=== PATIENT | female | born 1975 | race African-American/Black ===

== ENCOUNTER 2021-09-15 22:48 | Emergency (ER) | payer BC ==
[~2021-09-15] VITALS: Ht 167.6 cm; Wt 61.2 kg
--- NOTE | 2021-09-15 22:56 | NUR ---
[id number] FROM [facility] C/O SOB +ACCESSORY MUSCLE USE SINCE 10PM. PT A/OX1. O2 T-PIECE @ 4LPM SATTING AT 96%. CONNECTED PT TO POX AND MONITOR. SAFETY MEASURES IN PLACE
[2021-09-15] MEDS ORDERED: ACETAMINOPHEN 650 MG/SUPP.RECT RC ONE ×2 (23:00→23:15)
--- NOTE | 2021-09-15 23:05 | NUR ---
COVID ANTIGEN AND MRSA SWAB COLLECTED AND SENT TO LAB
--- NOTE | 2021-09-15 23:05 | NUR ---
LAC #20G S/L ; PATENT AND INTACT
--- NOTE | 2021-09-15 23:07 | NUR ---
METAL WINDOW SCREEN ASSEMBLER AT PT'S BEDSIDE
[2021-09-15] MEDS ORDERED: IPRA4AER IH ×2 (23:08)
[2021-09-15] MEDS ORDERED: LEVE100S GT (23:08)
[2021-09-15] MEDS ORDERED: METO-295 GT (23:08)
[2021-09-15] MEDS ORDERED: NUTR1PAC14 GT (23:08)
[2021-09-15] MEDS ORDERED: METO25TA6 GT (23:08)
[2021-09-15] MEDS ORDERED: FERR220E2 GT (23:08)
[2021-09-15] MEDS ORDERED: AMLO-212 PO (23:08)
[2021-09-15] MEDS ORDERED: CHOL100062 GT (23:08)
[2021-09-15] MEDS ORDERED: CHLO473M3 PO (23:08)
[2021-09-15] MEDS ORDERED: CLON0.1T GT (23:08)
--- NOTE | 2021-09-15 23:25 | NUR ---
F/C 16FR INSERTED. URINE COLLECTED AND SENT TO LAB
[2021-09-15 23:26] LABS: BASOPHILS # (AUTO) 0.3 K/uL (0.0-0.2); BASOPHILS % (AUTO) 1.2 % (0.0-2.0); EOSINOPHILS % (AUTO) 3.1 % (0.0-6.0); HEMATOCRIT 31 % (33-45); HEMOGLOBIN 9.7 g/dL (11.5-14.8); LYMPHOCYTES % (AUTO) 12.4 % (20.0-44.0); MEAN CORPUSCULAR HGB CONC 32 g/dl (31.0-36.0); MEAN CORPUSCULAR VOLUME 85 fL (82-100); MONOCYTES # (AUTO) 1.1 K/uL (0.1-1.30); MONOCYTES % (AUTO) 4.6 % (2.0-12.0); NEUTROPHILS # (AUTO) 19.1 K/uL (1.8-8.9); NEUTROPHILS % (AUTO) 78.7 % (43.0-81.0); PLATELET COUNT (AUTO) 402 K/uL (150-450); WHITE BLOOD COUNT (AUTO) 24.3 K/uL (4.3-11.0)
[2021-09-15 23:50] LABS: CALCIUM, SERUM 9.4 mg/dL (8.5-10.1); CARBON DIOXIDE 29 mmol/L (21-32); CHLORIDE 102 mmol/L (98-107); CREATININE 0.6 mg/dL (0.6-1.3); GLUCOSE 169 mg/dL (74-106); POTASSIUM 4.3 mmol/L (3.5-5.1); SODIUM SERUM 138 mmol/L (136-145); UREA NITROGEN, BLOOD 22 mg/dL (7-18)
[2021-09-15 23:58] LABS: BILIRUBIN,URINE NEGATIVE (NEGATIVE); COLOR,URINE YELLOW (YELLOW); LEUKOCYTE ESTERASE ,URINE SMALL (NEGATIVE); NITRITE, URINE NEGATIVE (NEGATIVE); PROTEIN,URINE 30 mg/dl (NEGATIVE); UGLUCOSE NEGATIVE (NEGATIVE); UROBILINOGEN,URINE 0.2 EU/dL (0.2)
[2021-09-15 23:58] LABS: ALANINE AMINOTRANSFERASE 43 U/L (12-78); ALBUMIN 2.8 g/dL (3.4-5.0); ALKALINE PHOSPHATASE 250 U/L (46-116); ASPARTATE AMINOTRANSFERASE 21 U/L (15-37); BILIRUBIN,DIRECT 0.1 mg/dL (0.0-0.2); BILIRUBIN,TOTAL 0.2 mg/dL (0.2-1.0); TOTAL PROTEIN, SERUM 7.5 g/dL (6.4-8.2)
[2021-09-16] MEDS ORDERED: CEFTRIAXONE 1GM BAG (ER ONLY) 50 ML IV ONE (00:19)
[2021-09-16] MEDS ORDERED: IOHEXOL-350 100 ML VIAL IV ONE (00:28)
[2021-09-16] MEDS ORDERED: IV NS 0.9% 250 ML IV ONE (00:28)
[2021-09-16] MEDS ORDERED: CEFTRIAXONE 1GM BAG (ER ONLY) 1 GM/50 ML PIGGYBACK IV ONE (00:30)
--- NOTE | 2021-09-16 01:12 | NUR ---
Sky noble in [facility] - 09/16/21 at 0114 by REAGAN COUNTER TOP MAKER AT PT'S BEDSIDE
--- NOTE | 2021-09-16 01:30 | NUR ---
CLINICAL INFO REPORT GIVEN TO DAFNE FROM [facility] FAXED COVID RESULT TO [phone]
[2021-09-16] MEDS ORDERED: AZITHROMYCIN 500 MG VIAL ONE (02:24)
--- NOTE | 2021-09-16 02:28 | NUR ---
PER [facility], PT ACCEPTED TO [facility] ACCEPTED UNDER DR. RAY, ROOM 542 CALL FOR REPORT [phone]
[2021-09-16] MEDS ORDERED: AZITHROMYCIN 500 MG in IV D5W 250 ML IV ONE (02:30)
--- NOTE | 2021-09-16 02:33 | NUR ---
CALLED [facility] FOR REPORT. NURSE GETTING REPORT WILL BE LISA. TOLD TO CALL BACK IN 10 MINUTES TO GIVE REPORT.
--- NOTE | 2021-09-16 04:13 | NUR ---
PER JAIDA NO ACLS IN ALL OF [place].
--- NOTE | 2021-09-16 05:25 | NUR ---
AM MITALI, PER JAIDA EARLIEST ETA 1300 HRS FOR ACLS.
--- NOTE | 2021-09-16 05:28 | NUR ---
CALLED [facility] FOR REPORT. TOLD TO GIVEN REPORT AFTER CHANGE OF SHIFT.
[2021-09-16 06:30] LABS: WBC,URINE 0-2 /HPF (0-3)
[2021-09-16 06:33] LABS: BACTERIA,URINE Few /HPF (None Seen); URIC ACID CRYSTALS,URINE Few /HPF (None Seen)
--- NOTE | 2021-09-16 06:54 | NUR ---
[facility] CALLED FOR AN UPDATE FOR EXHIBIT CARPENTER. PT WILL BE EXHIBIT CARPENTER AT 0482
--- NOTE | 2021-09-16 07:12 | NUR ---
REPORT GIVEN TO NATALIIA MURPHY FROM [facility] FOR MARVA.
[2021-09-16 11:10] VITALS: BP 120/66
== END 2021-09-16 11:43 | disposition short-term general hospital (02) ==
LOC: ER 22:54
DX: N39.0 Urinary tract infection, site not specified (principal); J18.9 Pneumonia, unspecified organism; R09.02 Hypoxemia; Z20.822 Contact with and (suspected) exposure to COVID-19; R94.31 Abnormal electrocardiogram [ECG] [EKG]; Z93.0 Tracheostomy status; R00.0 Tachycardia, unspecified; J96.90 Respiratory failure, unspecified, unspecified whether with hypoxia or hypercapnia; I10 Essential (primary) hypertension; Z87.820 Personal history of traumatic brain injury
CPT/HCPCS: 31720 ×2; 36415; 71045; 71275; 80048; 80076; 81001; 83605; 83880; 84484; 85025; 85730; 87040 ×2; 87086; 87081; 87426; 93005; 94799; 96365; 96367; 99285; C9803; J0456; J0696; J7050; Q9967

== ENCOUNTER 2022-02-11 09:44 | Inpatient (IN) | payer BC, OTHER ==
[~2022-02-11] VITALS: Ht 172.7 cm; Wt 69.4 kg
[2022-02-11] VITALS (32 sets, daily range): BP systolic 83–128; BP diastolic 25–60
[~2022-02-11 09:44] MED LIST: AMLO-212 GT; CHLO473M3 MM; CHOL100062 GT; CLON0.1T GT; FERR220E2 GT; IPRA4AER IH; LEVE100S GT; METO-295 GT; METO25TA6 GT; NUTR1PAC14 GT
--- NOTE | 2022-02-11 09:50 | NUR ---
RECIVED PT 46 YRS FEMALE TRANSFER from snf for low temp and low HR and LOW BP 86/55MMHG HR 54B/MIN SKIN PALE AND COLD TO TOUCH
--- NOTE | 2022-02-11 09:55 | NUR ---
SEEN BY DR. TOURE sept work up started
[2022-02-11] MEDS ORDERED: IV LR 1000 ML 1,000 ML IV ONE (10:00)
--- NOTE | 2022-02-11 10:10 | NUR ---
ELIDA [facility] PT CLOSED and keep warm and dry temp 88.4f RECTEL TEMP 4 WORM BLANCKET ELIDA AND BERHGER WARMER
--- NOTE | 2022-02-11 10:15 | NUR ---
I7o cathter done ua send to lab
--- NOTE | 2022-02-11 10:25 | NUR ---
QUANG TREVIZO SENT TO LAB
--- NOTE | 2022-02-11 10:30 | NUR ---
INSERTED ANGO CATHETER g [address] ac blood drow and sent to lab blood cultuer x 1 sent
[2022-02-11 10:33] LABS: BASOPHILS % (AUTO) 0.8 % (0.0-2.0); EOSINOPHILS % (AUTO) 2.7 % (0.0-6.0); LYMPHOCYTES # (AUTO) 0.8 K/uL (0.8-4.8); LYMPHOCYTES % (AUTO) 14.4 % (20.0-44.0); MEAN CORPUSCULAR HGB CONC 32 g/dl (31.0-36.0); MEAN CORPUSCULAR VOLUME 90 fL (82-100); MONOCYTES # (AUTO) 0.2 K/uL (0.1-1.30); MONOCYTES % (AUTO) 4.1 % (2.0-12.0); NEUTROPHILS # (AUTO) 4.2 K/uL (1.8-8.9); PLATELET COUNT (AUTO) 57 K/uL (150-450); RED BLOOD CELL COUNT(AUTO) 2.26 MIL/uL (4.0-5.2); WHITE BLOOD COUNT (AUTO) 5.4 K/uL (4.3-11.0)
[2022-02-11 10:36] LABS: HEMOGLOBIN 6.4 g/dL (11.5-14.8)
[2022-02-11 10:37] LABS: HEMATOCRIT 20 % (33-45)
[2022-02-11 10:46] LABS: CARBON DIOXIDE 32 mmol/L (21-32); CHLORIDE 104 mmol/L (98-107); CREATININE 0.4 mg/dL (0.6-1.3); GLUCOSE 93 mg/dL (74-106); POTASSIUM 5.4 mmol/L (3.5-5.1); SODIUM SERUM 139 mmol/L (136-145); UREA NITROGEN, BLOOD 16 mg/dL (7-18)
[2022-02-11 10:51] LABS: ALANINE AMINOTRANSFERASE 234 U/L (12-78); ALKALINE PHOSPHATASE 202 U/L (46-116); ASPARTATE AMINOTRANSFERASE 66 U/L (15-37); BILIRUBIN,TOTAL 0.2 mg/dL (0.2-1.0); TOTAL PROTEIN, SERUM 6.3 g/dL (6.4-8.2)
[2022-02-11] MEDS ORDERED: ACET325T53 GT (10:56)
[2022-02-11] MEDS ORDERED: CHOL200013 GT (10:56)
[2022-02-11] MEDS ORDERED: LACT-209 GT (10:56)
[2022-02-11] MEDS ORDERED: DOCU-141 GT (10:56)
[2022-02-11] MEDS ORDERED: BISA10SU11 RC (10:56)
[2022-02-11] MEDS ORDERED: MULT-439 GT (10:56)
[2022-02-11] MEDS ORDERED: ENOX40DI SQ (10:56)
[2022-02-11] MEDS ORDERED: NA P133E RC (10:56)
[2022-02-11] MEDS ORDERED: PIPERACILLIN /TAZOBACTAM 3.375 G in IV D5W 50 ML IV ONE (11:00)
[2022-02-11] MEDS ORDERED: AZITHROMYCIN 500 MG in IV D5W 250 ML IV ONE (11:00)
[2022-02-11 11:01] LABS: BILIRUBIN,URINE NEGATIVE (NEGATIVE); COLOR,URINE YELLOW (YELLOW); LEUKOCYTE ESTERASE ,URINE NEGATIVE (NEGATIVE); NITRITE, URINE NEGATIVE (NEGATIVE); PH,URINE 6.5 (5.0-8.0); PROTEIN,URINE NEGATIVE (NEGATIVE); UGLUCOSE NEGATIVE (NEGATIVE); UROBILINOGEN,URINE 0.2 EU/dL (0.2)
--- NOTE | 2022-02-11 11:12 | NUR ---
MANDA [phone]
[2022-02-11] MEDS ORDERED: PIPERACILLIN /TAZOBACTAM 3.375 G VIAL IV ONE (11:13)
[2022-02-11] MEDS ORDERED: AZITHROMYCIN 500 MG VIAL ONE (11:14)
--- NOTE | 2022-02-11 11:24 | NUR ---
[facility] CALLED SEED CLEANER OPERATOR PAGED.
[2022-02-11] MEDS: IV LR 1000 ML 1,000 ML IV ONE ×2 (12:26→12:29)
--- NOTE | 2022-02-11 12:35 | NUR ---
CALLED FOR MED LINE
--- NOTE | 2022-02-11 12:40 | NUR ---
DR. BURNS FROM [facility] AGREES WITH DR. TOURE THAT THE PT IS UNSTABLE TO TRANSFER AND WILL STAY HERE. [facility]HDI SERRATO FROM [facility] [phone]
[2022-02-11 12:45] LABS: LYMPHOCYTES % (MANUAL) 13 % (16-48); NEUTROPHILS % (MANUAL) 80 (42-76)
[2022-02-11 12:46] LABS: EOSINOPHILS % (MANUAL) 2 % (0-4); MONOCYTES % (MANUAL) 5 % (0-11.0)
--- NOTE | 2022-02-11 12:48 | NUR ---
WATING FOR ICU BED
--- NOTE | 2022-02-11 13:30 | NUR ---
Closly moniter pt temp contenue ALEKS LESLIE vs criticale stable contenue SUCTION DONE BY RT
--- NOTE | 2022-02-11 14:00 | NUR ---
WATING FOR ICU BED
--- NOTE | 2022-02-11 14:22 | NUR ---
BED 257
--- NOTE | 2022-02-11 14:27 | NUR ---
CALLED FOR REPORT, PER CAPRICE MURPHY, CALL BACK IN 20MIN, NURSE NOT AVAILABLE.
--- NOTE | 2022-02-11 14:46 | NUR ---
REPORT GIVEN TO JUANA MURPHY OF ICU
--- NOTE | 2022-02-11 15:00 | NUR ---
TO ROOM ICU BED 257 VIA MAYTE
--- NOTE | 2022-02-11 15:17 | NUR ---
Sky noble in [facility] - 02/11/22 at 1518 by [email or web address] WATING FOR ICU BED
--- NOTE | 2022-02-11 15:20 | NUR ---
ICU/RN PT ADMITED FROM ER .CHRONIC TRACH ON THE VENT .AC MODE.FIO2-40%,SAT O2-100%. T-94.5 RECTAL .HEATING BLANKET PLACED.G-TUBE CLAMPED.PT IS NPO. F/C DRAINING WITH CLOUDY YELLOW URINE.SKIN INTACT.PT IS OPEN EYES ,VEGETATIVE STATE,,WITH TRAUMATIC BRAIN INJURY.
[2022-02-11] MEDS ORDERED: Z GUARD REMEDY 4 OZ OINT TP PRN (16:30)
[2022-02-11] MEDS ORDERED: IV NS 0.9% 1,000 ML IV ONE (16:30)
[2022-02-11] MEDS ORDERED: ACETAMINOPHEN 650 MG/SUPP.RECT RC PRN (16:30)
[2022-02-11] MEDS: PANTOPRAZOLE 40 MG VIAL IV SCH (16:47)
[2022-02-11] MEDS ORDERED: VANCOMYCIN 1.25 GM in IV D5W 250 ML IV ONE (17:00)
--- NOTE | 2022-02-11 17:00 | NUR ---
ICU/RN MID LINE INSERTED.BLOOD TRANSFUSION STARTED ORDERED. 1 L BOLUS IV GIVEN ORDERED.
[2022-02-11] MEDS: IV NS 0.9% 250 ML IV PRN (17:22)
[2022-02-11] MEDS: NOREPINEPHRINE 8 MG in IV NS 0.9% 242 ML IV PRN (17:32)
--- NOTE | 2022-02-11 17:49 | NUR ---
Received pt in ER on Portex 7 cuffed trach with vent settings provided by transport RT. Pt tolerating settings well. No new orders Ambu bag + back up trach at bedside. Will continue to monitor
--- NOTE | 2022-02-11 18:56 | NUR ---
ICU/RN 1 UNIT PRBC GIVEN ORDERED.NO S/S OF TRANSFUSION REACTION NOTED.PT IS ON LEVOPHED DRIP. SUCTION PROVIDED.REPOSITION FOR COMFORT.
[2022-02-11 19:00] LABS: CALCIUM, SERUM 9.5 mg/dL (8.5-10.1); CREATININE 0.3 mg/dL (0.6-1.3); POTASSIUM 5.7 mmol/L (3.5-5.1)
--- NOTE | 2022-02-11 20:00 | NUR ---
Received patient obtunded vent trach dependent to mechanical vent.Settings well tolerated. Dx: Sepsis secondary to PNA.Hypotension.Ethel Hugger in place latest temp 97.2.Levophed gtt infusing for BP support and will titrate accordingly. GT clamped.FC to gravity.No acute distress noted.Turned and repositioned.Continue monitoring.
[2022-02-11] MEDS: HYDROCORTISONE SOD SUCCINATE 100 MG/2 ML VIAL IV SCH (20:26)
[2022-02-11] MEDS: MEROPENEM 1 G in IV NS 0.9% 100 ML IV SCH (20:26)
[2022-02-12] VITALS (84 sets, daily range): BP systolic 88–119; BP diastolic 45–72
[2022-02-12] MEDS: VANCOMYCIN 1 GM in IV D5W 250 ML IV SCH ×3 (00:45→16:38)
[2022-02-12] MEDS: HYDROCORTISONE SOD SUCCINATE 100 MG/2 ML VIAL IV SCH ×3 (05:01→21:16)
[2022-02-12] MEDS: MEROPENEM 1 G in IV NS 0.9% 100 ML IV SCH ×3 (05:01→21:16)
[2022-02-12 05:04] LABS: BASOPHILS # (AUTO) 0.1 K/uL (0.0-0.2); BASOPHILS % (AUTO) 0.7 % (0.0-2.0); EOSINOPHILS % (AUTO) 1.6 % (0.0-6.0); HEMATOCRIT 23 % (33-45); HEMOGLOBIN 7.7 g/dL (11.5-14.8); LYMPHOCYTES # (AUTO) 1.1 K/uL (0.8-4.8); LYMPHOCYTES % (AUTO) 11.5 % (20.0-44.0); MEAN CORPUSCULAR HGB CONC 33 g/dl (31.0-36.0); MEAN CORPUSCULAR VOLUME 88 fL (82-100); MONOCYTES # (AUTO) 0.4 K/uL (0.1-1.30); MONOCYTES % (AUTO) 4.1 % (2.0-12.0); NEUTROPHILS # (AUTO) 7.7 K/uL (1.8-8.9); NEUTROPHILS % (AUTO) 82.1 % (43.0-81.0); PLATELET COUNT (AUTO) 72 K/uL (150-450); RED BLOOD CELL COUNT(AUTO) 2.66 MIL/uL (4.0-5.2); WHITE BLOOD COUNT (AUTO) 9.4 K/uL (4.3-11.0)
[2022-02-12 05:20] LABS: ABG BASE EXCESS 4.1 mmol/L; ABG OXYGEN SATURATION 98.2 % (92.0-98.5); ABG PCO2 37.8 mmHg (35.0-45.0); ABG PH 7.484 (7.350-7.450); ABG PO2 118.7 mmHg (75.0-100.0); COHb 0.4 % (0.5-1.5); MetHb 0.2 % (0.0-1.5); O2Hb 97.6 % (94.0-97.0); PEEP,BG 0 cm H2O; SITE, ABG Left Radial; VENT MODE, BG AC 18 500 40%
[2022-02-12 05:38] LABS: ALBUMIN 1.8 g/dL (3.4-5.0); BILIRUBIN,TOTAL 0.3 mg/dL (0.2-1.0); CALCIUM, SERUM 9.3 mg/dL (8.5-10.1); CREATININE 0.4 mg/dL (0.6-1.3); MAGNESIUM 1.6 mg/dL (1.8-2.4); PHOSPHORUS 3.4 mg/dL (2.5-4.9); POTASSIUM 4.8 mmol/L (3.5-5.1); TOTAL PROTEIN, SERUM 5.9 g/dL (6.4-8.2)
--- NOTE | 2022-02-12 06:38 | NUR ---
Patient resting in no acute distress.VSS.SR with Levophed infusing at low dose. Hypothermic off and on.Mintain on Ethel hugger.AM care done.Oral hygiene done. Turned and repositioned.FIO2 titrated down to 30% by RT.Vent settings well tolerated.
[2022-02-12] MEDS: PANTOPRAZOLE 40 MG VIAL IV SCH (08:24)
[2022-02-12] MEDS: FLUDROCORTISONE 0.1 MG TABLET GT SCH (08:24)
[2022-02-12 08:31] LABS: EOSINOPHILS % (MANUAL) 2 % (0-4); LYMPHOCYTES % (MANUAL) 13 % (16-48); MONOCYTES % (MANUAL) 4 % (0-11.0); NEUTROPHILS % (MANUAL) 81 (42-76)
[2022-02-12] MEDS: Magnesium 1GM/D5W 100ML PREMIX 100 ML IV SCH ×2 (10:40→10:44)
--- NOTE | 2022-02-12 11:35 | NUR ---
Family Updated on Pt progress and plan of care. Sunshine (daughter) [phone]
[2022-02-12] MEDS: NOREPINEPHRINE 8 MG in IV NS 0.9% 242 ML IV PRN (11:43)
--- NOTE | 2022-02-12 16:40 | NUR ---
Pharmacy Instructed to hold Vanco IVPB dose @ 1700 and @ 02/13/22 @0100 due to elevated Vanco Trough Level. Random Vanco Level ordered for 02/13/22 in am
--- NOTE | 2022-02-12 21:30 | NUR ---
ICU/CHARGE ACCOUNTS AUDIT CLERK PT HAS LOTS OF THICK SECRETIONS WHICH REQUIRE FREQUENT ORAL CARE AND SUCTIONING. OFTEN THAT THE SATURATION GOES DOWN
[2022-02-13] VITALS (31 sets, daily range): BP systolic 92–114; BP diastolic 49–71
[2022-02-13] MEDS: VANCOMYCIN 1 GM in IV D5W 250 ML IV SCH (01:00)
--- NOTE | 2022-02-13 01:09 | NUR ---
ICU/DIRECTOR INFORMATION VANCO TROUGH YESTERDAY, 02/12/22 WAS ELEVATED AT 46. PHARMACY ADVISED DAY RN RAY TO HOLD NEXT 2 DOSES AND IN AM THERE WILL BE A RANDOM LEVEL DOWN. 0100-VANCO IVPB WAS HELD FOR THIS REASON, CHARGE NURSE MADE AWARE
[2022-02-13] MEDS: MEROPENEM 1 G in IV NS 0.9% 100 ML IV SCH ×3 (04:18→20:34)
[2022-02-13] MEDS: HYDROCORTISONE SOD SUCCINATE 100 MG/2 ML VIAL IV SCH ×3 (04:18→20:34)
[2022-02-13 04:40] LABS: BASOPHILS # (AUTO) 0.1 K/uL (0.0-0.2); BASOPHILS % (AUTO) 1.1 % (0.0-2.0); HEMATOCRIT 22 % (33-45); HEMOGLOBIN 7.4 g/dL (11.5-14.8); LYMPHOCYTES % (AUTO) 11.9 % (20.0-44.0); MEAN CORPUSCULAR HGB CONC 34 g/dl (31.0-36.0); MEAN CORPUSCULAR VOLUME 88 fL (82-100); MONOCYTES # (AUTO) 0.3 K/uL (0.1-1.30); MONOCYTES % (AUTO) 3.6 % (2.0-12.0); NEUTROPHILS # (AUTO) 6.8 K/uL (1.8-8.9); NEUTROPHILS % (AUTO) 83.4 % (43.0-81.0); PLATELET COUNT (AUTO) 63 K/uL (150-450); RED BLOOD CELL COUNT(AUTO) 2.48 MIL/uL (4.0-5.2); WHITE BLOOD COUNT (AUTO) 8.2 K/uL (4.3-11.0)
[2022-02-13 05:04] LABS: CALCIUM, SERUM 9.5 mg/dL (8.5-10.1); CREATININE 0.4 mg/dL (0.6-1.3); MAGNESIUM 1.9 mg/dL (1.8-2.4); PHOSPHORUS 4.3 mg/dL (2.5-4.9); POTASSIUM 3.9 mmol/L (3.5-5.1)
--- NOTE | 2022-02-13 06:43 | NUR ---
ICU/TRIAL MANAGEMENT ASSOCIATE PT IS OBTUNDED, AND DOESN'T MOVE AT ALL. HOWEVER PT APPEARS TO HAVE WOUNDS TO HER HANDS ALONG WITH SCARS, FINGERS WERE DIRTY. SOCIAL SERVICE CONSULT FOR POSSIBLE NEGLECT, PLACED IN COMPUTER.
--- NOTE | 2022-02-13 07:15 | NUR ---
NIGHT CLEANER Bedside report taken from [facility] nurse Pimentel. pt obtunded does not open eyes, does not follow commands or move bue or ble 0/5 movement. Pt has trach to vent fio2 30%, tolerating well. spo2 99 %. sole lung sounds clear but diminished at bases. pt has peg, npo at this time awaiting dietary orders. feeding pump requested from central supply. pt has salazar , intact and draining yellow urine. pt has wounds noted , see flowsheet. all lines traced. all drips verified. safey measures in place. will continue to monitor.
[2022-02-13] MEDS: PANTOPRAZOLE 40 MG VIAL IV SCH (08:20)
[2022-02-13] MEDS: FLUDROCORTISONE 0.1 MG TABLET GT SCH (08:20)
--- NOTE | 2022-02-13 15:00 | NUR ---
SAND CARRIER Pt bathed and cleaned. linen change done. skin check done, no new wounds noted. pt tolerated well. will continue to monitor.
[2022-02-13] MEDS: VANCOMYCIN HCL 0.75 GM in IV D5W 250 ML IV SCH (18:33)
--- NOTE | 2022-02-13 19:20 | NUR ---
SKATE BOARDER Bedside report given to [facility] nurse Angela MURPHY. pt obtunded and unarousable. pt ac vent settings, tolerating well. all lines traced. all drips verified. pt clean and dry. safety measures in place. no signs of acute distress at this time.
--- NOTE | 2022-02-13 19:40 | NUR ---
COMPTOMETRIST OPENING NOTES: RECEIVED PT IN BED OBTUNDED. ON TRACH TO [facility] VENT SETTINGS: S:8, AC-18, TV-500, FIO2- 30%, PEEP-0. IV ACCESS ON MAULIK MIDLINE INTACT AND PATENT. NO ACTIVE BLEEDING NOTED. NO FACIAL GRIMACING NOTED. NO ACUTE DISTRESS. GTUBE FEEDING WELL TOLERATED. ON JEVITY1.2 AT 65CC/HR. NO RESIDUAL NOTED. HIRSCH CATHETER IN PLACE. DRAINING BY GRAVITY. ALL SAFETY MEASURES IN PLACE. SIDE RAILS UP X3, BED IN LOWEST POSITION AND LOCKED. PLACE CALL LIGHT WITH IN REACH. WILL CONTINUE TO MONITOR.
[2022-02-14] VITALS (20 sets, daily range): BP systolic 92–123; BP diastolic 49–76
[2022-02-14 04:02] LABS: BASOPHILS # (AUTO) 0.1 K/uL (0.0-0.2); BASOPHILS % (AUTO) 1.9 % (0.0-2.0); EOSINOPHILS % (AUTO) 0.2 % (0.0-6.0); HEMATOCRIT 23 % (33-45); HEMOGLOBIN 7.4 g/dL (11.5-14.8); LYMPHOCYTES # (AUTO) 0.9 K/uL (0.8-4.8); LYMPHOCYTES % (AUTO) 16.5 % (20.0-44.0); MEAN CORPUSCULAR HGB CONC 32 g/dl (31.0-36.0); MEAN CORPUSCULAR VOLUME 90 fL (82-100); MONOCYTES # (AUTO) 0.4 K/uL (0.1-1.30); MONOCYTES % (AUTO) 6.6 % (2.0-12.0); NEUTROPHILS % (AUTO) 74.8 % (43.0-81.0); PLATELET COUNT (AUTO) 79 K/uL (150-450); RED BLOOD CELL COUNT(AUTO) 2.57 MIL/uL (4.0-5.2); WHITE BLOOD COUNT (AUTO) 5.3 K/uL (4.3-11.0)
[2022-02-14] MEDS: MEROPENEM 1 G in IV NS 0.9% 100 ML IV SCH ×3 (04:21→21:07)
[2022-02-14] MEDS: HYDROCORTISONE SOD SUCCINATE 100 MG/2 ML VIAL IV SCH ×3 (04:21→21:07)
[2022-02-14 04:34] LABS: CALCIUM, SERUM 9.3 mg/dL (8.5-10.1); CREATININE 0.5 mg/dL (0.6-1.3); MAGNESIUM 1.9 mg/dL (1.8-2.4); PHOSPHORUS 3.5 mg/dL (2.5-4.9); POTASSIUM 3.5 mmol/L (3.5-5.1)
[2022-02-14] MEDS: VANCOMYCIN HCL 0.75 GM in IV D5W 250 ML IV SCH ×2 (05:35→18:18)
[2022-02-14 06:07] LABS: ABG BASE EXCESS 0.1 mmol/L; ABG PCO2 30.9 mmHg (35.0-45.0); ABG PH 7.492 (7.350-7.450); ABG PO2 78.2 mmHg (75.0-100.0); AaDO2 99.4 mmHg; COHb 0.6 % (0.5-1.5); O2Hb 94.4 % (94.0-97.0); PEEP,BG 0 cm H2O; SITE, ABG Right Brachial; VENT MODE, BG ac 18 500 30% +0; VT, ABG 500 mL
--- NOTE | 2022-02-14 06:44 | NUR ---
POLICY ANALYST CLOSING NOTES: PT IN BED OBTUNDED. ON TRACH TO [facility] VENT SETTINGS: S:8, AC-18, TV-500, FIO2- 30%, PEEP-0. IV ACCESS ON MAULIK MIDLINE INTACT AND PATENT. NO ACTIVE BLEEDING NOTED. NO FACIAL GRIMACING NOTED. NO ACUTE DISTRESS. GTUBE FEEDING WELL TOLERATED. ON JEVITY1.2 AT 65CC/HR. NO RESIDUAL NOTED. HIRSCH CATHETER IN PLACE. DRAINING BY GRAVITY. ALL DUE MEDS GIVEN ORDERED. APPLIED BEAR HUGGER DUE LOW TEMP. INCREASED TO 97.8 F. ALL SAFETY MEASURES IN PLACE. SIDE RAILS UP X3, BED IN LOWEST POSITION AND LOCKED. PLACE CALL LIGHT WITH IN REACH. WILL ENDORSE TO MORNING SHIFT NURSE.
--- NOTE | 2022-02-14 07:30 | NUR ---
RN NOTES PT FOUND SEMI FOWLERS DISPLAYING NO S/S OF DISTRESS, FLACC = 0 AND BILATERAL RISE AND FALL OF THE CHEST OBSERVED. TRACH DRESSING IS CLEAN AND DRY. PEG DRESSING IS CLEAN AND DRY. R UA ML IS PATIENT AND INTACT. HIRSCH CATH RESERVOIR BELOW PATIENT DRAINING BY GRAVITY. RN WILL CONTINUE CARE PLAN AND ANTICIPATE NEEDS. SAFETY MEASURES IN PLACE, BED LOCKED AND IN LOWEST POSITION, SIDE RAILS UPX2, CALL LIGHT WITHIN REACH, BED ALARM ARMED.
[2022-02-14] MEDS ORDERED: PANTOPRAZOLE 40 MG/PACK PACK NG SCH (09:00)
[2022-02-14] MEDS: IV NS 0.9% 250 ML IV PRN (10:12)
[2022-02-14] MEDS ORDERED: NA PHOS,M-B/NA PHOS,DI-BA 1 EA ENEMA RC PRN (10:30)
[2022-02-14] MEDS ORDERED: ACETAMINOPHEN 325 MG TABLET MC PRN (10:30)
[2022-02-14] MEDS ORDERED: JEVITY 1.2 CAL 1,000 ML BOTTLE GT SCH (10:30)
[2022-02-14] MEDS ORDERED: BISACODYL SUPP (10 MG) 10 MG/SUPP.RECT SUPP.RECT RC PRN (10:30)
[2022-02-14] MEDS ORDERED: ALBUTEROL FS 2.5 MG/0.5 ML VIAL.NEB NEB PRN (10:30)
[2022-02-14] MEDS ORDERED: IPRATROPIUM NEB FS 0.5 MG/2.5 ML AMPUL.NEB NEB PRN (10:30)
[2022-02-14] MEDS: JEVITY 1.2 CAL 1,000 ML BOTTLE GT SCH (12:54)
[2022-02-14] MEDS: IPRATROPIUM NEB FS 0.5 MG/2.5 ML AMPUL.NEB NEB SCH ×2 (13:30→19:30)
[2022-02-14] MEDS: ALBUTEROL FS 2.5 MG/0.5 ML VIAL.NEB IH SCH ×2 (13:30→19:30)
[2022-02-14] MEDS: ONDANSETRON HCL/PF 4 MG/2 ML VIAL IVP PRN (15:21)
[2022-02-14] MEDS: CHLORHEXIDINE GLUCONATE 15 ML UDC MM SCH (17:01)
--- NOTE | 2022-02-14 17:30 | NUR ---
RN NOTES PT DOWNGRADED TO SHANT/TELE UNIT. PT TRANSPORTED VIA HOSPITAL BED ACCOMPANIED BY PRIMARY RN, RT AND UNIT MT. PT TRANSPORTED WITH PORTABLE BEDSIDE MONITOR. NO COMPLICATIONS DURING TRANSIT. BEDSIDE REPORT GIVEN TO JEFFREY ARREOLA. ALL QUESTIONS ANSWERED. PT PLACED ON TELE BOX. SBAR AND CHART GIVEN. RX BROUGHT. PT ENDORSED IN STABLE CONDITION FOR MARVA.
--- NOTE | 2022-02-14 17:35 | NUR ---
RN NOTES RECEIVED PT FROM ICU IN ROOM 115-1 , PT IS OBTUNDED, VENT/TRACH DEPENDENT, TOLERAING VENT SETTING WELL, ON TELE SR, HR IN 60'S , TF AT 65CC/HR RUNNING VIA PEG TUBE, RIGHT UPPER ARM IV SITE CDI , HIRSCH DRAINING TO GRAVITY, SR UP X3, CALL LIGHT WITHIN EASY REACH, CONTINUE TO MONITOR .
--- NOTE | 2022-02-14 18:30 | NUR ---
RN NOTES PT STABLE , WILL ENDORSE TO ACQUISITION MARKETING COORDINATOR NURSE FOR CONTINUITY OF CARE.
--- NOTE | 2022-02-14 19:30 | NUR ---
RN NOTES RECEIVED PT IN BED, PT IS OBTUNDED, ON MECH VENT, TOLERATING VENT SETTING WELL, NO S/S OF ACUTE DISTRESS, TELE MONITOR READING SR, IV ACCESS MAULIK MIDLINE TKO. G TUBE RUNNING JEVITY @65ML/HR, NO RESIDUAL NOTED. HIRSCH CATHETER DRAINING CLEAR YELLOW URINE. ALL SAFETY MEASURE BED LOWEST LOCKED POSITION, BED LIGHT WITHIN REACH, WILL CONTINUE TO MONITOR THROUGH OUT SHIFT.
--- NOTE | 2022-02-14 19:39 | NUR ---
RT Received pt on ordered vent settings: 18 450 30% 0 PEEP. Pt is asleep and appears comfortable on current settings. No S/S of respiratory distress. SPO2 99% upon initial assessment. Q6 neb tx given and tolerated. No adverse reactions noted. Pt is productive, and suctioned x3 on first round. Trach is patent and secured. Emergency trach and Ambu-bag bedside. Vent is plugged into a red outlet, and alarms are on and audible.
[2022-02-14] MEDS: LEVETIRACETAM SOL (5 ML) 100 MG/ML UDC GT SCH (21:07)
[2022-02-15] VITALS: BP 103/66
[2022-02-15] MEDS: IPRATROPIUM NEB FS 0.5 MG/2.5 ML AMPUL.NEB NEB SCH ×4 (01:42→20:21)
[2022-02-15] MEDS: ALBUTEROL FS 2.5 MG/0.5 ML VIAL.NEB IH SCH ×4 (01:42→20:21)
[2022-02-15 04:00] VITALS: BP 108/69
[2022-02-15] MEDS: MEROPENEM 1 G in IV NS 0.9% 100 ML IV SCH ×3 (05:07→20:42)
[2022-02-15] MEDS: HYDROCORTISONE SOD SUCCINATE 100 MG/2 ML VIAL IV SCH ×2 (05:07→16:09)
[2022-02-15] MEDS: VANCOMYCIN HCL 0.75 GM in IV D5W 250 ML IV SCH ×2 (06:07→17:15)
--- NOTE | 2022-02-15 06:43 | NUR ---
DUO CLOSING RN NOTES PT IN BED, ASLEEP, EASILY AROUSABLE, PT IS OBTUNDED, ON MECH VENT, TOLERATING VENT SETTING WELL, NO S/S OF ACUTE DISTRESS, TELE MONITOR READING SB HR 52, IV ACCESS MAULIK MIDLINE TKO. G TUBE NOT RUNNING, INTACT AND PATENT. HIRSCH CATHETER DRAINING CLEAR YELLOW URINE, OUTPUT 250ML. ALL DUE MEDS GIVEN .ALL SAFETY MEASURE BED LOWEST LOCKED POSITION, BED LIGHT WITHIN REACH, WILL ENDORSE TO MORNING SHIFT FOR CONTINUOUS CARE.
[2022-02-15 07:16] LABS: BASOPHILS # (AUTO) 0.1 K/uL (0.0-0.2); BASOPHILS % (AUTO) 1.5 % (0.0-2.0); HEMATOCRIT 23 % (33-45); HEMOGLOBIN 7.6 g/dL (11.5-14.8); LYMPHOCYTES # (AUTO) 1.4 K/uL (0.8-4.8); LYMPHOCYTES % (AUTO) 26.4 % (20.0-44.0); MEAN CORPUSCULAR HGB CONC 32 g/dl (31.0-36.0); MEAN CORPUSCULAR VOLUME 91 fL (82-100); MONOCYTES # (AUTO) 0.6 K/uL (0.1-1.30); MONOCYTES % (AUTO) 11.2 % (2.0-12.0); NEUTROPHILS # (AUTO) 3.3 K/uL (1.8-8.9); NEUTROPHILS % (AUTO) 59.9 % (43.0-81.0); PLATELET COUNT (AUTO) 122 K/uL (150-450); RED BLOOD CELL COUNT(AUTO) 2.56 MIL/uL (4.0-5.2); WHITE BLOOD COUNT (AUTO) 5.5 K/uL (4.3-11.0)
[2022-02-15 07:17] LABS: CALCIUM, SERUM 9.4 mg/dL (8.5-10.1); CREATININE 0.6 mg/dL (0.6-1.3); PHOSPHORUS 3.5 mg/dL (2.5-4.9); POTASSIUM 3.5 mmol/L (3.5-5.1)
--- NOTE | 2022-02-15 07:28 | NUR ---
TONY CRAIG RN NOTES PT IN BED, ASLEEP, EASILY AROUSAL, PT IS OBTUNDED, ON MECH VENT, TOLERATING VENT SETTING WELL, NO S/S OF ACUTE DISTRESS, TELE MONITOR READING SB HR 52, IV ACCESS MAULIK MIDLINE TKO. G TUBE NOT RUNNING, INTACT AND PATENT. HIRSCH CATHETER DRAINING CLEAR YELLOW URINE, OUTPUT ALL SAFETY MEASURE IN PLACE , BED LOWEST LOCKED POSITION, BED LIGHT WITHIN REACH, WILL CONTINUE TO MONITOR
[2022-02-15 08:00] VITALS: BP 122/68
[2022-02-15] MEDS: CHLORHEXIDINE GLUCONATE 15 ML UDC MM SCH ×2 (08:56→16:08)
[2022-02-15] MEDS: PANTOPRAZOLE 40 MG/PACK PACK GT SCH (08:57)
[2022-02-15] MEDS: DOCUSATE SODIUM LIQ 100 MG/10 ML UDC GT SCH (08:57)
[2022-02-15] MEDS: MULTIVIT W/MINERALS 1 TAB TABLET GT SCH (08:57)
[2022-02-15] MEDS: FERROUS SULFATE UDC 300 MG/5 ML UDC GT SCH (08:57)
[2022-02-15] MEDS: LEVETIRACETAM SOL (5 ML) 100 MG/ML UDC GT SCH ×2 (08:57→20:42)
[2022-02-15] MEDS: CHOLECALCIFEROL 1,000 UNIT TABLET (VIT D3) GT SCH (08:58)
[2022-02-15 12:00] VITALS: BP 98/55
[2022-02-15] MEDS: JEVITY 1.2 CAL 1,000 ML BOTTLE GT SCH (14:08)
[2022-02-15 17:10] VITALS: BP 105/65
--- NOTE | 2022-02-15 19:02 | NUR ---
DUO CLOSE RN NOTES PT IN BED, ASLEEP, EASILY AROUSAL, PT IS OBTUNDED, ON MECH VENT, TOLERATING VENT SETTING WELL, NO S/S OF ACUTE DISTRESS, TELE MONITOR READING SB HR 40, IV ACCESS MAULIK MIDLINE TKO. G TUBE RUNNING,55 ML/HR JEVITY, INTACT AND PATENT. HIRSCH CATHETER DRAINING CLEAR YELLOW URINE, ALL SAFETY MEASURE IN PLACE , BED LOWEST LOCKED POSITION, BED LIGHT WITHIN REACH,
--- NOTE | 2022-02-15 19:30 | NUR ---
SHANT RN OPENING NOTES RECEIVED PT IN BED, PT IS OBTUNDED, ON MECH VENT, TOLERATING VENT SETTING WELL, NO S/S OF ACUTE RESP DISTRESS, TELE MONITOR READING SB 38, NURSE AND MORNING CHARGE NURSE ADVISED DR. NOTIFIED EARLIER AND NO NEW ORDERS LONG BP IS NORMAL. IN THE DR NOTE UNDER EXAM IT ONLY MENTIONS HR DROPPING DOWN IN THE LOW 50'S NOT HIGH 30'S. WILL CONTINUE TO MONITOR AND DISCUSS PLAN WITH NIGHT CHARGE FOR FURTHER CARE. IV ACCESS MAULIK MIDLINE TKO. G TUBE RUNNING JEVITY @65ML/HR, NO RESIDUAL NOTED. HIRSCH CATHETER DRAINING CLEAR YELLOW URINE. PT ON DROPLET PRECAUTIONS. ALL SAFETY MEASURE BED LOWEST LOCKED POSITION, BED LIGHT WITHIN REACH, WILL CONTINUE TO MONITOR THROUGH OUT SHIFT.
[2022-02-15 20:00] VITALS: BP 96/67
[2022-02-16] VITALS: BP 99/51
--- NOTE | 2022-02-16 00:15 | NUR ---
SHANT RN NOTE PATIENT TEMP WAS LOW AT 95.9, 2 WARMING BLANKETS PLACED.
--- NOTE | 2022-02-16 00:50 | NUR ---
SHANT RN NOTE PATIENTS HR HAS DROPPED DOWN TO 38 A FEW TIMES AND GOES BACK TO HIGH 40'S - LOW 50'S. DR DUDLEY SAID IF IT HAPPENED AGAIN GET A STAT EKG AND TEXT THE RESULTS
[2022-02-16] MEDS: ALBUTEROL FS 2.5 MG/0.5 ML VIAL.NEB IH SCH ×4 (01:45→20:24)
[2022-02-16] MEDS: IPRATROPIUM NEB FS 0.5 MG/2.5 ML AMPUL.NEB NEB SCH ×4 (01:45→20:24)
[2022-02-16 04:00] VITALS: BP 93/57
--- NOTE | 2022-02-16 04:20 | NUR ---
SHANT RN NOTE PATIENT TEMP STILL LOW GAVE WARM BATH AND MORE BLANKETS
[2022-02-16] MEDS: MEROPENEM 1 G in IV NS 0.9% 100 ML IV SCH ×3 (05:21→20:20)
--- NOTE | 2022-02-16 06:36 | NUR ---
SHANT RN NOTE ALEKS CHOW REQUESTED FROM NURSING OFFICE FOR TEMP STILL LOW
[2022-02-16] MEDS: VANCOMYCIN HCL 0.75 GM in IV D5W 250 ML IV SCH ×2 (06:38→16:55)
[2022-02-16 06:51] LABS: BASOPHILS % (AUTO) 0.5 % (0.0-2.0); EOSINOPHILS % (AUTO) 2.4 % (0.0-6.0); HEMATOCRIT 24 % (33-45); HEMOGLOBIN 7.6 g/dL (11.5-14.8); LYMPHOCYTES # (AUTO) 1.6 K/uL (0.8-4.8); LYMPHOCYTES % (AUTO) 22.3 % (20.0-44.0); MEAN CORPUSCULAR HGB CONC 32 g/dl (31.0-36.0); MEAN CORPUSCULAR VOLUME 92 fL (82-100); MONOCYTES # (AUTO) 0.6 K/uL (0.1-1.30); MONOCYTES % (AUTO) 8.9 % (2.0-12.0); NEUTROPHILS # (AUTO) 4.6 K/uL (1.8-8.9); NEUTROPHILS % (AUTO) 65.9 % (43.0-81.0); PLATELET COUNT (AUTO) 131 K/uL (150-450); RED BLOOD CELL COUNT(AUTO) 2.63 MIL/uL (4.0-5.2)
--- NOTE | 2022-02-16 06:59 | NUR ---
DUO CLOSING RN NOTES PT IN BED, ASLEEP, EASILY AROUSABLE, PT IS OBTUNDED, ON MECH VENT, TOLERATING VENT SETTING WELL, NO S/S OF ACUTE DISTRESS, TELE MONITOR READING SB HR 47-53, IV ACCESS MAULIK MIDLINE TKO. G TUBE CURRENTLY RUNNING VANCO @250ML/HR INTACT AND PATENT. HIRSCH CATHETER DRAINING CLEAR YELLOW URINE, OUTPUT 250ML. ALL DUE MEDS GIVEN .ALL SAFETY MEASURE BED LOWEST LOCKED POSITION, BED LIGHT WITHIN REACH, WILL ENDORSE TO MORNING SHIFT FOR CONTINUOUS CARE.
[2022-02-16 07:33] LABS: CALCIUM, SERUM 9.1 mg/dL (8.5-10.1); CREATININE 0.5 mg/dL (0.6-1.3); POTASSIUM 3.6 mmol/L (3.5-5.1)
[2022-02-16 08:00] VITALS: BP 96/51
--- NOTE | 2022-02-16 08:00 | NUR ---
CATALOG SPECIALIST NOTE PATIENT REMAINS IN BED, . A/OX1. NON VERBAL, ON MECHANICAL VENT AND TOLERATING CURRENT SETTINGS WELL. NO SOB NOTED. NO S/SX OF RESPIRATORY DISTRESS NOTED. ON TELE MONITORING CURRENTLY READING SR 45-52. IV ACCESS IN MAULIK MID LINE INTACT, PATENT, AND FLUSHING WELL. WITH G-TUBE FEEDING IN PLACE ,JEVITY @ 55 ML/HR STARTED ORDERED KEEP HOB ELEVATED AT ALL TIME HIRSCH CATHETER IN PLACE. SAFETY PRECAUTIONS IN PLACE: BED IN LOWEST, LOCKED POSITION, SIDERAILS UP X3. KEPT DRY AND CLEAN, CALL LIGHT WITHIN REACH. ALL NEEDS MET ATTENDED. WILL CONT TO MONITOR FREQUENT S TRACH AND ORAL SUCTION DONE MOTH CARE DONE RT AT BEDSIDE.
[2022-02-16] MEDS: JEVITY 1.2 CAL 1,000 ML BOTTLE GT SCH (08:04)
[2022-02-16] MEDS: CHLORHEXIDINE GLUCONATE 15 ML UDC MM SCH ×2 (09:21→16:30)
[2022-02-16] MEDS: DOCUSATE SODIUM LIQ 100 MG/10 ML UDC GT SCH (09:21)
[2022-02-16] MEDS: HYDROCORTISONE SOD SUCCINATE 100 MG/2 ML VIAL IV SCH ×2 (09:21→16:31)
[2022-02-16] MEDS: FERROUS SULFATE UDC 300 MG/5 ML UDC GT SCH (09:21)
[2022-02-16] MEDS: LEVETIRACETAM SOL (5 ML) 100 MG/ML UDC GT SCH (09:21)
[2022-02-16] MEDS: MULTIVIT W/MINERALS 1 TAB TABLET GT SCH (09:21)
[2022-02-16] MEDS: CHOLECALCIFEROL 1,000 UNIT TABLET (VIT D3) GT SCH (09:21)
[2022-02-16] MEDS: PANTOPRAZOLE 40 MG/PACK PACK GT SCH (09:21)
--- NOTE | 2022-02-16 10:31 | NUR ---
manager telemarketing note per dietary Jevity at 55 ml mper hour for 20 hour keep hobelelvated , unable to check t ,placed warm blanket will f\u
--- NOTE | 2022-02-16 11:00 | NUR ---
lucina rn note reported to Carlota muller acute care clinical nurse specialist that hr ranges sb 42-55 but bp 95/46 ordered bolus 500 ml of ns will f\u
[2022-02-16 12:00] VITALS: BP 95/46
[2022-02-16] MEDS ORDERED: IV NS 0.9% 500 ML BAG IV ONE (12:00)
--- NOTE | 2022-02-16 12:00 | NUR ---
lucina rn note bolus 500 ns ns given as ordered
[2022-02-16 13:29] LABS: BAND % (MANUAL) 1 % (0.0-5.0); EOSINOPHILS % (MANUAL) 4 % (0-4); LYMPHOCYTES % (MANUAL) 27 % (16-48); MONOCYTES % (MANUAL) 4 % (0-11.0); NEUTROPHILS % (MANUAL) 64 (42-76)
[2022-02-16] MEDS: ONDANSETRON HCL/PF 4 MG/2 ML VIAL IVP PRN (13:54)
--- NOTE | 2022-02-16 13:54 | NUR ---
lucina rn note c\o vomiting Zofran ivp given as ordered
--- NOTE | 2022-02-16 15:41 | NUR ---
telephone claims representative note bp 89/45 will monitor
[2022-02-16 16:00] VITALS: BP 90/47
[2022-02-16] MEDS: ACETAMINOPHEN 650 MG/20.3 ML UDC GT PRN ×2 (16:55→23:01)
--- NOTE | 2022-02-16 17:07 | NUR ---
telemetry monitor note resting comfortably t 101.1 Tylenol nol via g tube given, cooling measure provided
--- NOTE | 2022-02-16 18:33 | NUR ---
SEWING MACHINE ATTACHMENT TESTER NOTE , RESTING COMFORTABLY ,KEEP HOB ELEVATED WITH TRACH TO VENT SETTING, NOT IN DISTRESS
[2022-02-16] MEDS ORDERED: LORAZEPAM INJ 2 MG/ML VIAL IV ONE (18:45)
--- NOTE | 2022-02-16 18:49 | NUR ---
CSW NOTE ROUNDS MADE NOTED PATINT HAS SEIZURE ,NOTED TWITCHING HANDS AND FACE, CALLED TO BRE MURPHY OB TECH WITH ORDER ATIVAN 2 MG IV TIME ONE NOW AND PRN AND START KEPPRA 1000 MG IV BID ,ORDER CARRIED OUT
--- NOTE | 2022-02-16 19:15 | NUR ---
RN OPENING NOTES RECEIVED PATIENT ON BED, OBTUNDED. PT. ON TRACH- S#8 , WITH VENT SETTING AC-18, TIDAL VOLUME- 500, FIO2- 100%. SATING AT 100%. WITH MAULIK MID LINE, PATENT, INTACT, FLUSHED WITH NS. NO S/S OF INFILTRATION NOTED. GTUBE PATENT AND INTACT, VERIFIED PLACEMENT BY AUSCULTATION, NO RESIDUAL NOTED UPON ASPIRATION, FLUSHED WITH WATER, RUNNING WITH JEVITY 1.2 @ 55 ML/HR X 20 HRS. HIRSCH CATHETER PATENT INTACT DRAINING CLEAR YELLOW URINE VIA GRAVITY. REPOSITION EVERY 2 HRS. ALL SAFETY PRECAUTION PROVIDED, BED IN LOWEST POSITION, LOCKED. BED ALARM ARMED. CALL LIGHT WITH IN REACH. CONTINUE TO MONITOR.
[2022-02-16 20:00] VITALS: BP 89/40
--- NOTE | 2022-02-16 20:30 | NUR ---
RN NOTES PATIENT NOTED WITH LOW BP-89/40, DR. DUDLEY NOTIFIED WITH NEW ORDER BOLUS NS 1LITER, NOTED AND CARRIED OUT. AND ALSO NOTED WITH TEMP-100.1, COOLING MEASURE PROVIDED, ACETAMINOPHEN NOT DUE YET. CONTINUE TO MONITOR.
[2022-02-16] MEDS ORDERED: LEVETIRACETAM (500MG) 1,000 MG in IV NS 0.9% 100 ML IV SCH (21:00)
[2022-02-16] MEDS ORDERED: IV NS 0.9% 1,000 ML IV ONE (21:30)
[2022-02-16] MEDS: DOXYCYCLINE HYCLATE (100 MG) 100 MG TABLET PO SCH (21:51)
[2022-02-16] MEDS ORDERED: LORAZEPAM INJ 2 MG/ML VIAL IV PRN (22:00)
[2022-02-16] MEDS: COLISTIMETHATE SODIUM 75 MG in IV NS 0.9% 50 ML IV SCH (22:08)
--- NOTE | 2022-02-16 22:30 | NUR ---
RN NOTES IV BOLUS DONE, BP RECHECKED AND OBTAINED 90/46, PULSE 52. CONTINUE TO MONITOR.
--- NOTE | 2022-02-16 23:00 | NUR ---
RN NOTES PATIENT NOTED WITH TEMP- 99.9 DEGREE FAHRENHEIT, COOLING MEASURE PROVIDED, ACETAMINOPHEN 650MG GIVEN VIA GT. CONTINUE TO MONITOR.
[2022-02-17] VITALS: BP 85/46
--- NOTE | 2022-02-17 | NUR ---
RN NOTES TEMPERATURE RECHECKED AND OBTAINED 97.3 DEGREE FAHRENHEIT. CONTINUE TO MONITOR.
--- NOTE | 2022-02-17 00:30 | NUR ---
RN NOTES PATIENT NOTED WITH LOW BP- 82/52, DR. DUDLEY NOTIFIED WITH NEW ORDER MIDODRINE 10MG ONCE VIA GT NOTED AND CARRIED OUT. CONTINUE TO MONITOR
[2022-02-17] MEDS ORDERED: MIDODRINE HCL (5MG) 5 MG TABLET GT ONE (00:45)
--- NOTE | 2022-02-17 01:30 | NUR ---
RN NOTES BP RECHECKED AND OBTAINED 92/60.
[2022-02-17] MEDS: ALBUTEROL FS 2.5 MG/0.5 ML VIAL.NEB IH SCH ×4 (01:56→20:15)
[2022-02-17] MEDS: IPRATROPIUM NEB FS 0.5 MG/2.5 ML AMPUL.NEB NEB SCH ×4 (01:56→20:14)
--- NOTE | 2022-02-17 02:30 | NUR ---
RN NOTES BP RECHECKED AND OBTAINED 100/63.
[2022-02-17] MEDS: IV NS 0.9% 250 ML IV PRN (03:06)
[2022-02-17 04:00] VITALS: BP 82/52
--- NOTE | 2022-02-17 04:00 | NUR ---
RN NOTES PATIENT NOTED WITH TEMPERATURE 94.1 DEGREE FAHRENHEIT, ALEKS HUGGER APPLIED. CONTINUE TO MONITOR.
[2022-02-17 06:44] LABS: BASOPHILS # (AUTO) 0.1 K/uL (0.0-0.2); BASOPHILS % (AUTO) 0.9 % (0.0-2.0); EOSINOPHILS % (AUTO) 1.5 % (0.0-6.0); HEMATOCRIT 22 % (33-45); LYMPHOCYTES # (AUTO) 1.5 K/uL (0.8-4.8); LYMPHOCYTES % (AUTO) 19.9 % (20.0-44.0); MEAN CORPUSCULAR HGB CONC 32 g/dl (31.0-36.0); MEAN CORPUSCULAR VOLUME 93 fL (82-100); MONOCYTES # (AUTO) 0.6 K/uL (0.1-1.30); NEUTROPHILS # (AUTO) 5.1 K/uL (1.8-8.9); NEUTROPHILS % (AUTO) 69.7 % (43.0-81.0); PLATELET COUNT (AUTO) 162 K/uL (150-450); RED BLOOD CELL COUNT(AUTO) 2.32 MIL/uL (4.0-5.2); WHITE BLOOD COUNT (AUTO) 7.3 K/uL (4.3-11.0)
[2022-02-17 07:07] LABS: CALCIUM, SERUM 8.6 mg/dL (8.5-10.1); CREATININE 0.4 mg/dL (0.6-1.3); POTASSIUM 3.4 mmol/L (3.5-5.1)
--- NOTE | 2022-02-17 07:57 | NUR ---
RN OPENING NOTES RECEIVED PATIENT ON BED, OBTUNDED. TRACH IN PLACE S#8 , WITH VENT SETTING TOLERATED WELL. AC-18, TIDAL VOLUME- 500, FIO2- 100%. SATING AT 100%. MAULIK MID LINE IN PLACE, PATENT, INTACT. GTUBE IN PLACE WITH FEEDING JEVITY 1.2 @ 55 ML/HR X [address] DRAINING WELL. ALL SAFETY PRECAUTION FOLLOWED.
[2022-02-17 08:00] VITALS: BP 106/64
[2022-02-17] MEDS: PANTOPRAZOLE 40 MG/PACK PACK GT SCH (08:41)
[2022-02-17] MEDS: CHOLECALCIFEROL 1,000 UNIT TABLET (VIT D3) GT SCH (08:42)
[2022-02-17] MEDS: FLUDROCORTISONE 0.1 MG TABLET GT SCH (08:42)
[2022-02-17] MEDS: FERROUS SULFATE UDC 300 MG/5 ML UDC GT SCH (08:42)
[2022-02-17] MEDS: DOCUSATE SODIUM LIQ 100 MG/10 ML UDC GT SCH (08:42)
[2022-02-17] MEDS: MULTIVIT W/MINERALS 1 TAB TABLET GT SCH (08:42)
[2022-02-17] MEDS: DOXYCYCLINE HYCLATE (100 MG) 100 MG TABLET PO SCH ×2 (08:42→20:46)
[2022-02-17] MEDS: LEVETIRACETAM SOL (5 ML) 100 MG/ML UDC GT SCH ×2 (08:42→20:46)
[2022-02-17] MEDS: CHLORHEXIDINE GLUCONATE 15 ML UDC MM SCH ×2 (08:42→17:53)
[2022-02-17] MEDS: HYDROCORTISONE SOD SUCCINATE 100 MG/2 ML VIAL IV SCH ×2 (08:48→17:54)
[2022-02-17] MEDS ORDERED: POTASSIUM CHLORIDE 20 MEQ POWDER PACKET GT SCH (10:00)
[2022-02-17] MEDS: COLISTIMETHATE SODIUM 75 MG in IV NS 0.9% 50 ML IV SCH ×2 (10:04→20:47)
[2022-02-17 12:00] VITALS: BP 93/54
[2022-02-17 14:11] LABS: BAND % (MANUAL) 1 % (0.0-5.0); EOSINOPHILS % (MANUAL) 1 % (0-4); LYMPHOCYTES % (MANUAL) 22 % (16-48); MONOCYTES % (MANUAL) 4 % (0-11.0); NEUTROPHILS % (MANUAL) 72 (42-76)
[2022-02-17 16:00] VITALS: BP 101/57
--- NOTE | 2022-02-17 19:24 | NUR ---
RN OPENING NOTES PATIENT RESTING ON BED, OBTUNDED. TRACH IN PLACE S#8 , WITH VENT SETTING TOLERATED WELL. AC-18, TIDAL VOLUME- 500, FIO2- 100%. SATING AT 100%. MAULIK MID LINE IN PLACE, PATENT, INTACT. GTUBE IN PLACE WITH FEEDING JEVITY 1.2 @ 55 ML/HR X [address] DRAINING WELL. DUE MEDS GIVEN. AM/PM CARE DONE. ALL SAFETY PRECAUTION FOLLOWED.
[2022-02-17 20:00] VITALS: BP 93/46
[2022-02-17] MEDS: JEVITY 1.2 CAL 1,000 ML BOTTLE GT SCH (20:49)
[2022-02-18] VITALS (10 sets, daily range): BP systolic 102–127; BP diastolic 57–73
[2022-02-18] MEDS: IPRATROPIUM NEB FS 0.5 MG/2.5 ML AMPUL.NEB NEB SCH ×4 (00:54→20:03)
[2022-02-18] MEDS: ALBUTEROL FS 2.5 MG/0.5 ML VIAL.NEB IH SCH ×4 (00:54→20:03)
--- NOTE | 2022-02-18 06:20 | NUR ---
RN NOTES ABG RESULT RELAYED TO DR AL WITH NO NEW ORDER
[2022-02-18 07:16] LABS: BASOPHILS # (AUTO) 0.1 K/uL (0.0-0.2); BASOPHILS % (AUTO) 0.8 % (0.0-2.0); EOSINOPHILS % (AUTO) 1.7 % (0.0-6.0); HEMATOCRIT 21 % (33-45); LYMPHOCYTES # (AUTO) 1.9 K/uL (0.8-4.8); MEAN CORPUSCULAR HGB CONC 32 g/dl (31.0-36.0); MEAN CORPUSCULAR VOLUME 93 fL (82-100); MONOCYTES # (AUTO) 0.6 K/uL (0.1-1.30); MONOCYTES % (AUTO) 5.6 % (2.0-12.0); NEUTROPHILS # (AUTO) 7.9 K/uL (1.8-8.9); NEUTROPHILS % (AUTO) 73.9 % (43.0-81.0); PLATELET COUNT (AUTO) 233 K/uL (150-450); RED BLOOD CELL COUNT(AUTO) 2.29 MIL/uL (4.0-5.2); WHITE BLOOD COUNT (AUTO) 10.7 K/uL (4.3-11.0)
--- NOTE | 2022-02-18 07:17 | NUR ---
RN NOTES PATIENT STILL ON VENT WITH PRESCRIBED SETTING NO SOB NO DISTRESS AT THIS TIME. STILL WITH GT PATENT CONNECTED TO TF TOLERATED WELL NO GASTRIC RESIDUAL NOTED. WITH IV ACCESS MAULIK MIDLINE PATENT FLUSHES WELL. HIRSCH PATENT CONNECTED TO URINE BAG DRAINING YELLOWISH URINE. ALL SAFETY MEASURES IN PLACE. HOB ELEVATED. CALL LIGHT WITHIN REACH. WILL ENDORSED TO MORNING SHIFT FOR MARVA
[2022-02-18 07:26] LABS: HEMOGLOBIN 6.8 g/dL (11.5-14.8)
[2022-02-18 07:36] LABS: CALCIUM, SERUM 8.9 mg/dL (8.5-10.1); CREATININE 0.4 mg/dL (0.6-1.3); POTASSIUM 4.2 mmol/L (3.5-5.1)
[2022-02-18] MEDS ORDERED: LORATADINE 10 MG TABLET PO ONE (08:00)
[2022-02-18] MEDS ORDERED: ACETAMINOPHEN 325 MG TABLET PO ONE (08:00)
[2022-02-18] MEDS ORDERED: diphenhydrAMINE HCL 50 MG/ML VIAL IV ONE ×2 (08:00)
--- NOTE | 2022-02-18 08:00 | NUR ---
RT NOTE: PT RECEIVED STABLE UNABLE TO FOLLOW COMMANDS. PT VENT IS PLUGGED INTO RED OUTLET. BAG AND MASK AT BEDSIDE AND SPARE TRACH. BILAT BREATH SOUNDS AND CHEST RISE OBSERVED. PT SHOWS NO SIGNS OF DISTRESS. VENT ALARMS ARE ON AND AUDIBLE. PT TRACH IS PATENT AND SECURE WILL CONTINUE CURRENT THERAPY.
[2022-02-18] MEDS: PANTOPRAZOLE 40 MG/PACK PACK GT SCH (08:45)
[2022-02-18] MEDS: FERROUS SULFATE UDC 300 MG/5 ML UDC GT SCH (08:45)
[2022-02-18] MEDS: DOXYCYCLINE HYCLATE (100 MG) 100 MG TABLET PO SCH ×2 (08:45→21:20)
[2022-02-18] MEDS: LEVETIRACETAM SOL (5 ML) 100 MG/ML UDC GT SCH ×2 (08:45→21:20)
[2022-02-18] MEDS: FLUDROCORTISONE 0.1 MG TABLET GT SCH (08:45)
[2022-02-18] MEDS: DOCUSATE SODIUM LIQ 100 MG/10 ML UDC GT SCH (08:45)
[2022-02-18] MEDS: CHLORHEXIDINE GLUCONATE 15 ML UDC MM SCH ×2 (08:45→16:06)
[2022-02-18] MEDS: MULTIVIT W/MINERALS 1 TAB TABLET GT SCH (08:45)
[2022-02-18] MEDS: CHOLECALCIFEROL 1,000 UNIT TABLET (VIT D3) GT SCH (08:45)
[2022-02-18] MEDS: HYDROCORTISONE SOD SUCCINATE 100 MG/2 ML VIAL IV SCH ×2 (08:46→16:06)
[2022-02-18 09:54] LABS: EOSINOPHILS % (MANUAL) 3 % (0-4); LYMPHOCYTES % (MANUAL) 13 % (16-48); MONOCYTES % (MANUAL) 12 % (0-11.0); NEUTROPHILS % (MANUAL) 72 (42-76)
[2022-02-18] MEDS: ACETAMINOPHEN 650 MG/20.3 ML UDC GT PRN (09:55)
[2022-02-18] MEDS: COLISTIMETHATE SODIUM 75 MG in IV NS 0.9% 50 ML IV SCH ×2 (14:37→21:20)
[2022-02-19] VITALS (7 sets, daily range): BP systolic 89–125; BP diastolic 55–68
[2022-02-19] MEDS: ALBUTEROL FS 2.5 MG/0.5 ML VIAL.NEB IH SCH ×4 (01:46→20:00)
[2022-02-19] MEDS: IPRATROPIUM NEB FS 0.5 MG/2.5 ML AMPUL.NEB NEB SCH ×4 (01:46→20:00)
[2022-02-19 06:55] LABS: BASOPHILS # (AUTO) 0.1 K/uL (0.0-0.2); BASOPHILS % (AUTO) 0.9 % (0.0-2.0); EOSINOPHILS % (AUTO) 1.8 % (0.0-6.0); HEMATOCRIT 27 % (33-45); LYMPHOCYTES # (AUTO) 1.4 K/uL (0.8-4.8); LYMPHOCYTES % (AUTO) 17.1 % (20.0-44.0); MEAN CORPUSCULAR HGB CONC 32 g/dl (31.0-36.0); MEAN CORPUSCULAR VOLUME 93 fL (82-100); MONOCYTES # (AUTO) 0.6 K/uL (0.1-1.30); MONOCYTES % (AUTO) 7.4 % (2.0-12.0); NEUTROPHILS # (AUTO) 6.1 K/uL (1.8-8.9); NEUTROPHILS % (AUTO) 72.8 % (43.0-81.0); PLATELET COUNT (AUTO) 275 K/uL (150-450); WHITE BLOOD COUNT (AUTO) 8.4 K/uL (4.3-11.0)
[2022-02-19 07:01] LABS: CREATININE 0.5 mg/dL (0.6-1.3); POTASSIUM 3.6 mmol/L (3.5-5.1)
[2022-02-19 07:04] LABS: HEMOGLOBIN 8.6 g/dL (11.5-14.8)
--- NOTE | 2022-02-19 08:00 | NUR ---
METAL MOULDER'S ASSISTANT NOTES PATIENT IN BED AWAKE BOTH EYES OPEN AT THIS TIME, WIT TRACH TO ON VENT SETTING WITH PRESCRIBED ,NO SOB AT THIS TIME.L WITH GT PATENT CONNECTED TO TF TOLERATED WELL NO GASTRIC RESIDUAL NOTED. WITH IV ACCESS MAULIK MIDLINE PATENT FLUSHES WELL. HIRSCH TO GRAVITY WITH YELLOWISH CLOUDY URINE NOTED ALL SAFETY MEASURES IN PLACE. HOB ELEVATED. CALL LIGHT WITHIN REACH. ON TELE MONITOR SB HR 42-45 BP 89/60 WILL MONITOR CLOSELY
--- NOTE | 2022-02-19 08:30 | NUR ---
CONSTRUCTION ADMINISTRATIVE ASSISTANT NOTE RECEIVED CALLED FROM RADIOLOGY FOR CT HEAD , PATIENT NOT STABLE TO TO TRANSFER TO RADIOLOGY AT THIS TIME ,VERY FRAGILE AND NOT STABLE LOW BP AND HR 45 BP 89/60 WILL MONITOR
[2022-02-19] MEDS: FERROUS SULFATE UDC 300 MG/5 ML UDC GT SCH (08:58)
[2022-02-19] MEDS: DOCUSATE SODIUM LIQ 100 MG/10 ML UDC GT SCH (08:58)
[2022-02-19] MEDS: FLUDROCORTISONE 0.1 MG TABLET GT SCH (08:58)
[2022-02-19] MEDS: PANTOPRAZOLE 40 MG/PACK PACK GT SCH (08:58)
[2022-02-19] MEDS: CHLORHEXIDINE GLUCONATE 15 ML UDC MM SCH ×2 (08:58→16:47)
[2022-02-19] MEDS: CHOLECALCIFEROL 1,000 UNIT TABLET (VIT D3) GT SCH (08:58)
[2022-02-19] MEDS: HYDROCORTISONE SOD SUCCINATE 100 MG/2 ML VIAL IV SCH ×2 (08:58→16:47)
[2022-02-19] MEDS: LEVETIRACETAM SOL (5 ML) 100 MG/ML UDC GT SCH ×2 (08:58→21:04)
[2022-02-19] MEDS: MULTIVIT W/MINERALS 1 TAB TABLET GT SCH (08:58)
[2022-02-19] MEDS: DOXYCYCLINE HYCLATE (100 MG) 100 MG TABLET PO SCH ×2 (08:58→21:04)
[2022-02-19] MEDS: COLISTIMETHATE SODIUM 75 MG in IV NS 0.9% 50 ML IV SCH ×2 (08:59→21:04)
--- NOTE | 2022-02-19 09:56 | NUR ---
SPOKE WITH RN. PT TOO UNSTABLE TO COME DOWN FOR CT HEAD.
--- NOTE | 2022-02-19 10:21 | NUR ---
INTERIOR DESIGN COORDINATOR NOTE MOUTH CARE DONE ,RECHECKED CONCHITA 101/51 WILL MONITOR HR STILL 45
--- NOTE | 2022-02-19 10:35 | NUR ---
SOLUTIONS ENGINEER NOTE CALLED TO BRE RN GUEST RELATIONS COORDINATOR GUEST RELATIONS COORDINATOR NOTIFIED KELLY BP EARLIER BP 89/60 AND HR NOW 42 ORDERED BOLUS 500 ML NS IV , NOT STABLE TO TRANSFER FOR CT HEAD
[2022-02-19] MEDS ORDERED: IV NS 0.9% 500 ML IV ONE (10:40)
--- NOTE | 2022-02-19 10:56 | NUR ---
BLOW MOLDING MACHINE OPERATOR NOTE EEN BY DR FLORIAN HEEL BUILDER NOTIFIED THAT HR 42-45 WILL BOLUS INFUSION, STATED ITS OK CONT TO INFUSE, WILL MONITOR
[2022-02-19] MEDS: MIDODRINE HCL (5MG) 5 MG TABLET PO SCH ×2 (12:26→16:49)
--- NOTE | 2022-02-19 12:47 | NUR ---
DIAMOND SETTER NOTE SEEN BY BRE MURPHY GUITAR MAKER HAND NOTIFIED THAT HR 45-41 , BOLUS GIVEN AFTER BOLUS, BP 104/66 ALSO NOTIFIED THAT SINCE MORNING URINE OUT PUT 50 ML , NO BLADER DISTENSION NOTED, STATED TO MONITOR AND MIDODRINE VIA G TUBE ORDERED ,WILL MONITOR
--- NOTE | 2022-02-19 15:30 | NUR ---
GLASS OR MIRROR INSPECTOR NOTE HR STILL 42-45 SB ON TELE MONITOR, BRE MURPHY BELLPERSON NOTIFIED NO NEW ORDER GIVEN AT THIS TIME, AWARE ALSO THAT UNABLE TO TAKE TO CT HEAD DUE TO HR 42 AND TENDENCY LOW BP STATED THAT ITS OK FOR NOW , ALL NEEDS ATTENDED TUNE REPOSITION Q 2 HOUR , CONT ON G TUBE FEEDING NO RESIDUAL NOTED , ELEVATE BOTH UPPER AND LOWER EXTREMITIES ON PILLOW TOLERATED DUE TO EDEMA , FREQUENT TRACH AND ORAL SUCTION DONE
--- NOTE | 2022-02-19 15:53 | NUR ---
WAREHOUSE PICKER NOTE RT AT BEDSIDE , TRACH CARE DONE ,SUCTION DONE ,KEEP HOB ELEVATED, CONT ON G TUBE FEEDING ORDERED , WILL MONITOR
--- NOTE | 2022-02-19 18:07 | NUR ---
manager telemarketing note noted urine output throughout morning shift 12 hours 250ml yellow sue color , check Van cath, no leaking , checked with bladder scanner for urine retention noted 93 m only ,l abdomen soft nondistended, will monitor closely
--- NOTE | 2022-02-19 18:22 | NUR ---
STEWARD/STEWARDESS THIRD NOTE PATIENT IN BED ,OBTUNDED ,WITH TRACH TO VENT SETTING ORDERED NOT FOLLOW ANY COMMAND, TRACH AND ORAL SUCTION DONE WITH MOD AMT WHITE CLEAR SECRETION NOTED , KEEP HOB ELEVATED AT ALL TIME, WITH G TUBE FEEDING ORDERED TOLERATED WELL ON TELE MONITOR STILL SB HR 43-45 JONY MURPHY TICKET PULLER NOTIFIED ABOUT THIS , WITH HIRSCH CATH TO GRAVITY WITH YELLOW HAL COLOR , KEEP BOTH UPPER AND LOWER EXTREMITIES ON PILLOW TOLERATED , URINE OUTPUT 250 ML ,ABDOMEN NOT DISTENDED AND SOFT TO TOUCH CALLED TO BRE MURPHY TICKET PULLER , GAVE ORDER TO START NS 100 ML PER HOUR 1 BAG , ORDER CARRIED OUT
[2022-02-19] MEDS ORDERED: IV NS 0.9% 1,000 ML IV ONE (18:30)
--- NOTE | 2022-02-19 21:56 | NUR ---
CAKE MAKER OPENING NOTE PT RECEIVED IN BED, OBTUNDED, NON-VERBAL, OPENS EYES. PT NOTED TO HAVE SHILEY #6, AC 18, TV 450, FIO2 30%, PEEP 5 WITH CURRENT O2SAT OF 100%; NO S/S OF RESP DISTRESS, NO SOB OR COUGH, NON-LABORED AND EQUAL BREATHING; APPEARS COMFORTABLE OVERALL AND IN NO APPARENT DISTRESS. PT ATTACHED TO EXTERNAL MONITOR, SB WITH HR OF 51. PT NOTED TO HAVE HIRSCH THAT IS DRAINING URINE THAT IS REDDISH-ORANGE IN COLOR. GTD C/D/I WITH JEVITY RUNNING AT 55 ML/HR; NO RESIDUAL NOTED; WILL TURN OFF FEEDING ON 02/20 AT 0500. MAULIK MIDLINE INTACT AND PATENT, FLUSHES EASILY WITH NO RESISTANCE; NS INFUSING AT 100 ML/HR. BED IN LOWEST POSITION, CALL LIGHT WITHIN REACH, SIDE RAILS UP X3. WILL CONTINUE TO MONITOR THROUGHOUT THE NIGHT.
--- NOTE | 2022-02-19 22:00 | NUR ---
RN NOTE PT NOTED TO HAVE RECTAL TEMPERATURE OF 94.5F. ALEKS CHOW APPLIED. WILL MONITOR FOR EFFECTIVENESS.
[2022-02-20] VITALS: BP 98/64
[2022-02-20] MEDS: ALBUTEROL FS 2.5 MG/0.5 ML VIAL.NEB IH SCH ×4 (01:28→20:13)
[2022-02-20] MEDS: IPRATROPIUM NEB FS 0.5 MG/2.5 ML AMPUL.NEB NEB SCH ×4 (01:28→20:13)
[2022-02-20 04:00] VITALS: BP 104/75
[2022-02-20 06:13] LABS: BASOPHILS # (AUTO) 0.1 K/uL (0.0-0.2); BASOPHILS % (AUTO) 1.4 % (0.0-2.0); EOSINOPHILS % (AUTO) 1.3 % (0.0-6.0); HEMATOCRIT 24 % (33-45); HEMOGLOBIN 7.9 g/dL (11.5-14.8); LYMPHOCYTES # (AUTO) 1.3 K/uL (0.8-4.8); LYMPHOCYTES % (AUTO) 14.7 % (20.0-44.0); MEAN CORPUSCULAR HGB CONC 32 g/dl (31.0-36.0); MEAN CORPUSCULAR VOLUME 93 fL (82-100); MONOCYTES # (AUTO) 0.6 K/uL (0.1-1.30); MONOCYTES % (AUTO) 6.8 % (2.0-12.0); NEUTROPHILS # (AUTO) 6.5 K/uL (1.8-8.9); NEUTROPHILS % (AUTO) 75.8 % (43.0-81.0); PLATELET COUNT (AUTO) 342 K/uL (150-450); RED BLOOD CELL COUNT(AUTO) 2.64 MIL/uL (4.0-5.2); WHITE BLOOD COUNT (AUTO) 8.6 K/uL (4.3-11.0)
[2022-02-20 06:30] LABS: CALCIUM, SERUM 8.8 mg/dL (8.5-10.1); CREATININE 0.4 mg/dL (0.6-1.3); POTASSIUM 3.9 mmol/L (3.5-5.1)
--- NOTE | 2022-02-20 06:56 | NUR ---
YARDAGE CONTROL OPERATOR FORMING CLOSING NOTE PT REMAINS IN BED, OBTUNDED, NON-VERBAL, OPENS EYES. PT NOTED TO HAVE SHILEY #6, AC 18, TV 450, FIO2 30%, PEEP 5; TOLERATED VENT SETTINGS WELL; O2SAT RANGING FRMO 98%- 100%; NO S/S OF RESP DISTRESS, NO SOB OR COUGH, NON-LABORED AND EQUAL BREATHING; APPEARS COMFORTABLE OVERALL AND IN NO APPARENT DISTRESS. PT ATTACHED TO EXTERNAL MONITOR, SR WITH CURRENT HR OF 92. HIRSCH INTACT AND PATENT, NO SIGNS OF LEAKING, DRAINING URINE THAT IS REDDISH-ORANGE IN COLOR. GTD C/D/I; GTF TURNED OFF AT 0500. MAULIK MIDLINE INTACT AND PATENT, FLUSHES EASILY WITH NO RESISTANCE. ALL DUE MEDS ADMINISTERED DURING THE NIGHT. BED IN LOWEST POSITION, CALL LIGHT WITHIN REACH, SIDE RAILS UP X3. WILL ENDORSE TO DAYSHIFT NURSE TO CONTINUE CARE.
--- NOTE | 2022-02-20 07:35 | NUR ---
SUPERVISOR PACKING OPENING NOTES: RECEIVED PATIENT IN BED, OBTUNDED, BUT OPENS HER EYES WHEN CALLED HER NAME AND RESPONDS TO TACTILE STIMULI. PATIENT IS ON MECHANICAL VENT WITH SHILEY # 8, WITH VENT SETTINGS FOLLOWS: AC 18, TV 450, FI02 40% PEEP OF 5 WITH OXYGEN SATURATION OF 98%. PATIENT IN NO RESPIRATORY DISTRESS NOTED AT THIS TIME. ON SR ON TELE MONITOR WITH HR OF 82. PATIENT HAS IV ACCESS ON RIGHT UPPER ARM MIDLINE, SALINE LOCK, PATENT AND FLUSHES WELL. HIRSCH CATHETER INTACT, DRAINING WITH DARK YELLOW COLORED URINE, NO HEMATURIA AND NO SEDIMENTATION NOTED. G-TUBE INTACT, NO RESIDUAL NOTED, G-TUBE IN PLACE AND FEEDING IS PUT ON HOLD PER MD'S ORDER, WILL RESUME FEEDING AT 0900 TODAY. BED LOCKED AND IN LOWEST POSITION, CALL LIGHT WITHIN REACH, SIDE RAILS UP X3. WILL CONTINUE TO MONITOR THROUGHOUT THE SHIFT..
[2022-02-20 08:00] VITALS: BP 135/75
[2022-02-20] MEDS: MIDODRINE HCL (5MG) 5 MG TABLET PO SCH ×4 (09:00→16:53)
[2022-02-20] MEDS: CHLORHEXIDINE GLUCONATE 15 ML UDC MM SCH ×2 (09:39→16:53)
[2022-02-20] MEDS: FERROUS SULFATE UDC 300 MG/5 ML UDC GT SCH (09:39)
[2022-02-20] MEDS: DOCUSATE SODIUM LIQ 100 MG/10 ML UDC GT SCH (09:39)
[2022-02-20] MEDS: DOXYCYCLINE HYCLATE (100 MG) 100 MG TABLET PO SCH ×2 (09:40→20:38)
[2022-02-20] MEDS: LEVETIRACETAM SOL (5 ML) 100 MG/ML UDC GT SCH ×2 (09:40→20:37)
[2022-02-20] MEDS: MULTIVIT W/MINERALS 1 TAB TABLET GT SCH (09:40)
[2022-02-20] MEDS: PANTOPRAZOLE 40 MG/PACK PACK GT SCH (09:40)
[2022-02-20] MEDS: CHOLECALCIFEROL 1,000 UNIT TABLET (VIT D3) GT SCH (09:41)
[2022-02-20] MEDS: HYDROCORTISONE SOD SUCCINATE 100 MG/2 ML VIAL IV SCH ×2 (09:41→16:53)
[2022-02-20] MEDS: FLUDROCORTISONE 0.1 MG TABLET GT SCH (09:41)
[2022-02-20] MEDS: COLISTIMETHATE SODIUM 75 MG in IV NS 0.9% 50 ML IV SCH ×3 (09:43→20:38)
[2022-02-20] MEDS: ACETAMINOPHEN 650 MG/20.3 ML UDC GT PRN (09:57)
[2022-02-20] MEDS ORDERED: EPOETIN ALFA (4000 UNIT) 4,000 UNIT/ML VIAL SQ ONE (10:00)
[2022-02-20] MEDS ORDERED: PANT40SU2 GT (11:35)
[2022-02-20] MEDS ORDERED: LEVE100S GT (11:35)
[2022-02-20] MEDS ORDERED: IPRA0.2S9 NEB ×2 (11:35)
[2022-02-20] MEDS ORDERED: LACT-209 GT (11:35)
[2022-02-20] MEDS ORDERED: FLUD0.1T3 GT (11:35)
[2022-02-20] MEDS ORDERED: MIDO5TAB4 PO (11:35)
[2022-02-20] MEDS ORDERED: AMOX-430 PO (11:59)
[2022-02-20 12:00] VITALS: BP 97/66
[2022-02-20] MEDS: JEVITY 1.2 CAL 1,000 ML BOTTLE GT SCH (13:13)
[2022-02-20 16:00] VITALS: BP 94/58
--- NOTE | 2022-02-20 18:36 | NUR ---
NOTIFIED DR. SANTIZO THAT PATIENT'S HR HAS BEEN IN THE HIGH 40'S AND IT WAS 47 AT THIS TIME. MD ORDERED TO HOLD DISCHARGE. PATIENT IN NO ACUTE DISTRESS.
--- NOTE | 2022-02-20 18:52 | NUR ---
TRUCK MECHANIC APPRENTICE CLOSING NOTES: PATIENT IN BED, OBTUNDED, BUT RESPONDS TO SOUND AND TACTILE STIMULI. PATIENT IS ON MECHANICAL VENT WITH SHILEY # 8, WITH VENT SETTINGS FOLLOWS: AC 18, TV 450, FI02 40% PEEP OF 5 WITH OXYGEN SATURATION OF 98%. NO SOB NOTED AT THIS TIME, BREATHING EVEN AND UNLABORED. ON SB WITH HR OF 45 ON TELE MONITOR. PATIENT HAS SALINE LOCK ON RIGHT UPPER ARM MIDLINE, PATENT AND FLUSHES WELL, NO S/S INFILTRATION NOTED. HIRSCH CATHETER INTACT, EMPTIED 575 OF YELLOW COLORED URINE, NO HEMATURIA AND NO SEDIMENTATION NOTED. G-TUBE INTACT, IN PLACE AND NO RESIDUAL NOTED, WITH JEVITY RUNNING @ 55 ML/HR. BED LOCKED AND IN LOWEST POSITION. HOB KEPT ELEVATED. ALL SAFETY MEASURES IMPLEMENTED. WILL ENDORSE TO NEXT SHIFT NURSE FOR CONTINUITY OF CARE
--- NOTE | 2022-02-20 19:30 | NUR ---
FATS AND OILS LOADER OPENING NOTE RECEIVED REPORT FROM JEFFREY MEDEIROS FOR MARVA. PT IN BED SLEEPING, OBTUNDED. ON [facility] VENT SHILEY #8 WITH VENT SETTINGS TOLERATING WELL: AC 18, TV 450, FIO2 40%, PEEP 5. CURRENT O2 SAT AT 100%; NO S/SX OF RESPI DISTRESS NOTED AT THIS TIME, NO SOB OR COUGH, NON-LABORED AND EQUAL BREATHING. TELE MONITOR READS SB WITH HR >45 BPM. MD MADE AWARE PER JEFFREY MEDEIROS. D/C ON HOLD FOR NOW. MAULIK MIDLINE INTACT AND PATENT, FLUSHES EASILY WITH NO RESISTANCE, INFUSING NS TKO. GTF IN PLACE RUNNING JEVITY AT 55 ML/HR X 20 HRS; <10 ML RESIDUAL NOTED. HIRSCH CATHETER IN PLACE, DRAINING DARK YELLOW-COLORED URINE. ALL SAFETY MEASURES IN PLACE: BED IN LOWEST POSITION, CALL LIGHT WITHIN REACH, SIDE RAILS UP X3. WILL CONTINUE TO MONITOR THROUGHOUT THE NIGHT.
[2022-02-20] MEDS: IV NS 0.9% 250 ML IV PRN (19:52)
[2022-02-20 20:00] VITALS: BP 121/71
[2022-02-21] VITALS: BP 119/69
[2022-02-21] MEDS: IPRATROPIUM NEB FS 0.5 MG/2.5 ML AMPUL.NEB NEB SCH ×4 (02:41→20:14)
[2022-02-21] MEDS: ALBUTEROL FS 2.5 MG/0.5 ML VIAL.NEB IH SCH ×4 (02:41→20:13)
[2022-02-21 04:00] VITALS: BP 110/87
--- NOTE | 2022-02-21 06:32 | NUR ---
RN CLOSING NOTE NO SIGNIFICANT CHANGE T/O THE NIGHT. PT'S HR HAS STABILIZED AND IS NOW >50 BPM. ALL OTHER VS STABLE. TELE MONITOR READS SB. O2 SAT 100%. ALL DUE MEDS GIVEN. NEEDS ATTENDED TO. GTF ON HOLD FROM 0500 TO 0900. WILL ENDORSE TO AM SHIFT NURSE FOR MARVA.
[2022-02-21 06:52] LABS: BASOPHILS % (AUTO) 0.3 % (0.0-2.0); EOSINOPHILS % (AUTO) 1.6 % (0.0-6.0); HEMATOCRIT 26 % (33-45); HEMOGLOBIN 8.2 g/dL (11.5-14.8); LYMPHOCYTES # (AUTO) 1.5 K/uL (0.8-4.8); LYMPHOCYTES % (AUTO) 15.8 % (20.0-44.0); MEAN CORPUSCULAR HGB CONC 32 g/dl (31.0-36.0); MEAN CORPUSCULAR VOLUME 94 fL (82-100); MONOCYTES # (AUTO) 0.8 K/uL (0.1-1.30); MONOCYTES % (AUTO) 8.1 % (2.0-12.0); NEUTROPHILS # (AUTO) 6.9 K/uL (1.8-8.9); NEUTROPHILS % (AUTO) 74.2 % (43.0-81.0); PLATELET COUNT (AUTO) 346 K/uL (150-450); RED BLOOD CELL COUNT(AUTO) 2.73 MIL/uL (4.0-5.2); WHITE BLOOD COUNT (AUTO) 9.3 K/uL (4.3-11.0)
[2022-02-21 07:01] LABS: CALCIUM, SERUM 8.9 mg/dL (8.5-10.1); CREATININE 0.4 mg/dL (0.6-1.3); POTASSIUM 3.4 mmol/L (3.5-5.1)
--- NOTE | 2022-02-21 07:30 | NUR ---
INSPECTOR BALANCE TRUING AM NOTE PT IN BED, OBTUNDED, WITH SH 8 TRACH TO MECHANICAL VENT, SETTING ORDERED, AC 18 TV 450 FIO2 450 PEEP 5, RESPIRATION EVEN AND UNLABORED, CURRENT O2 SAT AT 100%; NO S/SX OF RESPI DISTRESS NOTED AT THIS TIME, NO SOB OR COUGH, SB HR 48 ON MONITOR, MD AWARE, MAULIK MIDLINE INTACT AND PATENT, FLUSHES EASILY WITH NO RESISTANCE, INFUSING NS TKO. GTF IN PLACE, CHECKED FOR PLACEMENT. RUNNING JEVITY AT 55 ML/HR X 20 HRS; OFF 0500 ON 0900. O RESIDUAL. HIRSCH CATHETER IN PLACE, DRAINING DARK YELLOW-COLORED URINE. ALL SAFETY MEASURES IN PLACE: BED IN LOWEST POSITION, CALL LIGHT WITHIN REACH, SIDE RAILS UP X3. HOB UP.WILL CONTINUE TO MONITOR FOR POSSIBLE DC TODAY.
[2022-02-21 08:00] VITALS: BP 124/78
[2022-02-21] MEDS: HYDROCORTISONE SOD SUCCINATE 100 MG/2 ML VIAL IV SCH ×2 (09:13→17:59)
[2022-02-21] MEDS: DOCUSATE SODIUM LIQ 100 MG/10 ML UDC GT SCH (09:14)
[2022-02-21] MEDS: FERROUS SULFATE UDC 300 MG/5 ML UDC GT SCH (09:14)
[2022-02-21] MEDS: MULTIVIT W/MINERALS 1 TAB TABLET GT SCH (09:14)
[2022-02-21] MEDS: LEVETIRACETAM SOL (5 ML) 100 MG/ML UDC GT SCH ×2 (09:14→21:20)
[2022-02-21] MEDS: CHLORHEXIDINE GLUCONATE 15 ML UDC MM SCH ×2 (09:14→17:59)
[2022-02-21] MEDS: PANTOPRAZOLE 40 MG/PACK PACK GT SCH (09:14)
[2022-02-21] MEDS: CHOLECALCIFEROL 1,000 UNIT TABLET (VIT D3) GT SCH (09:15)
[2022-02-21] MEDS: DOXYCYCLINE HYCLATE (100 MG) 100 MG TABLET PO SCH ×2 (09:15→21:20)
[2022-02-21] MEDS: MIDODRINE HCL (5MG) 5 MG TABLET PO SCH ×3 (09:15→17:59)
[2022-02-21] MEDS: FLUDROCORTISONE 0.1 MG TABLET GT SCH (09:15)
[2022-02-21] MEDS: COLISTIMETHATE SODIUM 75 MG in IV NS 0.9% 50 ML IV SCH ×2 (09:18→21:21)
--- NOTE | 2022-02-21 09:30 | NUR ---
RN NOTES DUE MEDS GIVEN
[2022-02-21] MEDS ORDERED: POTASSIUM CHLORIDE 20 MEQ POWDER PACKET GT SCH (10:00)
[2022-02-21 12:00] VITALS: BP 120/72
[2022-02-21 16:00] VITALS: BP 115/77
--- NOTE | 2022-02-21 16:50 | NUR ---
follow up ambulance spoke with leland byrne from insurance will call floor regarding elin forman aware. Addendum: 02/21/22 at 1840 by ESPINOZA ROSALES RN ADDENDUM: PETER CAMACHO
--- NOTE | 2022-02-21 18:56 | NUR ---
RN NOTES ALL NEEDS MET AT HIS TIME. PATIENT RESTING COMFORTABLY. NOT IN ANY DISTRESS. STABLE. WILL ENDORSE TO NEXT SHIFT FOR MARVA.
--- NOTE | 2022-02-21 19:40 | NUR ---
PORCELAIN ENAMELING SUPERVISOR NOTE, PT IN BED, OBTUNDED, ON MECHANICAL VENTILATOR TOLERATED SETTINGS WELL, NO SOB/ACUTE DISTRESS NOTED, O2 SAT AT 100%; NO S/SX OF RESPI DISTRESS NOTED AT THIS TIME, MAULIK MIDLINE INTACT AND PATENT, GTF IN PLACE, NO RESIDUAL NOTED, RUNNING JEVITY AT [address], DRAINING DARK YELLOW-COLORED URINE BY GRAVITY, ALL SAFETY MEASURES MAINTAINED, BED LOCKED AND IN LOWEST POSITION, CALL LIGHT WITHIN REACH, SIDE RAILS UP X3, WILL CONTINUE TO MONITOR CLOSELY.
[2022-02-21 20:00] VITALS: BP 123/80
--- NOTE | 2022-02-21 21:57 | NUR ---
PATIENT CONTINUE SITTING ON EDGE OF THE BED, EDUCATION PROVIDED, AND REMAINED HER THE IMPORTANCE TO LIE DOWN ON THE BED, AND PREVENT FALL AND INJURIES, NOTED PATIENT FALLING ASLEEP, STILL REFUSED, WILL CONTINUE TO MONITOR CLOSELY. Addendum: 02/22/22 at 0619 by VITALY ARNOLD RN WRONG PATIENT
[2022-02-22] VITALS: BP 128/77
[2022-02-22] MEDS: IPRATROPIUM NEB FS 0.5 MG/2.5 ML AMPUL.NEB NEB SCH ×2 (00:47→08:17)
[2022-02-22] MEDS: ALBUTEROL FS 2.5 MG/0.5 ML VIAL.NEB IH SCH ×2 (00:47→08:17)
[2022-02-22] MEDS: JEVITY 1.2 CAL 1,000 ML BOTTLE GT SCH (01:31)
[2022-02-22 04:00] VITALS: BP 112/82
[2022-02-22 07:00] LABS: CALCIUM, SERUM 8.9 mg/dL (8.5-10.1); CREATININE 0.3 mg/dL (0.6-1.3); POTASSIUM 3.8 mmol/L (3.5-5.1)
--- NOTE | 2022-02-22 07:20 | NUR ---
COMMISSARY PRODUCTION SUPERVISOR OPENING NOTE RECEIVED . PT IN BED SLEEPING, OBTUNDED. ON [facility] VENT SHILEY #8 WITH VENT SETTINGS TOLERATING WELL: AC 18, TV 450, FIO2 40%, PEEP 5. CURRENT O2 SAT AT 100%; NO S/SX OF RESPI DISTRESS NOTED AT THIS TIME, NO SOB OR COUGH, NON-LABORED AND EQUAL BREATHING. TELE MONITOR READS SB WITH HR >44 BPM. D/C ON HOLD FOR NOW. MAULIK MIDLINE INTACT AND PATENT, FLUSHES EASILY WITH NO RESISTANCE, INFUSING NS TKO. GTF IN PLACE RUNNING JEVITY AT 55 ML/HR X 20 HRS; <10 ML RESIDUAL NOTED. HIRSCH CATHETER IN PLACE, DRAINING DARK YELLOW-COLORED URINE. ALL SAFETY MEASURES IN PLACE: BED IN LOWEST POSITION, CALL LIGHT WITHIN REACH, SIDE RAILS UP X3. WILL CONTINUE TO MONITOR THROUGHOUT THE SHIFT .
[2022-02-22 08:04] LABS: BASOPHILS # (AUTO) 0.2 K/uL (0.0-0.2); BASOPHILS % (AUTO) 2.3 % (0.0-2.0); EOSINOPHILS % (AUTO) 3.1 % (0.0-6.0); HEMATOCRIT 28 % (33-45); HEMOGLOBIN 8.7 g/dL (11.5-14.8); LYMPHOCYTES # (AUTO) 1.7 K/uL (0.8-4.8); LYMPHOCYTES % (AUTO) 21.9 % (20.0-44.0); MEAN CORPUSCULAR HGB CONC 31 g/dl (31.0-36.0); MEAN CORPUSCULAR VOLUME 95 fL (82-100); MONOCYTES # (AUTO) 0.6 K/uL (0.1-1.30); MONOCYTES % (AUTO) 8.3 % (2.0-12.0); NEUTROPHILS # (AUTO) 4.9 K/uL (1.8-8.9); NEUTROPHILS % (AUTO) 64.4 % (43.0-81.0); PLATELET COUNT (AUTO) 358 K/uL (150-450); RED BLOOD CELL COUNT(AUTO) 2.92 MIL/uL (4.0-5.2); WHITE BLOOD COUNT (AUTO) 7.6 K/uL (4.3-11.0)
[2022-02-22] MEDS: PANTOPRAZOLE 40 MG/PACK PACK GT SCH (08:52)
[2022-02-22] MEDS: FERROUS SULFATE UDC 300 MG/5 ML UDC GT SCH (08:53)
[2022-02-22] MEDS: CHLORHEXIDINE GLUCONATE 15 ML UDC MM SCH (08:53)
[2022-02-22] MEDS: LEVETIRACETAM SOL (5 ML) 100 MG/ML UDC GT SCH (08:53)
[2022-02-22] MEDS: DOCUSATE SODIUM LIQ 100 MG/10 ML UDC GT SCH (08:53)
[2022-02-22] MEDS: CHOLECALCIFEROL 1,000 UNIT TABLET (VIT D3) GT SCH (08:54)
[2022-02-22] MEDS: FLUDROCORTISONE 0.1 MG TABLET GT SCH (08:54)
[2022-02-22] MEDS: DOXYCYCLINE HYCLATE (100 MG) 100 MG TABLET PO SCH (08:54)
[2022-02-22] MEDS: MULTIVIT W/MINERALS 1 TAB TABLET GT SCH (08:54)
[2022-02-22] MEDS: MIDODRINE HCL (5MG) 5 MG TABLET PO SCH (08:55)
[2022-02-22] MEDS: HYDROCORTISONE SOD SUCCINATE 100 MG/2 ML VIAL IV SCH (08:56)
[2022-02-22] MEDS: COLISTIMETHATE SODIUM 75 MG in IV NS 0.9% 50 ML IV SCH (10:08)
[2022-02-22 10:58] VITALS: BP 120/73
--- NOTE | 2022-02-22 10:59 | NUR ---
PATIENT DISCHARGE ,REPORT GIVEN TO CUATE MURPHY.
--- NOTE | 2022-02-22 11:45 | NUR ---
TOOL INSPECTORDELPHI PROGRAMMER NOTES PATIENT IS WITH ORDER FOR DISCHARGE TO [facility] TODAY , ALL DUE MEDS WAS GIVEN ,[facility] AMBULANCE WITH RT TO RN CLINICAL RESEARCH THE PATIENT AND CAME IN LIKE AROUND 1115 , REPORT GIVEN TO THEM AND MYKE MCINTYRE AWARE FOR THE COMING TRANSFER OF THE RESIDENT , PATIENT LEFT WITH HR OF 46 IN A STABLE CONDITION , CLEARED BY BARGEMAN TO DISCHARGE TO [facility] AND V/S WITHIN NORMAL LIMITS AND PATIENT LEFT I A STABEL CONDITION
== END 2022-02-22 11:03 | DRG 815 ==
LOC: ER 09:46 → ICU 14:37 → TELE1 02-14 17:46 → TELE-TD 02-14 18:16 → TELE1 02-18 09:10
PROVIDERS: ADMIT Nurse Practitioner Acute Care; ATTEND Nurse Practitioner Acute Care
PROC: 5A1955Z Respiratory Ventilation, Greater than 96 Consecutive Hours (ICD-10-PCS; principal; 2022-02-11)
PROC: 30233N1 Transfusion of Nonautologous Red Blood Cells into Peripheral Vein, Percutaneous Approach (ICD-10-PCS; 2022-02-11)
PROC: 05HD33Z Insertion of Infusion Device into Right Cephalic Vein, Percutaneous Approach (ICD-10-PCS; 2022-02-11)
DX: T68.XXXA Hypothermia, initial encounter (principal); J96.21 Acute and chronic respiratory failure with hypoxia; A41.9 Sepsis, unspecified organism; G93.40 Encephalopathy, unspecified; J15.9 Unspecified bacterial pneumonia; R57.1 Hypovolemic shock; R65.21 Severe sepsis with septic shock; D68.59 Other primary thrombophilia; D69.6 Thrombocytopenia, unspecified; Z93.0 Tracheostomy status; Z20.822 Contact with and (suspected) exposure to COVID-19; G40.909 Epilepsy, unspecified, not intractable, without status epilepticus; Z93.1 Gastrostomy status; Z87.820 Personal history of traumatic brain injury; R13.10 Dysphagia, unspecified; I10 Essential (primary) hypertension; Z79.01 Long term (current) use of anticoagulants; Z79.51 Long term (current) use of inhaled steroids; Z79.899 Other long term (current) drug therapy; D64.9 Anemia, unspecified; E87.5 Hyperkalemia; E03.9 Hypothyroidism, unspecified; R74.01 Elevation of levels of liver transaminase levels; Z74.01 Bed confinement status; Y95 Nosocomial condition
CPT/HCPCS: 31720; 36410; 36415; 36600; 71045-TC; 80048-TC; 80053-TC; 80061-TC; 80076-TC; 80202-TC; 82803-TC; 82962-TC; 83540-TC; 83605-TC; 83735-TC; 84100-TC; 84439-TC; 84443-TC; 84484-TC; 84703-TC; 85025-TC; 85730-TC; 86850-TC; 87040-TC; 87070-TC; 87081-TC; 87086-TC; 87186-TC; 93307-TC; 94002-TC; 94003-TC; 94640-TC; 94760-TC; 94762-TC; 94799-TC; A4217; C9113; C9803; G0378; J0456; J0770; J0885; J1200; J1720; J1953; J2060; J2185; J2405; J2543; J3370; J3475; J7030; J7040; J7050; J7060; J7120; P9016

== ENCOUNTER 2022-03-01 20:07 | Inpatient (IN) | payer BC ==
[~2022-03-01] VITALS: Ht 172.7 cm; Wt 73.0 kg
[~2022-03-01 20:07] MED LIST changes: +ACET325T53 GT; +AMOX-430 PO; +BISA10SU11 RC; -CHOL100062 GT; +CHOL200013 GT; +DOCU-141 GT; +ENOX40DI SQ; +FLUD0.1T3 GT; +IPRA0.2S9 NEB; +LACT-209 GT; -METO25TA6 GT; +MIDO5TAB4 PO; +MULT-439 GT; +NA P133E RC; -NUTR1PAC14 GT; +PANT40SU2 GT
--- NOTE | 2022-03-01 22:25 | NUR ---
RN NOTES ADMITTED 46 Y/O FEMALE PATIENT DIRECT ADMIT FROM [facility] VIA [facility] WITH 2 EMT AND RT. SAFELY TRANSFER PATIENT TO BED. RT AT BEDSIDE WITH TRACH INTACT CONNECTED TO MV AC 14, TV 450 FIO2 40% PEEP 5 TOLERATING WELL NO SOB NOTED AT THIS TIME. BODY ASSESSMENT AND PICTURE TAKEN. VITAL SIGN TAKEN AND RECORDED. WITH IV ACCESS AT R UA PICC LINE 3 LUMENS PATENT FLUSHES WELL. WITH HIRSCH PATENT CONNECTED TO URINE BAG DRAINING YELLOWISH URINE. VITAL SIGNS TAKEN AND RECORDED. BP IS 82/45. TEMP 95.1 RECTALLY. WILL CONTINUE TO CLOSELY MONITOR THE PATIENT
--- NOTE | 2022-03-01 22:34 | NUR ---
RT NOTE Pt rec'd trached via [place] sz 8 dct on mech vent via ambulance. pt placed on mech vent on noted settings as charted. Pt shows no signs of resp distress or SOB. Trach is patent and secured. Pt sx'd for thick mod amt of pale yellow secretions. Alarms are set and audible. Ambu bag at bedside and emergency spare trach at bedside. Addendum: 03/01/22 at 2237 by MARLENE TORIBIO RT Amended: Links added.
--- NOTE | 2022-03-01 23:05 | NUR ---
RN NOTES BP CHECK MANUALLY 85/45. BRE MCHUGH MADE AWARE
--- NOTE | 2022-03-01 23:20 | NUR ---
0826 LOLITA Van made aware of patient's persistent blood pressure in the 80s taken with machine and manually with order to give NS 500ml bolus once now. Order noted.
[2022-03-01] MEDS ORDERED: IV NS 0.9% 500 ML BAG IV ONE (23:30)
[2022-03-02] VITALS: BP 90/65
[2022-03-02] MEDS ORDERED: ONDANSETRON HCL/PF 4 MG/2 ML VIAL IVP PRN
[2022-03-02] MEDS ORDERED: BISACODYL SUPP (10 MG) 10 MG/SUPP.RECT SUPP.RECT RC PRN
[2022-03-02] MEDS ORDERED: Z GUARD REMEDY 4 OZ OINT TP PRN
[2022-03-02] MEDS ORDERED: IPRATROPIUM NEB FS 0.5 MG/2.5 ML AMPUL.NEB NEB PRN
[2022-03-02] MEDS ORDERED: MAG HYDROX/AL HYDROX/SIMETH 30 ML UDC PO PRN
[2022-03-02] MEDS ORDERED: ACETAMINOPHEN 325 MG TABLET PO PRN ×2
[2022-03-02] MEDS ORDERED: JEVITY 1.2 CAL 1,000 ML BOTTLE GT SCH ×2
[2022-03-02] MEDS ORDERED: NA PHOS,M-B/NA PHOS,DI-BA 1 EA ENEMA RC PRN
[2022-03-02] MEDS ORDERED: MAGNESIUM HYDROXIDE 30 ML UDC PO PRN
--- NOTE | 2022-03-02 | NUR ---
RN NOTES BP CHECKED MANUALLY 90/60 MMHG. ON ALEKS HUGGER FOR TEM 95.1
[2022-03-02] MEDS: IV NS 0.9% 1,000 ML IV PRN ×2 (00:30→16:00)
[2022-03-02 04:00] VITALS: BP 100/65
--- NOTE | 2022-03-02 04:00 | NUR ---
RN NOTES PATIENT BP 89/52 MMHG. MANUAL BP DONE BP 100/65. CN IS AWARE TEMP 97.5 STILL ON ALEKS HUGGER. WILL CONTINUE TO MONITOR
[2022-03-02] MEDS: METOCLOPRAMIDE HCL 10 MG TABLET GT SCH ×3 (05:21→21:10)
[2022-03-02] MEDS: ACYCLOVIR IV 500 MG in IV D5W 100 ML IV SCH ×3 (05:22→21:10)
--- NOTE | 2022-03-02 06:47 | NUR ---
RN NOTES PATIENT REMAINS IN VENT TOLERATING WELL ON PRESCRIBE SETTINGS NO SOB NO DISTRESS NOTED. IV ACCESS R FA PICC LINE PATENT RUNNING NS@75 CC/HR. HIRSCH CATHETER CONNECTED TO URINE DRAINING YELLOWISH URINE OUTPUT. ALEKS HUGGER IN PLACE TEMP 97.5. MANUAL BLOOD PRESSURE USE TO TAKE BP.LATEST BP 100/65. NO EPISODE OF SEIZURE NOTED AT THIS TIME.ALL SAFETY MEASURES IN PLACE. HOB ELEVATED. CALL LIGHT WITHIN REACH. SEIZURE PRECAUTION IN PLACE AT ALL TIMES.WILL ENDORSE TO MORNING SHIFT FOR MARVA
[2022-03-02] MEDS ORDERED: ALBUTEROL FS 2.5 MG/0.5 ML VIAL.NEB NEB PRN (07:00)
[2022-03-02 07:13] LABS: BASOPHILS % (AUTO) 0.7 % (0.0-2.0); EOSINOPHILS % (AUTO) 6.9 % (0.0-6.0); HEMATOCRIT 30 % (33-45); HEMOGLOBIN 9.6 g/dL (11.5-14.8); LYMPHOCYTES # (AUTO) 0.8 K/uL (0.8-4.8); LYMPHOCYTES % (AUTO) 15.2 % (20.0-44.0); MEAN CORPUSCULAR HGB CONC 32 g/dl (31.0-36.0); MEAN CORPUSCULAR VOLUME 95 fL (82-100); MONOCYTES # (AUTO) 0.4 K/uL (0.1-1.30); MONOCYTES % (AUTO) 8.3 % (2.0-12.0); NEUTROPHILS # (AUTO) 3.7 K/uL (1.8-8.9); NEUTROPHILS % (AUTO) 68.9 % (43.0-81.0); PLATELET COUNT (AUTO) 263 K/uL (150-450); RED BLOOD CELL COUNT(AUTO) 3.15 MIL/uL (4.0-5.2); WHITE BLOOD COUNT (AUTO) 5.4 K/uL (4.3-11.0)
[2022-03-02] MEDS ORDERED: JEVITY 1.2 CAL 1,000 ML BOTTLE GT PRN (07:30)
--- NOTE | 2022-03-02 07:30 | NUR ---
RN OPENING NOTES PATIENT IN BED RESPONSIVE, REMAINS IN VENT TOLERATING WELL ON PRESCRIBE SETTINGS NO SOB NO DISTRESS NOTED. NO FACIAL GRIMACING NOTED. AIRBORNE AND CONTACT PRECAUTION CONTINUED. IV ACCESS R FA PICC LINE PATENT RUNNING NS@75 CC/HR. HIRSCH CATHETER CONNECTED TO URINE DRAINING YELLOWISH URINE OUTPUT. NO EPISODE OF SEIZURE NOTED AT THIS TIME. GT PATENT AND INTACT ON JEVITY 55ML/HR, TOLERATING WELL. ON TELE MONITORING WITH SR READING HR= 94. ALL SAFETY MEASURES IN PLACE. HOB ELEVATED. CALL LIGHT WITHIN REACH. SEIZURE PRECAUTION IN PLACE AT ALL TIMES. WILL CONTINUE TO MONITOR PATIENT.
[2022-03-02 07:51] LABS: CALCIUM, SERUM 8.3 mg/dL (8.5-10.1); CREATININE 0.4 mg/dL (0.6-1.3); MAGNESIUM 2.2 mg/dL (1.8-2.4); PHOSPHORUS 3.6 mg/dL (2.5-4.9); POTASSIUM 3.8 mmol/L (3.5-5.1)
[2022-03-02 08:00] VITALS: BP 89/49
[2022-03-02] MEDS: PANTOPRAZOLE 40 MG/PACK PACK GT SCH (08:08)
[2022-03-02] MEDS: CHLORHEXIDINE GLUCONATE 15 ML UDC MM SCH ×2 (08:08→16:25)
[2022-03-02] MEDS: CHOLECALCIFEROL 1,000 UNIT TABLET (VIT D3) GT SCH (08:09)
[2022-03-02] MEDS: MULTIVIT W/MINERALS 1 TAB TABLET GT SCH (08:09)
[2022-03-02] MEDS: FERROUS SULFATE UDC 300 MG/5 ML UDC GT SCH (08:10)
[2022-03-02] MEDS: LEVETIRACETAM SOL (5 ML) 100 MG/ML UDC GT SCH ×2 (08:10→21:10)
[2022-03-02] MEDS: ENOXAPARIN SODIUM 40 MG/0.4 ML DISP.SYRIN SQ SCH (08:12)
[2022-03-02] MEDS: ALBUTEROL FS 2.5 MG/0.5 ML VIAL.NEB IH SCH ×3 (08:14→19:51)
[2022-03-02] MEDS: IPRATROPIUM NEB FS 0.5 MG/2.5 ML AMPUL.NEB NEB SCH ×3 (08:15→19:51)
[2022-03-02] MEDS: FLUDROCORTISONE 0.1 MG TABLET GT SCH (08:30)
--- NOTE | 2022-03-02 08:30 | NUR ---
SHANT RN NOTE PER DIETARY CHANGED G TUBE FEEDING AT 75 ML PER HOUR X 20 HOURS
[2022-03-02] MEDS ORDERED: LEVETIRACETAM SOL (5 ML) 100 MG/ML UDC GT SCH (09:00)
[2022-03-02] MEDS ORDERED: MIDODRINE HCL (5MG) 5 MG TABLET PO SCH (09:00)
[2022-03-02] MEDS ORDERED: DOCUSATE SODIUM 100 MG CAPSULE PO SCH (09:00)
[2022-03-02] MEDS: DOCUSATE SODIUM LIQ 100 MG/10 ML UDC GT SCH (09:00)
--- NOTE | 2022-03-02 09:33 | NUR ---
SHANT RN NOTE DR ALONSO AT BEDSIDE AWARE OF RASHES AND T 99.8 WILL CONT TO MONITOR
--- NOTE | 2022-03-02 09:42 | NUR ---
RN NOTES DSS 100 LIQUID NOT GIVEN DUE TO DSS CAPSULE WAS ALREADY GIVEN.
--- NOTE | 2022-03-02 10:26 | NUR ---
SHANT RN NOTE DR LAURA RUST NOTIFIED KELLY BP EARLIER CHANGED MIDODRINE 10 MG TID , WILL F\U
--- NOTE | 2022-03-02 11:24 | NUR ---
RN NOTES MANUAL BP CHECK 92/59 HR=77, DR. RUST INFORMED. WILL CONTINUE TO MONITOR PATIENT.
--- NOTE | 2022-03-02 11:59 | NUR ---
SHANT RN NOTE PER DR LAURA RUST ORDER WILL GIVE BOLUS 250 ML NS WILL F\U BP 92/59
[2022-03-02 12:00] VITALS: BP 92/59
[2022-03-02] MEDS ORDERED: IV NS 0.9% 250 ML IV ONE (12:00)
[2022-03-02] MEDS: MIDODRINE HCL (5MG) 5 MG TABLET PO SCH ×2 (12:20→16:26)
--- NOTE | 2022-03-02 14:43 | NUR ---
RN NOTES @1440H RECHECK AT=283/57, WILL CONTINUE TO MONITOR.
--- NOTE | 2022-03-02 15:32 | NUR ---
RN NOTES SKIN BIOPSY OF THE LESION/RASHES DONE BY SEBASTIAN SANCHEZ DNP, WITH ORDER TO SEND THE SPECIMEN, CALLED THE LABORATORY PER, LABORATORY PERSONNEL DOESN'T NEED ORDER, JUST BRING THE SPECIMEN AND BRING A REQUISITION. WILL BRING THE SPECIMEN TO THE LABORATORY. Addendum: 03/02/22 at 1543 by JIM DUMONT RN HANDED SPECIMEN TO [facility] OF LABORATORY.
[2022-03-02 16:00] VITALS: BP 98/58
--- NOTE | 2022-03-02 16:09 | NUR ---
RN NOTES BLE AND BUE EDEMA NOTED, DR. LAURA CORTES INFORMED, NO NEW ORDER AT THIS TIME.
--- NOTE | 2022-03-02 17:22 | NUR ---
RN NOTES DUE MIDODRINE GIVEN, TOLERATED WELL. RECHECK BP AFTER 1 HR, BP=92/55. BLE ELEVATED, NOT IN DISTRESS. NO FACIAL GRIMACING NOTED. WILL CONTINUE TO MONITOR PATIENT.
--- NOTE | 2022-03-02 18:17 | NUR ---
RN CLOSING NOTES PATIENT IN BED, ALERT AND RESPONSIVE AND TACTILE STIMULI. PATIENT REMAINS IN VENT TOLERATING WELL ON PRESCRIBE SETTINGS NO SOB NO DISTRESS NOTED. IV ACCESS R FA PICC LINE PATENT AND INTACT, RUNNING NS@75 CC/HR. HIRSCH CATHETER CONNECTED TO URINE DRAINING 600CC YELLOWISH URINE OUTPUT. NO EPISODE OF SEIZURE NOTED AT THIS TIME. GT PATENT AND INTACT, ON JEVITY @75ML/HR, TOLERATING WELL, NO N/V/D NOTED. ON TELE MONITORING WITH SR READING HR= 69. ALL SAFETY MEASURES IN PLACE. HOB ELEVATED. BLE ELEVATED. CALL LIGHT WITHIN REACH. SEIZURE PRECAUTION IN PLACE AT ALL TIMES.WILL ENDORSE TO DIE CUTTER OPERATOR NURSE FOR MARVA
--- NOTE | 2022-03-02 19:20 | NUR ---
RN NOTES RECEIVED REPORT FROM MORNING RN. PATIENT IN BED OBTUNDED NO S/SX OF SOB, DISTRESS NOTED AT THIS TIME. WITH TRACHEOSTOMY PORTEX #8 INTACT CONNECTED TO MV WITH PRESCRIBED SETTING AC 14, TV 450, FIO2 40% PEEP5 TOLERATING WELL SATING 99%. WITH IV ACCESS AT R PICC LINE ON CONTINUOS FLUIDS OF NS@ 75CC/HR. WITH GT CONNECTED TO TF @ 75CC/HR TOLERATING WELL NO GASTRIC RESIDUAL NOTED AT THIS TIME. HIRSCH CATHETER CONNECTED TO URINE BAG DRAINING YELLOWISH URINE OUTPUT. ON AIRBORNE AND CONTACT ISOLATION MAINTAINED FOR POSSIBLE ZOSTER. ALL SAFETY MEASURES IN PLACE. HOB ELEVATED. CALL LIGHT WITHIN REACH. WILL CLOSELY MONITOR THE PATIENT
[2022-03-02 20:00] VITALS: BP 97/64
--- NOTE | 2022-03-02 20:30 | NUR ---
RN NOTES ALEKS HUGGER APPLIED DUE TO PATIENT TEMPERATURE IS 95. WI8LL CLOSELY MONITOR THE PATIENT
[2022-03-02] MEDS: JEVITY 1.2 CAL 1,000 ML BOTTLE GT PRN (21:20)
[2022-03-03] VITALS: BP 91/66
[2022-03-03] MEDS: ALBUTEROL FS 2.5 MG/0.5 ML VIAL.NEB IH SCH ×4 (01:23→19:59)
[2022-03-03] MEDS: IPRATROPIUM NEB FS 0.5 MG/2.5 ML AMPUL.NEB NEB SCH ×4 (01:23→19:59)
[2022-03-03 04:00] VITALS: BP 96/65
[2022-03-03] MEDS: ACYCLOVIR IV 500 MG in IV D5W 100 ML IV SCH ×3 (04:46→19:58)
[2022-03-03] MEDS: METOCLOPRAMIDE HCL 10 MG TABLET GT SCH ×3 (04:46→20:01)
--- NOTE | 2022-03-03 06:44 | NUR ---
RN NOTES PATIENT REMAINS IN VENT TOLERATING WELL ON PRESCRIBE SETTINGS NO SOB NO DISTRESS NOTED. IV ACCESS R FA PICC LINE PATENT RUNNING NS@75 CC/HR. HIRSCH CATHETER CONNECTED TO URINE DRAINING YELLOWISH URINE OUTPUT. ALEKS HUGGER IN PLACE TEMP 97.5. NO EPISODE OF SEIZURE NOTED AT THIS TIME.ALL SAFETY MEASURES IN PLACE. HOB ELEVATED. CALL LIGHT WITHIN REACH. SEIZURE PRECAUTION IN PLACE AT ALL TIMES.WILL ENDORSE TO MORNING SHIFT FOR MARVA
[2022-03-03 07:03] LABS: BASOPHILS # (AUTO) 0.2 K/uL (0.0-0.2); BASOPHILS % (AUTO) 3.1 % (0.0-2.0); EOSINOPHILS % (AUTO) 4.8 % (0.0-6.0); HEMATOCRIT 30 % (33-45); HEMOGLOBIN 9.4 g/dL (11.5-14.8); LYMPHOCYTES # (AUTO) 0.6 K/uL (0.8-4.8); LYMPHOCYTES % (AUTO) 9.7 % (20.0-44.0); MEAN CORPUSCULAR HGB CONC 32 g/dl (31.0-36.0); MEAN CORPUSCULAR VOLUME 95 fL (82-100); MONOCYTES # (AUTO) 0.8 K/uL (0.1-1.30); MONOCYTES % (AUTO) 12.3 % (2.0-12.0); NEUTROPHILS # (AUTO) 4.4 K/uL (1.8-8.9); NEUTROPHILS % (AUTO) 70.1 % (43.0-81.0); PLATELET COUNT (AUTO) 224 K/uL (150-450); RED BLOOD CELL COUNT(AUTO) 3.11 MIL/uL (4.0-5.2); WHITE BLOOD COUNT (AUTO) 6.3 K/uL (4.3-11.0)
--- NOTE | 2022-03-03 07:09 | NUR ---
RN OPENING NOTES PATIENT IN BED NON RESPONSIVE, OBTUNDED REMAINS IN VENT TOLERATING WELL ON PRESCRIBE SETTINGS NO SOB NO DISTRESS NOTED. NO FACIAL GRIMACING NOTED. AIRBORNE AND CONTACT PRECAUTION CONTINUED. IV ACCESS R FA PICC LINE PATENT RUNNING NS@75 CC/HR. HIRSCH CATHETER CONNECTED TO URINE DRAINING YELLOWISH URINE OUTPUT. GT PATENT AND INTACT ON JEVITY 75ML/HR, TOLERATING WELL. ON TELE MONITORING WITH SR READING HR= 96. ALL SAFETY MEASURES IN PLACE. HOB ELEVATED. CALL LIGHT WITHIN REACH. SEIZURE PRECAUTION IN PLACE AT ALL TIMES. WILL CONTINUE TO MONITOR PATIENT.
[2022-03-03] MEDS: FERROUS SULFATE UDC 300 MG/5 ML UDC GT SCH (08:13)
[2022-03-03] MEDS: CHLORHEXIDINE GLUCONATE 15 ML UDC MM SCH ×2 (08:14→16:10)
[2022-03-03] MEDS: LEVETIRACETAM SOL (5 ML) 100 MG/ML UDC GT SCH ×2 (08:14→20:01)
[2022-03-03] MEDS: MULTIVIT W/MINERALS 1 TAB TABLET GT SCH (08:14)
[2022-03-03] MEDS: CHOLECALCIFEROL 1,000 UNIT TABLET (VIT D3) GT SCH (08:14)
[2022-03-03 08:18] LABS: CREATININE 0.9 mg/dL (0.6-1.3); PHOSPHORUS 3.7 mg/dL (2.5-4.9); POTASSIUM 4.3 mmol/L (3.5-5.1)
[2022-03-03] MEDS: DOCUSATE SODIUM LIQ 100 MG/10 ML UDC GT SCH (08:22)
[2022-03-03] MEDS: MIDODRINE HCL (5MG) 5 MG TABLET PO SCH ×3 (08:22→16:10)
[2022-03-03] MEDS: ENOXAPARIN SODIUM 40 MG/0.4 ML DISP.SYRIN SQ SCH (08:26)
[2022-03-03] MEDS: PANTOPRAZOLE 40 MG/PACK PACK GT SCH (08:28)
[2022-03-03] MEDS: FLUDROCORTISONE 0.1 MG TABLET GT SCH (08:28)
[2022-03-03] MEDS: IV NS 0.9% 1,000 ML IV PRN ×2 (09:22→19:29)
--- NOTE | 2022-03-03 10:35 | NUR ---
RNnote VS:BP 100/75, HR 76 , temp97.8,resp 20
[2022-03-03 11:24] VITALS: BP 95/66
[2022-03-03 12:00] VITALS: BP 96/57
[2022-03-03 17:55] VITALS: BP 94/58
--- NOTE | 2022-03-03 19:30 | NUR ---
SHANT RN OPENING NOTES RECEIVED PATIENT IN BED, OBTUNDED REMAINS IN VENT TOLERATING WELL, NO S/S OF ACUTE DISTRESS. AIRBORNE AND CONTACT PRECAUTION CONTINUED. IV ACCESS MAULIK PICC LINE PATENT RUNNING NS@75 CC/HR. HIRSCH CATHETER CONNECTED TO URINE DRAINING YELLOWISH URINE OUTPUT. GT, PATENT AND INTACT ON JEVITY 75ML/HR, ON TELE MONITORING WITH SR HR 85. PATIENT HAS A BAIRR HUGGER. VSS. ALL SAFETY MEASURES IN PLACE, CALL LIGHT WITHIN REACH AT ALL TIMES. WILL CONTINUE TO MONITOR THROUGHOUT SHIFT.
[2022-03-03 20:00] VITALS: BP 93/54
[2022-03-04] VITALS: BP 143/83
[2022-03-04] MEDS: IPRATROPIUM NEB FS 0.5 MG/2.5 ML AMPUL.NEB NEB SCH ×4 (00:54→19:30)
[2022-03-04] MEDS: ALBUTEROL FS 2.5 MG/0.5 ML VIAL.NEB IH SCH ×4 (00:55→19:30)
[2022-03-04 04:00] VITALS: BP 142/83
[2022-03-04] MEDS: ACYCLOVIR IV 500 MG in IV D5W 100 ML IV SCH ×3 (06:02→21:25)
[2022-03-04] MEDS: METOCLOPRAMIDE HCL 10 MG TABLET GT SCH ×3 (06:03→21:26)
[2022-03-04 06:48] LABS: BASOPHILS # (AUTO) 0.1 K/uL (0.0-0.2); BASOPHILS % (AUTO) 0.9 % (0.0-2.0); EOSINOPHILS % (AUTO) 5.4 % (0.0-6.0); HEMATOCRIT 29 % (33-45); HEMOGLOBIN 9.2 g/dL (11.5-14.8); LYMPHOCYTES # (AUTO) 0.7 K/uL (0.8-4.8); LYMPHOCYTES % (AUTO) 11.5 % (20.0-44.0); MEAN CORPUSCULAR HGB CONC 31 g/dl (31.0-36.0); MEAN CORPUSCULAR VOLUME 94 fL (82-100); MONOCYTES # (AUTO) 0.7 K/uL (0.1-1.30); MONOCYTES % (AUTO) 10.4 % (2.0-12.0); NEUTROPHILS # (AUTO) 4.6 K/uL (1.8-8.9); NEUTROPHILS % (AUTO) 71.8 % (43.0-81.0); PLATELET COUNT (AUTO) 207 K/uL (150-450); RED BLOOD CELL COUNT(AUTO) 3.12 MIL/uL (4.0-5.2); WHITE BLOOD COUNT (AUTO) 6.4 K/uL (4.3-11.0)
[2022-03-04 07:20] LABS: CREATININE 1.3 mg/dL (0.6-1.3); PHOSPHORUS 3.9 mg/dL (2.5-4.9); POTASSIUM 4.8 mmol/L (3.5-5.1)
--- NOTE | 2022-03-04 07:33 | NUR ---
RN OPEN NOTE RECEIVED PATIENT IN BED, NON RESPONSIVE , PATIENT REMAINS IN VENT TOLERATING WELL ON PRESCRIBE SETTINGS NO SOB NO DISTRESS NOTED. IV ACCESS R FA PICC LINE PATENT AND INTACT, RUNNING NS@75 CC/HR. HIRSCH CATHETER CONNECTED TO URINE DRAINING YELLOWISH URINE OUTPUT. GT PATENT AND INTACT, ON JEVITY @75ML/HR, TOLERATING WELL, ON TELE MONITORING WITH SR READING HR= 72. ALL SAFETY MEASURES IN PLACE. HOB ELEVATED. BLE ELEVATED. CALL LIGHT WITHIN REACH. SEIZURE PRECAUTION IN PLACE AT ALL TIMES.WILL CONTINUE TO FALLOW POC
[2022-03-04 08:00] VITALS: BP 98/63
[2022-03-04] MEDS: PANTOPRAZOLE 40 MG/PACK PACK GT SCH (08:44)
[2022-03-04] MEDS: FERROUS SULFATE UDC 300 MG/5 ML UDC GT SCH (08:44)
[2022-03-04] MEDS: CHLORHEXIDINE GLUCONATE 15 ML UDC MM SCH ×2 (08:44→16:04)
[2022-03-04] MEDS: CHOLECALCIFEROL 1,000 UNIT TABLET (VIT D3) GT SCH (08:44)
[2022-03-04] MEDS: DOCUSATE SODIUM LIQ 100 MG/10 ML UDC GT SCH (08:44)
[2022-03-04] MEDS: LEVETIRACETAM SOL (5 ML) 100 MG/ML UDC GT SCH ×2 (08:44→21:24)
[2022-03-04] MEDS: MULTIVIT W/MINERALS 1 TAB TABLET GT SCH (08:45)
[2022-03-04] MEDS: FLUDROCORTISONE 0.1 MG TABLET GT SCH (08:45)
[2022-03-04] MEDS: MIDODRINE HCL (5MG) 5 MG TABLET PO SCH ×3 (08:45→16:05)
[2022-03-04] MEDS: ENOXAPARIN SODIUM 40 MG/0.4 ML DISP.SYRIN SQ SCH (08:46)
--- NOTE | 2022-03-04 10:39 | NUR ---
RN NOTE CHECKED THE VS MANUALLY BP 96/67, RESP 20 , TEMP 98.7, REST 20, TEMP 98.7
[2022-03-04 12:35] VITALS: BP 116/63
[2022-03-04 17:00] VITALS: BP 108/65
--- NOTE | 2022-03-04 18:39 | NUR ---
RN CLOSING NOTE PATIENT IN BED, NON RESPONSIVE , PATIENT REMAINS IN VENT TOLERATING WELL ON PRESCRIBE SETTINGS NO SOB NO DISTRESS NOTED. IV ACCESS R FA PICC LINE PATENT AND INTACT, RUNNING NS@75 CC/HR. HIRSCH CATHETER CONNECTED TO URINE DRAINING YELLOWISH URINE OUTPUT. GT PATENT AND INTACT, ON JEVITY @75ML/HR, TOLERATING WELL, ON TELE MONITORING WITH SR READING HR= 78 ALL SAFETY MEASURES IN PLACE. ALL MEDS WERE ADMINISTERED HOB ELEVATED. BLE ELEVATED. CALL LIGHT WITHIN REACH. SEIZURE PRECAUTION IN PLACE AT ALL TIMES.WILL ENDORSE COTTON ROLL PACKER NURSE TO FALLOW POC
--- NOTE | 2022-03-04 19:15 | NUR ---
RN NOTES RECEIVED PT FOR CONTINUITY OF CARE. PATIENT A/OX0 IN NO S/SX OF ACUTE DISTRESS AT THIS TIME; CURRENTLY ON MECHANICAL VENT; SETTING PRESCRIBED, WITH 02 SAT >95% AT THIS TIME. WITH IV ACCESS ON R UA PICC; PATENT, INTACT AND FLUSHING WELL AND GTUBE FEEDING RUNNING PRESCRIBED. WILL ENSURE SAFETY MEASURES WITHIN THE SHIFT. PATIENT BED ALARM IS ON. HEAD OF BED ELEVATED. BED IS LOCKED, IN LOWEST POSITION AND SIDE RAILS UP. CALL LIGHT WITHIN REACH OF THE PATIENT. APPLICABLE ISOLATION PRECAUTIONS IN PLACE. WILL CONTINUE TO MONITOR AND REASSESS FOR ANY CHANGES AND WILL CARRY OUT ANY ONGOING AND ACTIVE MD ORDER.
[2022-03-04 20:00] VITALS: BP 105/65
[2022-03-05] VITALS: BP 106/61
[2022-03-05] MEDS: ALBUTEROL FS 2.5 MG/0.5 ML VIAL.NEB IH SCH ×4 (02:28→19:30)
[2022-03-05] MEDS: IPRATROPIUM NEB FS 0.5 MG/2.5 ML AMPUL.NEB NEB SCH ×4 (02:28→19:30)
[2022-03-05 04:00] VITALS: BP 106/67
--- NOTE | 2022-03-05 04:00 | NUR ---
RN NOTES PATIENT REMAINED TO BE IN NO SIGNS OF ACUTE RESPIRATORY DISTRESS , VITAL SIGNS STABLE. REGULAR TURNING AND REPOSITIONING DONE Q2H, SUCTIONING DONE, WOUND CARE AND AM PATIENT CARE RENDERED WILL CONTINUE TO MONITOR AND REASSESS FOR ANY CHANGES THROUGHOUT THE SHIFT.
[2022-03-05] MEDS: METOCLOPRAMIDE HCL 10 MG TABLET GT SCH ×3 (04:52→21:01)
[2022-03-05] MEDS: ACYCLOVIR IV 500 MG in IV D5W 100 ML IV SCH ×3 (04:52→21:00)
[2022-03-05] MEDS: IV NS 0.9% 1,000 ML IV PRN (05:44)
[2022-03-05 06:30] LABS: CALCIUM, SERUM 7.9 mg/dL (8.5-10.1); CREATININE 1.3 mg/dL (0.6-1.3); PHOSPHORUS 3.9 mg/dL (2.5-4.9); POTASSIUM 4.2 mmol/L (3.5-5.1)
--- NOTE | 2022-03-05 06:49 | NUR ---
RN CLOSING NOTE: PATIENT REMAINS IN ROOM IN NO SIGNS OF RESPIRATORY DISTRESS, PATIENT STILL ON MECH VENT; SETTINGS PRESCRIBED;TOLERATING WELL SATURATING @ >95% SP02. SAFETY MEASURES IMPLEMENTED, BED IN LOWEST POSITION, LOCKED, SIDE RAILS UP, CALL LIGHT WITHIN REACH. ALL NEEDS AND ORDERS ADDRESSED DURING THE SHIFT. IV ACCESS MAINTAINED INTACT, SECURED AND FLUSHING WELL. ALL DUE MEDS GIVEN ORDERED & SCHEDULED ; PATIENT TOLERATED WELL. PATIENT KEPT CLEAN AND COMFORTABLE WITHIN THE SHIFT. PATIENT ENDORSED TO INCOMING SHIFT RN WITH STABLE VITAL SIGN AND FOR CONTINUITY OF CARE.
[2022-03-05 07:02] LABS: BASOPHILS # (AUTO) 0.1 K/uL (0.0-0.2); BASOPHILS % (AUTO) 1.3 % (0.0-2.0); EOSINOPHILS % (AUTO) 4.9 % (0.0-6.0); HEMATOCRIT 27 % (33-45); HEMOGLOBIN 8.5 g/dL (11.5-14.8); LYMPHOCYTES # (AUTO) 0.9 K/uL (0.8-4.8); MEAN CORPUSCULAR HGB CONC 32 g/dl (31.0-36.0); MEAN CORPUSCULAR VOLUME 95 fL (82-100); MONOCYTES # (AUTO) 0.7 K/uL (0.1-1.30); MONOCYTES % (AUTO) 11.4 % (2.0-12.0); NEUTROPHILS # (AUTO) 3.9 K/uL (1.8-8.9); NEUTROPHILS % (AUTO) 66.4 % (43.0-81.0); PLATELET COUNT (AUTO) 183 K/uL (150-450); RED BLOOD CELL COUNT(AUTO) 2.83 MIL/uL (4.0-5.2); WHITE BLOOD COUNT (AUTO) 5.9 K/uL (4.3-11.0)
--- NOTE | 2022-03-05 07:11 | NUR ---
RN OPENING NOTE PT OBSERVED IN BED WITH HOB >30. PT IS ON MECHANICAL VENT WITH ALL PRESCRIBED SETTINGS TOLERATING WELL O2 SAT98%. PT IS A/OX1 OBTUNDED TELE MONITORED SR AT THIS TIME. FC IS IN PLACE DRAINING URINE TO GRAVITY GT IS IN PLACE WITH POSITIVE PLACEMENT INFUSING WITH JEVITY 1.2 @75ML/HR IV ACCESS R UA PICC INFUSING WITH NS@ 75ML/HR. BED IS LOCKED IN LOWEST POSITION X2 BED RAILS UP AND ALL HOSPITAL SAFETY MEASURES ARE IN PLACE. WILL CONTINUE TO MONITOR THIS SHIFT.
[2022-03-05 08:00] VITALS: BP 108/64
[2022-03-05] MEDS: CHLORHEXIDINE GLUCONATE 15 ML UDC MM SCH ×2 (09:02→16:19)
[2022-03-05] MEDS: LEVETIRACETAM SOL (5 ML) 100 MG/ML UDC GT SCH ×2 (09:02→21:01)
[2022-03-05] MEDS: FLUDROCORTISONE 0.1 MG TABLET GT SCH (09:03)
[2022-03-05] MEDS: MULTIVIT W/MINERALS 1 TAB TABLET GT SCH (09:03)
[2022-03-05] MEDS: PANTOPRAZOLE 40 MG/PACK PACK GT SCH (09:03)
[2022-03-05] MEDS: FERROUS SULFATE UDC 300 MG/5 ML UDC GT SCH (09:04)
[2022-03-05] MEDS: MIDODRINE HCL (5MG) 5 MG TABLET PO SCH ×3 (09:04→16:21)
[2022-03-05] MEDS: CHOLECALCIFEROL 1,000 UNIT TABLET (VIT D3) GT SCH (09:04)
[2022-03-05] MEDS: DOCUSATE SODIUM LIQ 100 MG/10 ML UDC GT SCH (09:04)
[2022-03-05] MEDS: ENOXAPARIN SODIUM 40 MG/0.4 ML DISP.SYRIN SQ SCH (09:06)
[2022-03-05 12:00] VITALS: BP 125/70
[2022-03-05 16:00] VITALS: BP 109/67
--- NOTE | 2022-03-05 18:29 | NUR ---
PATIENT IS NON VERBAL ON THE VENT WITH OXYGEN CONNECTED TO RED POWER SOURCE. PATIENT TRACH IS INTACT NO DISTRESS NOTED. BVM BY THE BEDSIDE. NO DISTRESS NOTED. Addendum: 03/05/22 at 1831 by ROZ MCLEAN RT Amended: Links added.
[2022-03-05] MEDS: JEVITY 1.2 CAL 1,000 ML BOTTLE GT PRN (18:37)
--- NOTE | 2022-03-05 18:59 | NUR ---
RN CLOSING NOTE PT OBSERVED IN BED WITH HOB >30. PT IS ON MECHANICAL VENT WITH ALL PRESCRIBED SETTINGS TOLERATING WELL O2 SAT 99%. PT IS A/OX1 OBTUNDED TELE MONITORED SR AT THIS TIME. FC IS IN PLACE DRAINING URINE -1400ML TO GRAVITY GT IS IN PLACE WITH POSITIVE PLACEMENT INFUSING WITH JEVITY 1.2 @75ML/HR IV ACCESS R UA PICC INFUSING WITH NS@ 75ML/HR. BED IS LOCKED IN LOWEST POSITION X2 BED RAILS UP AND ALL HOSPITAL SAFETY MEASURES ARE IN PLACE. WILL ENDORSE TO SHOW HOST NURSE FOR MARVA.
--- NOTE | 2022-03-05 19:52 | NUR ---
RN OPENING NOTES: RECEIVED PT IN BED OBTUNDED. ON MECHANICAL VENT SETTING AND PT TOLERATED WELL. IV ACCESS MAULIK PICC INFUSING WITH NS@ 75ML/HR. NO FACIAL GRIMACING NOTED. NO ACUTE DISTRESS. HIRSCH CATHETER IN PLACE, DRAINING URINE BY GRAVITY. GTUBE FEEDING WELL TOLERATED. JEVITY 1.2 @75ML/HR. ALL SAFETY MEASURES IN PLACE. BED IS IN LOWEST POSITION AND LOCKED. SIDE RAILS UP X3, PLACE CALL LIGHT WITH IN REACH.WILL CONTINUE TO MONITOR
[2022-03-05 20:00] VITALS: BP 135/77
[2022-03-06] VITALS: BP 113/70
--- NOTE | 2022-03-06 00:15 | NUR ---
RN NOTES: PT'S TEMP 94.2, APPLIED ALEKS CHOW. WILL CONTINUE TO MONITOR
[2022-03-06] MEDS: IPRATROPIUM NEB FS 0.5 MG/2.5 ML AMPUL.NEB NEB SCH ×4 (02:09→21:24)
[2022-03-06] MEDS: ALBUTEROL FS 2.5 MG/0.5 ML VIAL.NEB IH SCH ×4 (02:09→21:24)
[2022-03-06] MEDS: IV NS 0.9% 1,000 ML IV PRN ×2 (03:20→18:52)
[2022-03-06 04:00] VITALS: BP 116/72
[2022-03-06] MEDS: ACYCLOVIR IV 500 MG in IV D5W 100 ML IV SCH ×3 (05:01→21:22)
[2022-03-06] MEDS: METOCLOPRAMIDE HCL 10 MG TABLET GT SCH ×3 (05:01→21:22)
[2022-03-06 05:54] LABS: BASOPHILS # (AUTO) 0.1 K/uL (0.0-0.2); BASOPHILS % (AUTO) 0.8 % (0.0-2.0); EOSINOPHILS % (AUTO) 5.7 % (0.0-6.0); HEMATOCRIT 29 % (33-45); HEMOGLOBIN 9.3 g/dL (11.5-14.8); LYMPHOCYTES # (AUTO) 0.7 K/uL (0.8-4.8); LYMPHOCYTES % (AUTO) 9.2 % (20.0-44.0); MEAN CORPUSCULAR HGB CONC 32 g/dl (31.0-36.0); MEAN CORPUSCULAR VOLUME 94 fL (82-100); MONOCYTES # (AUTO) 0.5 K/uL (0.1-1.30); MONOCYTES % (AUTO) 6.4 % (2.0-12.0); NEUTROPHILS % (AUTO) 77.9 % (43.0-81.0); PLATELET COUNT (AUTO) 214 K/uL (150-450); RED BLOOD CELL COUNT(AUTO) 3.11 MIL/uL (4.0-5.2); WHITE BLOOD COUNT (AUTO) 7.7 K/uL (4.3-11.0)
[2022-03-06 06:48] LABS: CALCIUM, SERUM 8.9 mg/dL (8.5-10.1); CREATININE 1.1 mg/dL (0.6-1.3); MAGNESIUM 1.9 mg/dL (1.8-2.4); PHOSPHORUS 4.9 mg/dL (2.5-4.9); POTASSIUM 4.4 mmol/L (3.5-5.1)
--- NOTE | 2022-03-06 06:49 | NUR ---
RN CLOSING NOTES: PT IN BED OBTUNDED. ON MECHANICAL VENT SETTING AND PT TOLERATED WELL. IV ACCESS MAULIK PICC INFUSING WITH NS@ 75ML/HR. NO FACIAL GRIMACING NOTED. NO ACUTE DISTRESS. HIRSCH CATHETER IN PLACE, DRAINING URINE BY GRAVITY. GTUBE FEEDING WELL TOLERATED. JEVITY 1.2 @75ML/HR X20 HRS. OFF AT 2200 AND ON AT 0200. ALL DUE MEDS GIVEN ORDERED. ALL SAFETY MEASURES IN PLACE. BED IS IN LOWEST POSITION AND LOCKED. SIDE RAILS UP X3, PLACE CALL LIGHT WITH IN REACH.WILL ENDORSE TO MORNING SHIFT NURSE.
--- NOTE | 2022-03-06 07:34 | NUR ---
MANAGER CATEGORY OPENING NOTES RECEIVED PATIENT IN BED OBTUNDED. NO SOB NOTED AT THIS TIME AND IS ON MECHANICAL VENT WITH PORTEX # 8, VENT SETTING FOLLOWS: AC 14, TV 450%, FI02 40% PEEP 5. PATIENT HAS IV ACCESS ON MAULIK PICC INFUSING WITH NS @ 75ML/HR, NO S/S INFILTRATION NOTED. HIRSCH CATHETER INTACT, DRAINING URINE BY GRAVITY WITH YELLOW COLORED URINE, NO HEMATURIA AND NO SEDIMENTATION PRESENT. G-TUBE IN PLACE, INTACT NO RESIDUAL NOTED. G-TUBE FEEDING OF JEVITY @ 1.2 @ 75 ML/HR. FEEDING WELL TOLERATED. HOB KEPT ELEVATED. ALL SAFETY MEASURES IN PLACE. BED LOCKED AND IN LOWEST POSITION. SIDE RAILS UP X3. CALL LIGHT IN PLACE. WILL CONTINUE TO MONITOR PATIENT THROUGHOUT SHIFT.
[2022-03-06 08:00] VITALS: BP 116/68
[2022-03-06] MEDS: ENOXAPARIN SODIUM 40 MG/0.4 ML DISP.SYRIN SQ SCH (09:34)
[2022-03-06] MEDS: CHLORHEXIDINE GLUCONATE 15 ML UDC MM SCH ×2 (09:34→17:34)
[2022-03-06] MEDS: MIDODRINE HCL (5MG) 5 MG TABLET PO SCH ×3 (09:34→17:34)
[2022-03-06] MEDS: FLUDROCORTISONE 0.1 MG TABLET GT SCH (09:34)
[2022-03-06] MEDS: MULTIVIT W/MINERALS 1 TAB TABLET GT SCH (09:35)
[2022-03-06] MEDS: CHOLECALCIFEROL 1,000 UNIT TABLET (VIT D3) GT SCH (09:35)
[2022-03-06] MEDS: DOCUSATE SODIUM LIQ 100 MG/10 ML UDC GT SCH (09:35)
[2022-03-06] MEDS: FERROUS SULFATE UDC 300 MG/5 ML UDC GT SCH (09:35)
[2022-03-06] MEDS: LEVETIRACETAM SOL (5 ML) 100 MG/ML UDC GT SCH ×2 (09:35→21:23)
[2022-03-06] MEDS: PANTOPRAZOLE 40 MG/PACK PACK GT SCH (09:35)
[2022-03-06 12:00] VITALS: BP 112/63
[2022-03-06 16:00] VITALS: BP 108/59
[2022-03-06] MEDS: JEVITY 1.2 CAL 1,000 ML BOTTLE GT PRN (18:52)
--- NOTE | 2022-03-06 19:01 | NUR ---
HISTORY INSTRUCTOR CLOSING NOTES: PATIENT IN BED, OBTUNDED, WITH MECHANICAL VENT WITH SETTING ORDERED. PATIENT IN NO ACUTE DISTRESS NOTED THE ENTIRE SHIFT. ON SR ON TELE MONITOR. NO SEIZURE EPISODE NOTED DURING THE SHIFT. PATIENT KEPT CLEAN AND DRY AND REPOSITIONED PER PROTOCOL. WILL ENDORSE TO NEXT SHIFT NURSE FOR CONTINUITY OF CARE. PATIENT'S PICC LINE INTACT WITH NS @ ORDERED. G-TUBE FEEDING OF JEVITY 1.2 BEING ADMINISTERED. HIRSCH CATHETER IN PLACE. WILL ENDORSE TO NEXT SHIFT NURSE FOR CONTINUITY OF CARE.
--- NOTE | 2022-03-06 19:49 | NUR ---
RN OPENING NOTES: RECEIVED PT IN BED, OBTUNDED. ON MECHANICAL VENT SETTING AND PT TOLERATED WELL. IV ACCESS MAULIK PICC INFUSING WITH NS@ 75ML/HR. NO FACIAL GRIMACING NOTED. NO ACUTE DISTRESS. GTUBE FEEDING WELL TOLERATED. JEVITY 1.2 @75ML/HR. PT TOLERATED WELL. HIRSCH CATHETER IN PLACE, DRAINING URINE BY GRAVITY.ALL SAFETY MEASURES IN PLACE. BED IS IN LOWEST POSITION AND LOCKED. SIDE RAILS UP X3, PLACE CALL LIGHT WITH IN REACH.WILL CONTINUE TO MONITOR
[2022-03-06 20:00] VITALS: BP 132/73
[2022-03-07] VITALS: BP 104/69
[2022-03-07] MEDS: IPRATROPIUM NEB FS 0.5 MG/2.5 ML AMPUL.NEB NEB SCH ×4 (02:25→20:24)
[2022-03-07] MEDS: ALBUTEROL FS 2.5 MG/0.5 ML VIAL.NEB IH SCH ×4 (02:25→20:24)
[2022-03-07 04:00] VITALS: BP 140/71
[2022-03-07] MEDS: METOCLOPRAMIDE HCL 10 MG TABLET GT SCH ×3 (04:37→20:21)
[2022-03-07] MEDS: ACYCLOVIR IV 500 MG in IV D5W 100 ML IV SCH ×3 (04:38→20:20)
[2022-03-07 06:21] LABS: CALCIUM, SERUM 8.6 mg/dL (8.5-10.1); CREATININE 0.8 mg/dL (0.6-1.3); MAGNESIUM 2.3 mg/dL (1.8-2.4); PHOSPHORUS 5.2 mg/dL (2.5-4.9); POTASSIUM 4.5 mmol/L (3.5-5.1)
--- NOTE | 2022-03-07 06:46 | NUR ---
RN CLOSING NOTES: PT IN BED, OBTUNDED. ON MECHANICAL VENT SETTING AND PT TOLERATED WELL. O2 SAT 100%. IV ACCESS MAULIK PICC INFUSING WITH NS@ 75ML/HR. NO FACIAL GRIMACING NOTED. NO ACUTE DISTRESS. GTUBE FEEDING WELL TOLERATED. JEVITY 1.2 @75ML/HR X20 HRS. OFF AT 2200 AND ON AT 0200. HIRSCH CATHETER IN PLACE, DRAINING URINE BY GRAVITY. ALL DUE MEDS GIVEN ORDER. ALL SAFETY MEASURES IN PLACE. BED IS IN LOWEST POSITION AND LOCKED. SIDE RAILS UP X3, PLACE CALL LIGHT WITH IN REACH.WILL ENDORSE TO MORNING SHIFT NURSE.
[2022-03-07 07:38] LABS: BASOPHILS # (AUTO) 0.1 K/uL (0.0-0.2); BASOPHILS % (AUTO) 1.1 % (0.0-2.0); EOSINOPHILS % (AUTO) 6.4 % (0.0-6.0); HEMATOCRIT 28 % (33-45); HEMOGLOBIN 8.9 g/dL (11.5-14.8); LYMPHOCYTES % (AUTO) 13.5 % (20.0-44.0); MEAN CORPUSCULAR HGB CONC 32 g/dl (31.0-36.0); MEAN CORPUSCULAR VOLUME 95 fL (82-100); MONOCYTES # (AUTO) 0.7 K/uL (0.1-1.30); MONOCYTES % (AUTO) 9.7 % (2.0-12.0); NEUTROPHILS # (AUTO) 4.9 K/uL (1.8-8.9); NEUTROPHILS % (AUTO) 69.3 % (43.0-81.0); PLATELET COUNT (AUTO) 196 K/uL (150-450); RED BLOOD CELL COUNT(AUTO) 2.95 MIL/uL (4.0-5.2); WHITE BLOOD COUNT (AUTO) 7.1 K/uL (4.3-11.0)
[2022-03-07 08:00] VITALS: BP 113/69
[2022-03-07] MEDS: LEVETIRACETAM SOL (5 ML) 100 MG/ML UDC GT SCH ×2 (10:31→20:21)
[2022-03-07] MEDS: PANTOPRAZOLE 40 MG/PACK PACK GT SCH (10:31)
[2022-03-07] MEDS: CHOLECALCIFEROL 1,000 UNIT TABLET (VIT D3) GT SCH (10:32)
[2022-03-07] MEDS: FLUDROCORTISONE 0.1 MG TABLET GT SCH (10:32)
[2022-03-07] MEDS: FERROUS SULFATE UDC 300 MG/5 ML UDC GT SCH (10:32)
[2022-03-07] MEDS: MULTIVIT W/MINERALS 1 TAB TABLET GT SCH (10:32)
[2022-03-07] MEDS: CHLORHEXIDINE GLUCONATE 15 ML UDC MM SCH ×2 (10:32→17:03)
[2022-03-07] MEDS: DOCUSATE SODIUM LIQ 100 MG/10 ML UDC GT SCH (10:32)
[2022-03-07] MEDS: MIDODRINE HCL (5MG) 5 MG TABLET PO SCH ×3 (10:33→17:00)
[2022-03-07] MEDS: ENOXAPARIN SODIUM 40 MG/0.4 ML DISP.SYRIN SQ SCH (10:34)
[2022-03-07] MEDS: IV NS 0.9% 1,000 ML IV PRN (11:38)
[2022-03-07 12:00] VITALS: BP 129/71
[2022-03-07 16:00] VITALS: BP 139/80
--- NOTE | 2022-03-07 19:10 | NUR ---
RN CLOSING NOTES: PT IN RESTING BED, OBTUNDED. ON MECHANICAL VENT SETTINGS , PT TOLERATED WELL. O2 SAT 100%. IV ACCESS MAULIK PICC INFUSING WITH NS@ 75ML/HR. NO FACIAL GRIMACING NOTED. NO ACUTE DISTRESS. GTUBE FEEDING WELL TOLERATED. JEVITY 1.2 @75ML/HR X20 HRS. OFF AT 2200 AND ON AT 0200. HIRSCH CATHETER IN PLACE, DRAINING WELL. ALL DUE MEDS GIVEN. SAFETY MEASURES IN PLACE. BED IS IN LOWEST POSITION AND LOCKED. SIDE RAILS UP X3, PLACE.
--- NOTE | 2022-03-07 19:46 | NUR ---
RN OPENING NOTES: RECEIVED PT IN BED, OBTUNDED. ON MECHANICAL VENT SETTING AND PT TOLERATED WELL. P#8, AC-14, TV-450, FIO2-40, PEEP-5. IV ACCESS MAULIK PICC INFUSING WELL WITH NS@ 75ML/HR. NO FACIAL GRIMACING NOTED. NO ACUTE DISTRESS. GTUBE FEEDING WELL TOLERATED. JEVITY 1.2 @75ML/HR. PT TOLERATED WELL. HIRSCH CATHETER IN PLACE, DRAINING URINE BY GRAVITY. NOTED YELLOWISH/CLEAR URINE. ON ISOLATION PRECAUTION. ALL SAFETY MEASURES IN PLACE. BED IS IN LOWEST POSITION AND LOCKED. SIDE RAILS UP X3, PLACE CALL LIGHT WITH IN REACH.WILL CONTINUE TO MONITOR
[2022-03-07 20:00] VITALS: BP 141/88
--- NOTE | 2022-03-07 20:20 | NUR ---
RN NOTES: PT'S TEMP DECREASED TO 93.2 F. APPLIED ALEKS CHOW. WILL CONTINUE TO MONITOR
[2022-03-08] VITALS: BP 115/72
[2022-03-08] MEDS: JEVITY 1.2 CAL 1,000 ML BOTTLE GT PRN (02:01)
[2022-03-08] MEDS: ALBUTEROL FS 2.5 MG/0.5 ML VIAL.NEB IH SCH ×4 (03:02→20:16)
[2022-03-08] MEDS: IPRATROPIUM NEB FS 0.5 MG/2.5 ML AMPUL.NEB NEB SCH ×4 (03:02→20:16)
[2022-03-08 04:00] VITALS: BP 113/65
[2022-03-08] MEDS: METOCLOPRAMIDE HCL 10 MG TABLET GT SCH ×3 (04:57→21:23)
[2022-03-08] MEDS: ACYCLOVIR IV 500 MG in IV D5W 100 ML IV SCH ×3 (04:57→21:23)
--- NOTE | 2022-03-08 06:48 | NUR ---
RN CLOSING NOTES: PT IN BED, OBTUNDED. ON MECHANICAL VENT SETTING AND PT TOLERATED WELL. P#8, AC-14, TV-450, FIO2-40, PEEP-5. O2 SAT 100%. IV ACCESS MAULIK PICC INFUSING WELL WITH NS@ 75ML/HR. NO FACIAL GRIMACING NOTED. NO ACUTE DISTRESS. GTUBE FEEDING WELL TOLERATED. JEVITY 1.2 @75ML/HR. PT TOLERATED WELL. HIRSCH CATHETER IN PLACE, DRAINING URINE BY GRAVITY. NOTED YELLOWISH/CLEAR URINE. ON ISOLATION PRECAUTION. ALL DUE MEDS GIVEN ORDERED. ALL SAFETY MEASURES IN PLACE. BED IS IN LOWEST POSITION AND LOCKED. SIDE RAILS UP X3, PLACE CALL LIGHT WITH IN REACH.POLYORSE TO MORNING SHIFT NURSE.
[2022-03-08 07:36] LABS: BASOPHILS % (AUTO) 0.5 % (0.0-2.0); EOSINOPHILS % (AUTO) 8.5 % (0.0-6.0); HEMATOCRIT 30 % (33-45); HEMOGLOBIN 9.4 g/dL (11.5-14.8); LYMPHOCYTES % (AUTO) 11.3 % (20.0-44.0); MEAN CORPUSCULAR HGB CONC 32 g/dl (31.0-36.0); MEAN CORPUSCULAR VOLUME 96 fL (82-100); MONOCYTES # (AUTO) 0.6 K/uL (0.1-1.30); MONOCYTES % (AUTO) 6.3 % (2.0-12.0); NEUTROPHILS # (AUTO) 6.8 K/uL (1.8-8.9); NEUTROPHILS % (AUTO) 73.4 % (43.0-81.0); PLATELET COUNT (AUTO) 231 K/uL (150-450); WHITE BLOOD COUNT (AUTO) 9.2 K/uL (4.3-11.0)
--- NOTE | 2022-03-08 07:47 | NUR ---
RN OPEN NOTE PT IN BED, OBTUNDED. ON MECHANICAL VENT SETTING AND PT TOLERATED WELL. P#8, AC-14, TV-450, FIO2-40, PEEP-5. O2 SAT 100%. IV ACCESS MAULIK PICC LINE INFUSING WELL WITH NS@ 75ML/HR. NO FACIAL GRIMACING NOTED. NO ACUTE DISTRESS. GTUBE FEEDING WELL TOLERATED. JEVITY 1.2 @75ML/HR. PT TOLERATED WELL. HIRSCH CATHETER IN PLACE, DRAINING URINE BY GRAVITY. NOTED YELLOWISH/CLEAR URINE. ON ISOLATION PRECAUTION. ALL SAFETY MEASURES IN PLACE. BED IS IN LOWEST POSITION AND LOCKED. SIDE RAILS UP X3, PLACE CALL LIGHT WITH IN REACH.WILL CONTINUE TO FALLOW UP WITH POC.
[2022-03-08 08:00] VITALS: BP 106/65
[2022-03-08] MEDS: LEVETIRACETAM SOL (5 ML) 100 MG/ML UDC GT SCH ×2 (08:05→21:23)
[2022-03-08] MEDS: DOCUSATE SODIUM LIQ 100 MG/10 ML UDC GT SCH (08:05)
[2022-03-08] MEDS: FERROUS SULFATE UDC 300 MG/5 ML UDC GT SCH (08:05)
[2022-03-08] MEDS: PANTOPRAZOLE 40 MG/PACK PACK GT SCH (08:05)
[2022-03-08] MEDS: CHLORHEXIDINE GLUCONATE 15 ML UDC MM SCH ×2 (08:05→16:07)
[2022-03-08] MEDS: FLUDROCORTISONE 0.1 MG TABLET GT SCH (08:06)
[2022-03-08 08:08] LABS: CALCIUM, SERUM 8.5 mg/dL (8.5-10.1); CREATININE 0.6 mg/dL (0.6-1.3); MAGNESIUM 2.1 mg/dL (1.8-2.4); PHOSPHORUS 5.2 mg/dL (2.5-4.9); POTASSIUM 4.9 mmol/L (3.5-5.1)
[2022-03-08] MEDS: MULTIVIT W/MINERALS 1 TAB TABLET GT SCH (08:13)
[2022-03-08] MEDS: CHOLECALCIFEROL 1,000 UNIT TABLET (VIT D3) GT SCH (08:13)
[2022-03-08] MEDS: MIDODRINE HCL (5MG) 5 MG TABLET PO SCH ×3 (08:13→16:07)
[2022-03-08] MEDS: ENOXAPARIN SODIUM 40 MG/0.4 ML DISP.SYRIN SQ SCH (08:21)
[2022-03-08 12:00] VITALS: BP 111/67
[2022-03-08] MEDS: IV NS 0.9% 1,000 ML IV PRN (12:59)
[2022-03-08 17:39] VITALS: BP 137/70
--- NOTE | 2022-03-08 18:37 | NUR ---
RN CLOSE NOTE PT IN BED, OBTUNDED. ON MECHANICAL VENT SETTING AND PT TOLERATED WELL. P#8, AC-14, TV-450, FIO2-40, PEEP-5. O2 SAT 100%. IV ACCESS MAULIK PICC LINE INFUSING WELL WITH NS@ 75ML/HR. NO FACIAL GRIMACING NOTED. NO ACUTE DISTRESS. GTUBE FEEDING WELL TOLERATED. JEVITY 1.2 @75ML/HR. PT TOLERATED WELL. HIRSCH CATHETER IN PLACE, DRAINING URINE BY GRAVITY. NOTED YELLOWISH/CLEAR URINE. ON ISOLATION PRECAUTION. ALL SAFETY MEASURES IN PLACE.ALL MEDICATIONS WERE ADMINISTERED , ALL NEEDS WRE MET BED IS IN LOWEST POSITION AND LOCKED. SIDE RAILS UP X3, PLACE CALL LIGHT WITH IN REACH.WILL ENDORSE PERSONNEL OFFICER NURSE TO FALLOW UP WITH POC.
[2022-03-08 19:07] LABS: EOSINOPHILS % (MANUAL) 5 % (0-4); LYMPHOCYTES % (MANUAL) 14 % (16-48); MONOCYTES % (MANUAL) 5 % (0-11.0); NEUTROPHILS % (MANUAL) 76 (42-76)
[2022-03-08 20:00] VITALS: BP 143/80
--- NOTE | 2022-03-08 22:09 | NUR ---
REGISTERED RESPIRATORY THERAPIST OPENING NOTE PT RECEIVED IN BED, OBTUNDED. PT ON PORTEX #8, AC 14, TV 450, FIO2 40%, PEEP 5 WITH CURRENT O2SAT OF 100%; NO S/S OF RESP DISTRESS, NO SOB OR COUGH, NON-LABORED AND EQUAL BREATHING. PT ATTACHED TO EXTERNAL MONITOR, SB WITH HR OF 51. HIRSCH INTACT AND PATENT, DRAINING CLOUDY AND YELLOW URINE. GTD C/D/I WITH JEVITY RUNNING AT 75 ML/HR. MAULIK PICC LINE INTACT AND PATENT, FLUSHES EASILY WITH NO RESISTANCE; NS INFUSING AT 75 ML/HR. BED IN LOWEST POSITION, CALL LIGHT WITHIN REACH, SIDE RAILS UP X3 AND PADDED. WILL CONTINUE TO MONITOR THROUGHOUT THE NIGHT.
[2022-03-09] VITALS: BP 115/72
[2022-03-09] MEDS: IPRATROPIUM NEB FS 0.5 MG/2.5 ML AMPUL.NEB NEB SCH ×4 (02:17→20:55)
[2022-03-09] MEDS: ALBUTEROL FS 2.5 MG/0.5 ML VIAL.NEB IH SCH ×4 (02:17→20:55)
[2022-03-09] MEDS: JEVITY 1.2 CAL 1,000 ML BOTTLE GT PRN (03:58)
[2022-03-09 04:00] VITALS: BP 130/55
[2022-03-09] MEDS: IV NS 0.9% 1,000 ML IV PRN ×2 (04:02→15:17)
[2022-03-09] MEDS: METOCLOPRAMIDE HCL 10 MG TABLET GT SCH ×2 (04:04→13:33)
[2022-03-09] MEDS: ACYCLOVIR IV 500 MG in IV D5W 100 ML IV SCH ×2 (04:04→13:33)
--- NOTE | 2022-03-09 06:59 | NUR ---
RADIOLOGICAL ENGINEER CLOSING NOTE PT REMAINS IN BED, OBTUNDED, NON-VERBAL. PT REMAINS ON SAME VENT SETTINGS; TOLERATED VENT SETTINGS WELL WITH O2SAT STABLE AT 100% THROUGHOUT THE WHOLE NIGHT; NO S/S OF RESP DISTRESS, NO SOB OR COUGH, NON-LABORED AND EQUAL BREATHING. ATTACHED TO EXTERNAL MONITOR SB-SR WITH HR RANGING FROM 51-65. GTD C/D/I; JEVITY RUNNING AT 75 ML/HR. HIRSCH INTACT AND PATENT, DRAINING YELLOW AND CLEAR URINE. MAULIK PICC LINE INFUSING NS AT 75 ML/HR. ALL DUE MEDS ADMINISTERED DURING THE NIGHT. BED IN LOWEST POSITION, CALL LIGHT WITHIN REACH, SIDE RAILS UP X3. [facility]. Addendum: 03/09/22 at 0702 by PRINCESS RAF MURPHY NO SEIZURES NOTED DURING THE NIGHT
[2022-03-09 07:02] LABS: BASOPHILS # (AUTO) 0.1 K/uL (0.0-0.2); EOSINOPHILS % (AUTO) 9.6 % (0.0-6.0); HEMATOCRIT 29 % (33-45); HEMOGLOBIN 9.2 g/dL (11.5-14.8); LYMPHOCYTES # (AUTO) 0.8 K/uL (0.8-4.8); LYMPHOCYTES % (AUTO) 12.7 % (20.0-44.0); MEAN CORPUSCULAR HGB CONC 32 g/dl (31.0-36.0); MEAN CORPUSCULAR VOLUME 94 fL (82-100); MONOCYTES # (AUTO) 0.3 K/uL (0.1-1.30); MONOCYTES % (AUTO) 5.1 % (2.0-12.0); NEUTROPHILS # (AUTO) 4.4 K/uL (1.8-8.9); NEUTROPHILS % (AUTO) 71.6 % (43.0-81.0); PLATELET COUNT (AUTO) 210 K/uL (150-450); WHITE BLOOD COUNT (AUTO) 6.1 K/uL (4.3-11.0)
--- NOTE | 2022-03-09 07:15 | NUR ---
MANDREL CLEANER OPENING NOTE PT RECEIVED IN BED, OBTUNDED. PT ON PORTEX #8, AC 14, TV 450, FIO2 40%, PEEP 5 WITH CURRENT O2SAT OF 100%; NO S/S OF RESP DISTRESS, NO SOB OR COUGH, NON-LABORED BREATHING. PT ATTACHED TO EXTERNAL MONITOR, SB WITH HR OF 51. HIRSCH INTACT AND PATENT, DRAINING CLOUDY AND YELLOW URINE. GTD C/D/I WITH JEVITY RUNNING AT 75 ML/HR. MAULIK PICC LINE INTACT AND PATENT, FLUSHES EASILY WITH NO RESISTANCE; NS INFUSING AT 75 ML/HR. BED IN LOWEST POSITION, CALL LIGHT WITHIN REACH, SIDE RAILS UP X3 AND PADDED. WILL CONTINUE TO MONITOR THROUGHOUT THE NIGHT.
[2022-03-09 07:16] LABS: CALCIUM, SERUM 8.7 mg/dL (8.5-10.1); CREATININE 0.5 mg/dL (0.6-1.3); MAGNESIUM 1.8 mg/dL (1.8-2.4); PHOSPHORUS 5.1 mg/dL (2.5-4.9); POTASSIUM 3.8 mmol/L (3.5-5.1)
[2022-03-09 08:00] VITALS: BP 123/71
[2022-03-09] MEDS: FERROUS SULFATE UDC 300 MG/5 ML UDC GT SCH (09:41)
[2022-03-09] MEDS: CHLORHEXIDINE GLUCONATE 15 ML UDC MM SCH ×2 (09:41→16:31)
[2022-03-09] MEDS: MULTIVIT W/MINERALS 1 TAB TABLET GT SCH (09:41)
[2022-03-09] MEDS: PANTOPRAZOLE 40 MG/PACK PACK GT SCH (09:41)
[2022-03-09] MEDS: CHOLECALCIFEROL 1,000 UNIT TABLET (VIT D3) GT SCH (09:42)
[2022-03-09] MEDS: DOCUSATE SODIUM LIQ 100 MG/10 ML UDC GT SCH (09:42)
[2022-03-09] MEDS: MIDODRINE HCL (5MG) 5 MG TABLET PO SCH ×3 (09:42→16:31)
[2022-03-09] MEDS: FLUDROCORTISONE 0.1 MG TABLET GT SCH (09:42)
[2022-03-09] MEDS: LEVETIRACETAM SOL (5 ML) 100 MG/ML UDC GT SCH (09:42)
[2022-03-09] MEDS: ENOXAPARIN SODIUM 40 MG/0.4 ML DISP.SYRIN SQ SCH (09:44)
[2022-03-09 12:00] VITALS: BP 131/74
[2022-03-09 16:00] VITALS: BP 125/69
[2022-03-09 16:31] VITALS: BP 125/69
--- NOTE | 2022-03-09 18:49 | NUR ---
PUBLISHER ASSISTANT CLOSING NOTE PT REMAINS IN BED, OBTUNDED, NON-VERBAL. PT REMAINS ON SAME VENT SETTINGS; TOLERATED VENT SETTINGS WELL WITH O2SAT STABLE AT 100% THROUGHOUT THE WHOLE NIGHT; NO S/S OF RESP DISTRESS, NO SOB OR COUGH, NON-LABORED AND EQUAL BREATHING. GTD C/D/I; JEVITY RUNNING AT 75 ML/HR. HIRSCH INTACT AND PATENT, DRAINING YELLOW AND CLEAR URINE. MAULIK PICC LINE INFUSING NS AT 75 ML/HR. ALL DUE MEDS ADMINISTERED DURING THE NIGHT. BED IN LOWEST POSITION, CALL LIGHT WITHIN REACH, SIDE RAILS UP X3. WILL DISCHARGE TO [facility] AT 8 OM,
--- NOTE | 2022-03-09 19:51 | NUR ---
RN NOTE REPORT GIVEN TO [facility] NURSE SOLORIO WITH EXPECTED SURGICAL PHYSICIAN ASSISTANT TIME OF 1999. Addendum: 03/09/22 at 1 by PRINCESS CARBONE RN MEHDI SOLORIO, WOULD LIKE TO KEEP HIRSCH AND PICC LINE IN.
--- NOTE | 2022-03-09 21:11 | NUR ---
DC NOTE REPORT GIVEN TO EMT CREW, INCLUDING PT'S VENT SETTINGS. VSS WITH NO SIGNIFICANT FINDINGS. ALL PAPERWORKS SIGNED AND COMPLETED AND PLACED IN DC PACKET. MAULIK PICC LINE AND HIRSCH REMAIN IN PLACE PER REQUEST OF [facility]SM[facility] FROM [facility]. PT LEFT UNIT VIA GURNEY IN STABLE CONDITION.
== END 2022-03-09 23:07 | DRG 385 ==
LOC: TELE1 22:04 → TELE-TD 03-02 00:30 → TELE1 03-04 14:33
PROVIDERS: ADMIT Nurse Practitioner Acute Care; ATTEND Student in an Organized Health Care Education/Training Program
PROC: 5A1955Z Respiratory Ventilation, Greater than 96 Consecutive Hours (ICD-10-PCS; principal; 2022-03-01)
PROC: 0HBEXZX Excision of Left Lower Arm Skin, External Approach, Diagnostic (ICD-10-PCS; 2022-03-02)
DX: L30.9 Dermatitis, unspecified (principal); G93.40 Encephalopathy, unspecified; T68.XXXA Hypothermia, initial encounter; E43 Unspecified severe protein-calorie malnutrition; D68.59 Other primary thrombophilia; D63.8 Anemia in other chronic diseases classified elsewhere; E83.39 Other disorders of phosphorus metabolism; E27.40 Unspecified adrenocortical insufficiency; E87.0 Hyperosmolality and hypernatremia; I27.20 Pulmonary hypertension, unspecified; J96.10 Chronic respiratory failure, unspecified whether with hypoxia or hypercapnia; Z93.0 Tracheostomy status; Z99.11 Dependence on respirator [ventilator] status; R13.10 Dysphagia, unspecified; Z93.1 Gastrostomy status; G40.909 Epilepsy, unspecified, not intractable, without status epilepticus; Z87.820 Personal history of traumatic brain injury; Z98.2 Presence of cerebrospinal fluid drainage device; Z79.51 Long term (current) use of inhaled steroids; Z79.01 Long term (current) use of anticoagulants; Z79.899 Other long term (current) drug therapy; Z74.09 Other reduced mobility; H57.02 Anisocoria; V89.2XXS Person injured in unspecified motor-vehicle accident, traffic, sequela; I10 Essential (primary) hypertension; E86.1 Hypovolemia
CPT/HCPCS: 31720; 36415; 71045-TC; 80048-TC; 83735-TC; 84100-TC; 84703-TC; 85025-TC; 94002-TC; 94003-TC; 94760-TC; 94762-TC; 94799-TC; A4623; G0378; J0133; J1650; J1953; J7030; J7050; J7060; J8597

== ENCOUNTER 2023-03-12 00:22 | Inpatient (IN) | payer BC ==
[~2023-03-12] VITALS: Ht 167.6 cm; Wt 79.4 kg
[2023-03-12] MEDS ORDERED: AZITHROMYCIN 500 MG in IV D5W 250 ML IV ONE (01:00)
[2023-03-12] MEDS ORDERED: CEFTRIAXONE 1GM BAG (ER ONLY) 50 ML IV ONE ×2 (01:00→01:15)
[2023-03-12 01:23] LABS: BASOPHILS # (AUTO) 0.2 K/uL (0.0-0.2); BASOPHILS % (AUTO) 1.9 % (0.0-2.0); EOSINOPHILS # (AUTO) 0.1 K/uL (0.0-0.7); EOSINOPHILS % (AUTO) 0.5 % (0.0-6.0); HEMATOCRIT 33 % (33-45); HEMOGLOBIN 10.4 g/dL (11.5-14.8); LYMPHOCYTES # (AUTO) 0.7 K/uL (0.8-4.8); LYMPHOCYTES % (AUTO) 6.3 % (20.0-44.0); MEAN CORPUSCULAR HEMOGLOBIN 28 PG (26.0-33.0); MEAN CORPUSCULAR HGB CONC 32 g/dl (31.0-36.0); MEAN CORPUSCULAR VOLUME 87 fL (82-100); MONOCYTES # (AUTO) 0.6 K/uL (0.1-1.30); MONOCYTES % (AUTO) 5.5 % (2.0-12.0); NEUTROPHILS # (AUTO) 9.5 K/uL (1.8-8.9); NEUTROPHILS % (AUTO) 85.8 % (43.0-81.0); PLATELET COUNT (AUTO) 259 K/uL (150-450); RED BLOOD CELL COUNT(AUTO) 3.76 MIL/uL (4.0-5.2)
[2023-03-12 01:31] LABS: CALCIUM, SERUM 10.8 mg/dL (8.5-10.1); CARBON DIOXIDE 34 mmol/L (21-32); CHLORIDE 94 mmol/L (98-107); CREATININE 0.5 mg/dL (0.6-1.3); GLUCOSE 197 mg/dL (74-106); POTASSIUM 3.8 mmol/L (3.5-5.1); SODIUM SERUM 133 mmol/L (136-145); UREA NITROGEN, BLOOD 15 mg/dL (7-18)
[2023-03-12 01:36] LABS: INR 1.19 (0.91-1.10); PARTIAL THROMBOPLASTIN TIME 40.1 SEC (24.3-34.3); PROTHROMBIN TIME 12.5 SECS (9.2-11.1)
[2023-03-12 01:37] LABS: ALANINE AMINOTRANSFERASE 226 U/L (12-78); ALBUMIN 2.3 g/dL (3.4-5.0); ALKALINE PHOSPHATASE 401 U/L (46-116); ASPARTATE AMINOTRANSFERASE 145 U/L (15-37); BILIRUBIN,DIRECT 0.2 mg/dL (0.0-0.2); BILIRUBIN,TOTAL 0.6 mg/dL (0.2-1.0); TOTAL PROTEIN, SERUM 8.4 g/dL (6.4-8.2)
[2023-03-12 01:39] LABS: LACTIC ACID 1.9 mmol/L (0.4-2.0)
[2023-03-12] MEDS ORDERED: AZITHROMYCIN 500 MG VIAL ONE (01:45)
[2023-03-12] MEDS ORDERED: ZOLPIDEM TARTRATE 5 MG TABLET PO PRN (03:30)
[2023-03-12] MEDS ORDERED: ONDANSETRON HCL/PF 4 MG/2 ML VIAL IVP PRN (03:30)
[2023-03-12] MEDS ORDERED: CLONIDINE HCL 0.1 MG TABLET GT PRN (03:30)
[2023-03-12] MEDS ORDERED: BISACODYL SUPP (10 MG) 10 MG/SUPP.RECT SUPP.RECT RC PRN (03:30)
[2023-03-12] MEDS ORDERED: ACETAMINOPHEN 325 MG TABLET PO PRN (03:30)
[2023-03-12] MEDS ORDERED: MAGNESIUM HYDROXIDE 30 ML UDC PO PRN (03:30)
[2023-03-12] MEDS ORDERED: MAG HYDROX/AL HYDROX/SIMETH 30 ML UDC PO PRN (03:30)
[2023-03-12] MEDS ORDERED: NA PHOS,M-B/NA PHOS,DI-BA 1 EA ENEMA RC PRN (03:30)
[2023-03-12] MEDS ORDERED: ACETAMINOPHEN 325 MG TABLET MC PRN (03:30)
[2023-03-12] MEDS ORDERED: IPRATROPIUM NEB FS 0.5 MG/2.5 ML AMPUL.NEB NEB PRN ×3 (03:30→08:00)
[2023-03-12] MEDS ORDERED: Z GUARD REMEDY 4 OZ OINT TP PRN (03:30)
[2023-03-12] MEDS ORDERED: JEVITY 1.2 CAL 1,000 ML BOTTLE GT SCH ×2 (03:30→13:00)
[2023-03-12] MEDS ORDERED: IV NS 0.9% 1,000 ML IV PRN (04:00)
[2023-03-12] MEDS ORDERED: PIPERACILLIN /TAZOBACTAM 3.375 G in IV D5W 50 ML IV SCH (06:00)
[2023-03-12] MEDS ORDERED: JEVITY 1.2 CAL 1,000 ML BOTTLE GT PRN ×2 (06:30)
[2023-03-12] MEDS ORDERED: IPRATROPIUM NEB FS 0.5 MG/2.5 ML AMPUL.NEB ONE (07:26)
[2023-03-12] MEDS: IPRATROPIUM NEB FS 0.5 MG/2.5 ML AMPUL.NEB NEB SCH ×5 (07:34→19:48)
[2023-03-12] MEDS ORDERED: ALBUTEROL FS 2.5 MG/0.5 ML VIAL.NEB NEB PRN (08:00)
[2023-03-12] MEDS ORDERED: LEVETIRACETAM SOL (5 ML) 100 MG/ML UDC GT SCH (09:00)
[2023-03-12] MEDS ORDERED: ENOXAPARIN SODIUM 40 MG/0.4 ML DISP.SYRIN SQ SCH (09:00)
[2023-03-12] MEDS: MIDODRINE HCL (5MG) 5 MG TABLET PO SCH ×4 (10:00→16:23)
[2023-03-12 10:15] VITALS: BP 146/79; TEMP 97.7; O2SAT 98
[2023-03-12] MEDS ORDERED: ACET-2605 GT (10:20)
[2023-03-12] MEDS ORDERED: MAGN400O6 GT (10:20)
[2023-03-12] MEDS: VANCOMYCIN 1 GM in IV D5W 250 ML IV SCH ×2 (10:20→15:43)
[2023-03-12] MEDS ORDERED: FURO-145 GT (10:20)
[2023-03-12] MEDS ORDERED: MIDO5TAB4 GT (10:20)
[2023-03-12] MEDS: FERROUS SULFATE UDC 300 MG/5 ML UDC GT SCH (10:20)
[2023-03-12] MEDS: CHOLECALCIFEROL 1,000 UNIT TABLET (VIT D3) GT SCH (10:22)
[2023-03-12] MEDS: PANTOPRAZOLE 40 MG/PACK PACK GT SCH (10:22)
[2023-03-12] MEDS: FLUDROCORTISONE 0.1 MG TABLET GT SCH (10:22)
[2023-03-12] MEDS: ENOXAPARIN SODIUM 40 MG/0.4 ML DISP.SYRIN SQ SCH (10:23)
[2023-03-12] MEDS: MULTIVIT W/MINERALS 1 TAB TABLET GT SCH (10:26)
[2023-03-12] MEDS: AMLODIPINE BESYLATE 5 MG TABLET GT SCH (10:26)
[2023-03-12] MEDS: CHLORHEXIDINE GLUCONATE 15 ML UDC MM SCH ×2 (10:27→16:22)
[2023-03-12] MEDS: IV NS 0.9% 1,000 ML IV PRN (10:37)
[2023-03-12] MEDS: PIPERACILLIN /TAZOBACTAM 3.375 G in IV D5W 100 ML IV SCH ×3 (11:21→22:46)
[2023-03-12 12:00] VITALS: BP 105/68; TEMP 98.4; O2SAT 98
[2023-03-12] MEDS ORDERED: MIDODRINE HCL (5MG) 5 MG TABLET GT PRN (13:00)
[2023-03-12] MEDS: ALBUTEROL FS 2.5 MG/0.5 ML VIAL.NEB NEB SCH ×2 (13:32→19:48)
[2023-03-12] MEDS: GLUCERNA 1.2 1,000 ML BOTTLE NG PRN (14:38)
[2023-03-12 16:00] VITALS: BP 100/60; TEMP 97.7; O2SAT 98
[2023-03-12 17:29] LABS: APPEARANCE,URINE CLEAR (CLEAR); BILIRUBIN,URINE NEGATIVE (NEGATIVE); BLOOD, URINE TRACE-INTA Ery/uL (NEGATIVE); COLOR,URINE YELLOW (YELLOW); KETONES,URINE NEGATIVE (NEGATIVE); LEUKOCYTE ESTERASE ,URINE NEGATIVE (NEGATIVE); NITRITE, URINE NEGATIVE (NEGATIVE); PROTEIN,URINE 2+ mg/dl (NEGATIVE); UGLUCOSE NEGATIVE (NEGATIVE)
[2023-03-12 17:50] LABS: ADD URINE CULTURE NO; BACTERIA,URINE None seen /HPF (None Seen); WBC,URINE 0-2 /HPF (0-3)
[2023-03-12] MEDS: NEOMY SULF/BACITRAC ZN/POLY 15 GM TUBE TP SCH (19:03)
[2023-03-12 19:20] VITALS: BP 130/62; TEMP 98.9; O2SAT 100
[2023-03-12] MEDS ORDERED: MAG HYDROX/AL HYDROX/SIMETH 30 ML UDC GT PRN (20:20)
[2023-03-12] MEDS ORDERED: MAGNESIUM HYDROXIDE 30 ML UDC GT PRN (20:20)
[2023-03-12] MEDS: LEVETIRACETAM SOL (5 ML) 100 MG/ML UDC GT SCH (20:26)
[2023-03-12] MEDS ORDERED: ACETAMINOPHEN 650 MG/20.3 ML UDC GT PRN (20:30)
[2023-03-13] VITALS: BP 120/60; TEMP 99.1; O2SAT 98
[2023-03-13] MEDS: VANCOMYCIN 1 GM in IV D5W 250 ML IV SCH ×2 (00:52→07:53)
[2023-03-13] MEDS: IV NS 0.9% 1,000 ML IV PRN ×2 (01:08→20:23)
[2023-03-13] MEDS: IPRATROPIUM NEB FS 0.5 MG/2.5 ML AMPUL.NEB NEB SCH ×7 (01:30→19:57)
[2023-03-13] MEDS: ALBUTEROL FS 2.5 MG/0.5 ML VIAL.NEB NEB SCH ×4 (01:46→19:57)
[2023-03-13 04:00] VITALS: BP 119/60; TEMP 99.2; O2SAT 97
[2023-03-13] MEDS: PIPERACILLIN /TAZOBACTAM 3.375 G in IV D5W 100 ML IV SCH ×3 (06:23→22:49)
[2023-03-13 06:47] LABS: CALCIUM, SERUM 8.1 mg/dL (8.5-10.1); CREATININE 0.4 mg/dL (0.6-1.3); MAGNESIUM 1.6 mg/dL (1.8-2.4); PHOSPHORUS 1.8 mg/dL (2.5-4.9)
[2023-03-13 07:44] LABS: POTASSIUM 2.6 mmol/L (3.5-5.1)
[2023-03-13 08:00] VITALS: BP 113/66; TEMP 98.8; O2SAT 99
[2023-03-13 08:02] LABS: BASOPHILS # (AUTO) 0.1 K/uL (0.0-0.2); BASOPHILS % (AUTO) 0.7 % (0.0-2.0); EOSINOPHILS # (AUTO) 0.3 K/uL (0.0-0.7); EOSINOPHILS % (AUTO) 2.7 % (0.0-6.0); HEMATOCRIT 24 % (33-45); HEMOGLOBIN 7.8 g/dL (11.5-14.8); LYMPHOCYTES # (AUTO) 0.8 K/uL (0.8-4.8); LYMPHOCYTES % (AUTO) 8.8 % (20.0-44.0); MEAN CORPUSCULAR HEMOGLOBIN 28 PG (26.0-33.0); MEAN CORPUSCULAR HGB CONC 33 g/dl (31.0-36.0); MEAN CORPUSCULAR VOLUME 86 fL (82-100); MONOCYTES # (AUTO) 0.5 K/uL (0.1-1.30); MONOCYTES % (AUTO) 5.6 % (2.0-12.0); NEUTROPHILS # (AUTO) 7.8 K/uL (1.8-8.9); NEUTROPHILS % (AUTO) 82.2 % (43.0-81.0); PLATELET COUNT (AUTO) 189 K/uL (150-450); RED BLOOD CELL COUNT(AUTO) 2.78 MIL/uL (4.0-5.2); RED CELL DISTRIBUTION WIDTH 16.3 % (11.5-15.0); WHITE BLOOD COUNT (AUTO) 9.5 K/uL (4.3-11.0)
[2023-03-13] MEDS: ENOXAPARIN SODIUM 40 MG/0.4 ML DISP.SYRIN SQ SCH (08:16)
[2023-03-13] MEDS: FERROUS SULFATE UDC 300 MG/5 ML UDC GT SCH (08:16)
[2023-03-13] MEDS: DOCUSATE SODIUM LIQ 100 MG/10 ML UDC GT SCH (08:16)
[2023-03-13] MEDS: MULTIVIT W/MINERALS 1 TAB TABLET GT SCH (08:17)
[2023-03-13] MEDS: LEVETIRACETAM SOL (5 ML) 100 MG/ML UDC GT SCH ×2 (08:17→21:10)
[2023-03-13] MEDS: FLUDROCORTISONE 0.1 MG TABLET GT SCH (08:17)
[2023-03-13] MEDS: CHOLECALCIFEROL 1,000 UNIT TABLET (VIT D3) GT SCH (08:17)
[2023-03-13] MEDS: CHLORHEXIDINE GLUCONATE 15 ML UDC MM SCH ×2 (08:17→16:42)
[2023-03-13] MEDS: PANTOPRAZOLE 40 MG/PACK PACK GT SCH (08:17)
[2023-03-13] MEDS: BACITRACIN ZINC OINT (15 GM) 15 GM TUBE TP SCH ×2 (08:19→16:42)
[2023-03-13] MEDS: NEOMY SULF/BACITRAC ZN/POLY 15 GM TUBE TP SCH (08:20)
[2023-03-13] MEDS: AMLODIPINE BESYLATE 5 MG TABLET GT SCH (08:21)
[2023-03-13] MEDS: MIDODRINE HCL (5MG) 5 MG TABLET GT SCH ×3 (08:26→16:43)
[2023-03-13] MEDS ORDERED: POTASSIUM CHLORIDE 20 MEQ POWDER PACKET GT ONE (09:30)
[2023-03-13] MEDS ORDERED: POTASSIUM CHLORIDE 10 MEQ/50 ML PREMIXED IVPB FOR PERIPHERAL LINE IV SCH (10:00)
[2023-03-13] MEDS: POTASSIUM CHLORIDE 20 MEQ POWDER PACKET NG SCH ×5 (10:07→14:06)
[2023-03-13] MEDS: Magnesium 1GM/D5W 100ML PREMIX 100 ML IV SCH ×2 (10:07→11:08)
[2023-03-13] MEDS ORDERED: POTASSIUM CHLORIDE 20 MEQ POWDER PACKET GT SCH (11:30)
[2023-03-13 12:55] LABS: THYROID STIMULATING HORMONE 1.233 uIU/mL (0.358-3.74)
[2023-03-13] MEDS: VANCOMYCIN 0.75 GM in IV D5W 250 ML IV SCH ×2 (13:03→21:09)
[2023-03-13] MEDS ORDERED: NEUTRA PHOS 1 POWD.PACKET NG ONE (16:00)
[2023-03-13 16:06] VITALS: BP 107/67; TEMP 98.6; O2SAT 100
[2023-03-13 20:00] VITALS: BP 112/69; TEMP 97.3; O2SAT 99
[2023-03-13] MEDS: GLUCERNA 1.2 1,000 ML BOTTLE NG PRN (22:49)
[2023-03-14] VITALS: BP 115/60; TEMP 97.6; O2SAT 98
[2023-03-14] MEDS: IPRATROPIUM NEB FS 0.5 MG/2.5 ML AMPUL.NEB NEB SCH ×4 (01:56→20:03)
[2023-03-14] MEDS: ALBUTEROL FS 2.5 MG/0.5 ML VIAL.NEB NEB SCH ×4 (01:56→20:03)
[2023-03-14 04:00] VITALS: BP 107/61; TEMP 97.5; O2SAT 99
[2023-03-14] MEDS: VANCOMYCIN 0.75 GM in IV D5W 250 ML IV SCH ×3 (04:18→21:11)
[2023-03-14] MEDS: PIPERACILLIN /TAZOBACTAM 3.375 G in IV D5W 100 ML IV SCH ×3 (06:26→23:11)
[2023-03-14 06:40] LABS: BASOPHILS % (AUTO) 0.3 % (0.0-2.0); EOSINOPHILS # (AUTO) 0.3 K/uL (0.0-0.7); EOSINOPHILS % (AUTO) 3.4 % (0.0-6.0); HEMATOCRIT 24 % (33-45); HEMOGLOBIN 7.9 g/dL (11.5-14.8); LYMPHOCYTES % (AUTO) 12.2 % (20.0-44.0); MEAN CORPUSCULAR HEMOGLOBIN 28 PG (26.0-33.0); MEAN CORPUSCULAR HGB CONC 33 g/dl (31.0-36.0); MEAN CORPUSCULAR VOLUME 86 fL (82-100); MONOCYTES # (AUTO) 0.5 K/uL (0.1-1.30); MONOCYTES % (AUTO) 6.3 % (2.0-12.0); NEUTROPHILS # (AUTO) 6.3 K/uL (1.8-8.9); NEUTROPHILS % (AUTO) 77.8 % (43.0-81.0); PLATELET COUNT (AUTO) 181 K/uL (150-450); RED BLOOD CELL COUNT(AUTO) 2.79 MIL/uL (4.0-5.2); RED CELL DISTRIBUTION WIDTH 16.6 % (11.5-15.0); WHITE BLOOD COUNT (AUTO) 8.1 K/uL (4.3-11.0)
[2023-03-14 06:53] LABS: ALBUMIN 1.7 g/dL (3.4-5.0); BILIRUBIN,DIRECT 0.2 mg/dL (0.0-0.2); BILIRUBIN,TOTAL 0.4 mg/dL (0.2-1.0); CALCIUM, SERUM 9.5 mg/dL (8.5-10.1); CREATININE 0.4 mg/dL (0.6-1.3); MAGNESIUM 1.7 mg/dL (1.8-2.4); PHOSPHORUS 3.4 mg/dL (2.5-4.9); POTASSIUM 3.5 mmol/L (3.5-5.1); TOTAL PROTEIN, SERUM 6.7 g/dL (6.4-8.2)
[2023-03-14] MEDS: ENOXAPARIN SODIUM 40 MG/0.4 ML DISP.SYRIN SQ SCH (09:00)
[2023-03-14 09:07] LABS: FOLIC ACID 16.7 ng/mL (>3.0)
[2023-03-14] MEDS: CHLORHEXIDINE GLUCONATE 15 ML UDC MM SCH ×2 (09:07→16:27)
[2023-03-14] MEDS: DOCUSATE SODIUM LIQ 100 MG/10 ML UDC GT SCH (09:08)
[2023-03-14] MEDS: FERROUS SULFATE UDC 300 MG/5 ML UDC GT SCH (09:08)
[2023-03-14] MEDS: LEVETIRACETAM SOL (5 ML) 100 MG/ML UDC GT SCH ×2 (09:08→21:11)
[2023-03-14] MEDS: MULTIVIT W/MINERALS 1 TAB TABLET GT SCH (09:09)
[2023-03-14] MEDS: CHOLECALCIFEROL 1,000 UNIT TABLET (VIT D3) GT SCH (09:09)
[2023-03-14] MEDS: FLUDROCORTISONE 0.1 MG TABLET GT SCH (09:09)
[2023-03-14] MEDS: PANTOPRAZOLE 40 MG/PACK PACK GT SCH (09:09)
[2023-03-14] MEDS: MIDODRINE HCL (5MG) 5 MG TABLET GT SCH ×3 (09:10→16:28)
[2023-03-14] MEDS: AMLODIPINE BESYLATE 5 MG TABLET GT SCH (09:10)
[2023-03-14] MEDS: BACITRACIN ZINC OINT (15 GM) 15 GM TUBE TP SCH ×2 (09:38→16:27)
[2023-03-14] MEDS: IV NS 0.9% 1,000 ML IV PRN (12:19)
[2023-03-14] MEDS ORDERED: MAGNESIUM OXIDE 400 MG TABLET GT ONE (12:30)
[2023-03-14] MEDS: GLUCERNA 1.2 1,000 ML BOTTLE NG PRN (16:42)
[2023-03-14] MEDS ORDERED: DEXTROSE 50%-WATER 50 ML DISP.SYRIN IV PRN (22:30)
[2023-03-14] MEDS: BLOOD SUGAR DIAGNOSTIC 1 EACH STRIP IN SCH (23:12)
[2023-03-14] MEDS: INSULIN REGULAR, HUMAN 100 UNIT/ML 3 ML VIAL SQ PRN (23:26)
[2023-03-15] MEDS ORDERED: INSULIN REGULAR, HUMAN 100 UNIT/ML 10 ML VIAL SQ SCH
[2023-03-15] MEDS: ALBUTEROL FS 2.5 MG/0.5 ML VIAL.NEB NEB SCH ×4 (00:40→20:28)
[2023-03-15] MEDS: IPRATROPIUM NEB FS 0.5 MG/2.5 ML AMPUL.NEB NEB SCH ×4 (00:40→20:28)
[2023-03-15] MEDS: VANCOMYCIN 0.75 GM in IV D5W 250 ML IV SCH ×3 (04:27→21:31)
[2023-03-15] MEDS: BLOOD SUGAR DIAGNOSTIC 1 EACH STRIP IN SCH ×4 (05:00→23:12)
[2023-03-15] MEDS: INSULIN REGULAR, HUMAN 100 UNIT/ML 3 ML VIAL SQ PRN ×2 (05:01→23:13)
[2023-03-15 05:45] LABS: BASOPHILS # (AUTO) 0.1 K/uL (0.0-0.2); EOSINOPHILS # (AUTO) 0.2 K/uL (0.0-0.7); EOSINOPHILS % (AUTO) 2.8 % (0.0-6.0); HEMATOCRIT 23 % (33-45); HEMOGLOBIN 7.7 g/dL (11.5-14.8); LYMPHOCYTES # (AUTO) 0.9 K/uL (0.8-4.8); MEAN CORPUSCULAR HEMOGLOBIN 28 PG (26.0-33.0); MEAN CORPUSCULAR HGB CONC 33 g/dl (31.0-36.0); MEAN CORPUSCULAR VOLUME 87 fL (82-100); MONOCYTES # (AUTO) 0.5 K/uL (0.1-1.30); MONOCYTES % (AUTO) 5.8 % (2.0-12.0); NEUTROPHILS # (AUTO) 6.5 K/uL (1.8-8.9); NEUTROPHILS % (AUTO) 79.4 % (43.0-81.0); PLATELET COUNT (AUTO) 193 K/uL (150-450); RED BLOOD CELL COUNT(AUTO) 2.71 MIL/uL (4.0-5.2); RED CELL DISTRIBUTION WIDTH 16.7 % (11.5-15.0); WHITE BLOOD COUNT (AUTO) 8.2 K/uL (4.3-11.0)
[2023-03-15 06:07] LABS: BAND % (MANUAL) 1 % (0.0-5.0); EOSINOPHILS % (MANUAL) 7 % (0-4); LYMPHOCYTES % (MANUAL) 8 % (16-48); MONOCYTES % (MANUAL) 5 % (0-11.0); NEUTROPHILS % (MANUAL) 79 (42-76); PLATELET ESTIMATE ADEQUATE
[2023-03-15] MEDS: PIPERACILLIN /TAZOBACTAM 3.375 G in IV D5W 100 ML IV SCH ×3 (06:08→23:12)
[2023-03-15 07:06] LABS: ALBUMIN 1.7 g/dL (3.4-5.0); BILIRUBIN,TOTAL 0.3 mg/dL (0.2-1.0); CALCIUM, SERUM 9.3 mg/dL (8.5-10.1); CREATININE 0.4 mg/dL (0.6-1.3); MAGNESIUM 1.6 mg/dL (1.8-2.4); PHOSPHORUS 3.6 mg/dL (2.5-4.9); POTASSIUM 3.4 mmol/L (3.5-5.1); TOTAL PROTEIN, SERUM 6.5 g/dL (6.4-8.2)
[2023-03-15 08:00] VITALS: BP 123/80; TEMP 97.2; O2SAT 98
[2023-03-15] MEDS: FAMOTIDINE (20 MG) 20 MG TABLET GT SCH (08:46)
[2023-03-15] MEDS: CHLORHEXIDINE GLUCONATE 15 ML UDC MM SCH ×2 (08:46→17:34)
[2023-03-15] MEDS: FERROUS SULFATE UDC 300 MG/5 ML UDC GT SCH (08:46)
[2023-03-15] MEDS: DOCUSATE SODIUM LIQ 100 MG/10 ML UDC GT SCH (08:46)
[2023-03-15] MEDS: LEVETIRACETAM SOL (5 ML) 100 MG/ML UDC GT SCH ×2 (08:47→21:31)
[2023-03-15] MEDS: FLUDROCORTISONE 0.1 MG TABLET GT SCH (08:47)
[2023-03-15] MEDS: CHOLECALCIFEROL 1,000 UNIT TABLET (VIT D3) GT SCH (08:47)
[2023-03-15] MEDS: MIDODRINE HCL (5MG) 5 MG TABLET GT SCH ×3 (08:48→17:38)
[2023-03-15] MEDS: MULTIVIT W/MINERALS 1 TAB TABLET GT SCH (08:48)
[2023-03-15] MEDS: AMLODIPINE BESYLATE 5 MG TABLET GT SCH (08:48)
[2023-03-15] MEDS: ENOXAPARIN SODIUM 40 MG/0.4 ML DISP.SYRIN SQ SCH (09:00)
[2023-03-15] MEDS: IV NS 0.9% 1,000 ML IV PRN (09:10)
[2023-03-15] MEDS: BACITRACIN ZINC OINT (15 GM) 15 GM TUBE TP SCH ×2 (09:10→17:34)
[2023-03-15] MEDS ORDERED: POTASSIUM CHLORIDE 20 MEQ POWDER PACKET GT SCH (10:00)
[2023-03-15] MEDS: Magnesium 1GM/D5W 100ML PREMIX 100 ML IV SCH ×2 (10:39→11:44)
[2023-03-15 12:00] VITALS: BP 107/75; TEMP 97.5; O2SAT 100
[2023-03-15] MEDS ORDERED: MAGNESIUM OXIDE 400 MG TABLET PO ONE ×2 (12:00→12:30)
[2023-03-15] MEDS: GLUCERNA 1.2 1,000 ML BOTTLE NG PRN (15:12)
[2023-03-15 16:00] VITALS: BP 114/83; TEMP 97.3; O2SAT 98
[2023-03-15 20:00] VITALS: BP 129/73; TEMP 97.3; O2SAT 94
[2023-03-15] MEDS ORDERED: POLYETHYLENE GLYCOL 3350 17 GM POWD.PACK PO SCH (22:00)
[2023-03-16] VITALS: BP 115/75; TEMP 97.5; O2SAT 95
[2023-03-16] MEDS: ALBUTEROL FS 2.5 MG/0.5 ML VIAL.NEB NEB SCH ×4 (02:20→19:36)
[2023-03-16] MEDS: IPRATROPIUM NEB FS 0.5 MG/2.5 ML AMPUL.NEB NEB SCH ×4 (02:20→19:36)
[2023-03-16] MEDS: IV NS 0.9% 1,000 ML IV PRN (03:49)
[2023-03-16 04:00] VITALS: BP 125/74; TEMP 97.5; O2SAT 96
[2023-03-16] MEDS: VANCOMYCIN 0.75 GM in IV D5W 250 ML IV SCH ×3 (05:23→21:02)
[2023-03-16] MEDS: BLOOD SUGAR DIAGNOSTIC 1 EACH STRIP IN SCH ×4 (05:33→23:26)
[2023-03-16] MEDS: INSULIN REGULAR, HUMAN 100 UNIT/ML 3 ML VIAL SQ PRN ×4 (05:34→23:29)
[2023-03-16 05:57] LABS: BASOPHILS # (AUTO) 0.1 K/uL (0.0-0.2); EOSINOPHILS # (AUTO) 0.2 K/uL (0.0-0.7); HEMATOCRIT 25 % (33-45); HEMOGLOBIN 8.1 g/dL (11.5-14.8); LYMPHOCYTES # (AUTO) 1.1 K/uL (0.8-4.8); LYMPHOCYTES % (AUTO) 11.7 % (20.0-44.0); MEAN CORPUSCULAR HEMOGLOBIN 28 PG (26.0-33.0); MEAN CORPUSCULAR HGB CONC 32 g/dl (31.0-36.0); MEAN CORPUSCULAR VOLUME 86 fL (82-100); MONOCYTES # (AUTO) 0.7 K/uL (0.1-1.30); MONOCYTES % (AUTO) 6.7 % (2.0-12.0); NEUTROPHILS # (AUTO) 7.7 K/uL (1.8-8.9); NEUTROPHILS % (AUTO) 78.6 % (43.0-81.0); PLATELET COUNT (AUTO) 228 K/uL (150-450); RED BLOOD CELL COUNT(AUTO) 2.91 MIL/uL (4.0-5.2); RED CELL DISTRIBUTION WIDTH 16.5 % (11.5-15.0); WHITE BLOOD COUNT (AUTO) 9.8 K/uL (4.3-11.0)
[2023-03-16 06:10] LABS: CALCIUM, SERUM 9.2 mg/dL (8.5-10.1); CREATININE 0.4 mg/dL (0.6-1.3); PHOSPHORUS 4.2 mg/dL (2.5-4.9)
[2023-03-16] MEDS: PIPERACILLIN /TAZOBACTAM 3.375 G in IV D5W 100 ML IV SCH ×3 (06:26→23:04)
[2023-03-16] MEDS: CHLORHEXIDINE GLUCONATE 15 ML UDC MM SCH ×2 (08:03→16:30)
[2023-03-16] MEDS: FERROUS SULFATE UDC 300 MG/5 ML UDC GT SCH (08:03)
[2023-03-16] MEDS: DOCUSATE SODIUM LIQ 100 MG/10 ML UDC GT SCH (08:03)
[2023-03-16] MEDS: MULTIVIT W/MINERALS 1 TAB TABLET GT SCH (08:04)
[2023-03-16] MEDS: CHOLECALCIFEROL 1,000 UNIT TABLET (VIT D3) GT SCH (08:04)
[2023-03-16] MEDS: LEVETIRACETAM SOL (5 ML) 100 MG/ML UDC GT SCH ×2 (08:04→21:02)
[2023-03-16] MEDS: FLUDROCORTISONE 0.1 MG TABLET GT SCH (08:04)
[2023-03-16] MEDS: FAMOTIDINE (20 MG) 20 MG TABLET GT SCH (08:05)
[2023-03-16] MEDS: ENOXAPARIN SODIUM 40 MG/0.4 ML DISP.SYRIN SQ SCH (08:06)
[2023-03-16] MEDS: BACITRACIN ZINC OINT (15 GM) 15 GM TUBE TP SCH ×2 (08:08→16:31)
[2023-03-16] MEDS: MIDODRINE HCL (5MG) 5 MG TABLET GT SCH ×3 (08:09→16:31)
[2023-03-16] MEDS: AMLODIPINE BESYLATE 5 MG TABLET GT SCH (08:10)
[2023-03-16 09:30] VITALS: BP 112/74; TEMP 97.8; O2SAT 96
[2023-03-16] MEDS: GLUCERNA 1.2 1,000 ML BOTTLE NG PRN (11:58)
[2023-03-16 12:09] LABS: ANISOCYTOSIS 1+; EOSINOPHILS % (MANUAL) 3 % (0-4); HYPOCHROMASIA 1+; LYMPHOCYTES % (MANUAL) 13 % (16-48); MONOCYTES % (MANUAL) 6 % (0-11.0); NEUTROPHILS % (MANUAL) 78 (42-76); PLATELET ESTIMATE ADEQUATE
[2023-03-16 13:00] VITALS: BP 117/73; TEMP 98.7; O2SAT 95
[2023-03-16 16:00] VITALS: BP 125/78; TEMP 97.7; O2SAT 94
[2023-03-16 20:00] VITALS: BP 123/86; TEMP 97.2; O2SAT 99
[2023-03-16] MEDS: POLYETHYLENE GLYCOL 3350 17 GM POWD.PACK GT SCH (21:03)
[2023-03-17 00:08] VITALS: BP 115/75; TEMP 97.6; O2SAT 97
[2023-03-17] MEDS: IPRATROPIUM NEB FS 0.5 MG/2.5 ML AMPUL.NEB NEB SCH ×4 (01:26→20:28)
[2023-03-17] MEDS: ALBUTEROL FS 2.5 MG/0.5 ML VIAL.NEB NEB SCH ×4 (01:26→20:28)
[2023-03-17 04:00] VITALS: BP 123/76; TEMP 97.7; O2SAT 92
[2023-03-17] MEDS: VANCOMYCIN 0.75 GM in IV D5W 250 ML IV SCH ×3 (04:19→20:15)
[2023-03-17] MEDS: GLUCERNA 1.2 1,000 ML BOTTLE NG PRN (06:02)
[2023-03-17] MEDS: PIPERACILLIN /TAZOBACTAM 3.375 G in IV D5W 100 ML IV SCH ×3 (06:04→22:04)
[2023-03-17] MEDS: BLOOD SUGAR DIAGNOSTIC 1 EACH STRIP IN SCH ×4 (06:34→23:48)
[2023-03-17 06:36] LABS: CALCIUM, SERUM 9.1 mg/dL (8.5-10.1); CREATININE 0.4 mg/dL (0.6-1.3); POTASSIUM 3.4 mmol/L (3.5-5.1)
[2023-03-17] MEDS: INSULIN REGULAR, HUMAN 100 UNIT/ML 3 ML VIAL SQ PRN ×4 (06:39→23:53)
[2023-03-17 08:00] VITALS: BP 114/77; TEMP 97.9; O2SAT 100
[2023-03-17] MEDS: CHLORHEXIDINE GLUCONATE 15 ML UDC MM SCH ×2 (08:36→16:38)
[2023-03-17] MEDS: FERROUS SULFATE UDC 300 MG/5 ML UDC GT SCH (08:36)
[2023-03-17] MEDS: DOCUSATE SODIUM LIQ 100 MG/10 ML UDC GT SCH (08:36)
[2023-03-17] MEDS: MIDODRINE HCL (5MG) 5 MG TABLET GT SCH ×3 (08:37→16:38)
[2023-03-17] MEDS: MULTIVIT W/MINERALS 1 TAB TABLET GT SCH (08:37)
[2023-03-17] MEDS: FAMOTIDINE (20 MG) 20 MG TABLET GT SCH (08:38)
[2023-03-17] MEDS: CHOLECALCIFEROL 1,000 UNIT TABLET (VIT D3) GT SCH (08:38)
[2023-03-17] MEDS: LEVETIRACETAM SOL (5 ML) 100 MG/ML UDC GT SCH ×2 (08:38→20:17)
[2023-03-17] MEDS: FLUDROCORTISONE 0.1 MG TABLET GT SCH (08:39)
[2023-03-17] MEDS: BACITRACIN ZINC OINT (15 GM) 15 GM TUBE TP SCH ×2 (09:00→16:39)
[2023-03-17] MEDS: ENOXAPARIN SODIUM 40 MG/0.4 ML DISP.SYRIN SQ SCH (09:27)
[2023-03-17] MEDS ORDERED: POTASSIUM CHLORIDE 20 MEQ POWDER PACKET NG SCH (11:00)
[2023-03-17 12:00] VITALS: BP 108/71; TEMP 97.5; O2SAT 100
[2023-03-17] MEDS: ACETYLCYSTEINE 10% SOLN 400 MG/4 ML VIAL NEB SCH (15:30)
[2023-03-17 16:00] VITALS: BP 110/72; TEMP 97.4; O2SAT 97
[2023-03-17 20:00] VITALS: BP 111/70; TEMP 97.7; O2SAT 98
[2023-03-17] MEDS: POLYETHYLENE GLYCOL 3350 17 GM POWD.PACK GT SCH (21:04)
[2023-03-18] VITALS: BP 113/79; TEMP 97.6; O2SAT 98
[2023-03-18] MEDS: ACETYLCYSTEINE 10% SOLN 400 MG/4 ML VIAL NEB SCH ×4 (00:01→23:30)
[2023-03-18] MEDS: GLUCERNA 1.2 1,000 ML BOTTLE NG PRN (00:42)
[2023-03-18] MEDS: IPRATROPIUM NEB FS 0.5 MG/2.5 ML AMPUL.NEB NEB SCH ×4 (02:26→20:13)
[2023-03-18] MEDS: ALBUTEROL FS 2.5 MG/0.5 ML VIAL.NEB NEB SCH ×4 (02:26→20:13)
[2023-03-18 04:00] VITALS: BP 125/74; TEMP 97.7; O2SAT 96
[2023-03-18] MEDS: VANCOMYCIN 0.75 GM in IV D5W 250 ML IV SCH ×3 (04:27→20:08)
[2023-03-18] MEDS: BLOOD SUGAR DIAGNOSTIC 1 EACH STRIP IN SCH ×4 (05:17→23:23)
[2023-03-18] MEDS: INSULIN REGULAR, HUMAN 100 UNIT/ML 3 ML VIAL SQ PRN ×3 (05:23→23:24)
[2023-03-18 05:45] LABS: BASOPHILS % (AUTO) 0.2 % (0.0-2.0); EOSINOPHILS # (AUTO) 0.2 K/uL (0.0-0.7); EOSINOPHILS % (AUTO) 2.2 % (0.0-6.0); HEMATOCRIT 23 % (33-45); HEMOGLOBIN 7.7 g/dL (11.5-14.8); LYMPHOCYTES # (AUTO) 1.1 K/uL (0.8-4.8); LYMPHOCYTES % (AUTO) 10.4 % (20.0-44.0); MEAN CORPUSCULAR HEMOGLOBIN 28 PG (26.0-33.0); MEAN CORPUSCULAR HGB CONC 33 g/dl (31.0-36.0); MEAN CORPUSCULAR VOLUME 85 fL (82-100); MONOCYTES # (AUTO) 0.5 K/uL (0.1-1.30); MONOCYTES % (AUTO) 5.2 % (2.0-12.0); NEUTROPHILS # (AUTO) 8.5 K/uL (1.8-8.9); PLATELET COUNT (AUTO) 257 K/uL (150-450); RED BLOOD CELL COUNT(AUTO) 2.76 MIL/uL (4.0-5.2); WHITE BLOOD COUNT (AUTO) 10.3 K/uL (4.3-11.0)
[2023-03-18] MEDS: PIPERACILLIN /TAZOBACTAM 3.375 G in IV D5W 100 ML IV SCH ×3 (06:02→22:01)
[2023-03-18 06:17] LABS: CALCIUM, SERUM 9.4 mg/dL (8.5-10.1); CREATININE 0.4 mg/dL (0.6-1.3); PHOSPHORUS 4.3 mg/dL (2.5-4.9); POTASSIUM 3.4 mmol/L (3.5-5.1)
[2023-03-18 07:00] VITALS: BP 121/76; TEMP 94.2; O2SAT 97
[2023-03-18 08:19] LABS: EOSINOPHILS % (MANUAL) 1 % (0-4); LYMPHOCYTES % (MANUAL) 12 % (16-48); MONOCYTES % (MANUAL) 6 % (0-11.0); NEUTROPHILS % (MANUAL) 81 (42-76); PLATELET ESTIMATE ADEQUATE
[2023-03-18 08:20] LABS: ANISOCYTOSIS 1+
[2023-03-18 08:21] LABS: STOMATOCYTES 1+
[2023-03-18] MEDS: FLUDROCORTISONE 0.1 MG TABLET GT SCH (09:46)
[2023-03-18] MEDS: DOCUSATE SODIUM LIQ 100 MG/10 ML UDC GT SCH (09:46)
[2023-03-18] MEDS: LEVETIRACETAM SOL (5 ML) 100 MG/ML UDC GT SCH ×2 (09:46→21:10)
[2023-03-18] MEDS: FERROUS SULFATE UDC 300 MG/5 ML UDC GT SCH (09:46)
[2023-03-18] MEDS: CHOLECALCIFEROL 1,000 UNIT TABLET (VIT D3) GT SCH (09:46)
[2023-03-18] MEDS: FAMOTIDINE (20 MG) 20 MG TABLET GT SCH (09:46)
[2023-03-18] MEDS: MIDODRINE HCL (5MG) 5 MG TABLET GT SCH ×3 (09:47→17:51)
[2023-03-18] MEDS: MULTIVIT W/MINERALS 1 TAB TABLET GT SCH (09:47)
[2023-03-18] MEDS: CHLORHEXIDINE GLUCONATE 15 ML UDC MM SCH ×2 (09:48→17:09)
[2023-03-18] MEDS: ENOXAPARIN SODIUM 40 MG/0.4 ML DISP.SYRIN SQ SCH (09:50)
[2023-03-18] MEDS: BACITRACIN ZINC OINT (15 GM) 15 GM TUBE TP SCH ×2 (10:03→17:10)
[2023-03-18 12:00] VITALS: BP 90/57; TEMP 94.1; O2SAT 99
[2023-03-18] MEDS ORDERED: POTASSIUM CHLORIDE 20 MEQ TAB.PRT.SR PO ONE (12:30)
[2023-03-18 16:00] VITALS: BP 125/77; TEMP 97.6; O2SAT 99
[2023-03-18 20:00] VITALS: BP 134/80; TEMP 97.3; O2SAT 99
[2023-03-18] MEDS: POLYETHYLENE GLYCOL 3350 17 GM POWD.PACK GT SCH (21:10)
[2023-03-19 00:25] VITALS: BP 98/85; TEMP 98.9; O2SAT 95
[2023-03-19] MEDS: IPRATROPIUM NEB FS 0.5 MG/2.5 ML AMPUL.NEB NEB SCH ×4 (02:03→20:08)
[2023-03-19] MEDS: ALBUTEROL FS 2.5 MG/0.5 ML VIAL.NEB NEB SCH ×4 (02:03→20:08)
[2023-03-19 04:00] VITALS: BP 109/70; TEMP 97.7; O2SAT 95
[2023-03-19] MEDS: VANCOMYCIN 0.75 GM in IV D5W 250 ML IV SCH ×2 (04:13→12:15)
[2023-03-19] MEDS: BLOOD SUGAR DIAGNOSTIC 1 EACH STRIP IN SCH ×3 (05:08→17:24)
[2023-03-19] MEDS: INSULIN REGULAR, HUMAN 100 UNIT/ML 3 ML VIAL SQ PRN ×3 (05:10→17:25)
[2023-03-19] MEDS: GLUCERNA 1.2 1,000 ML BOTTLE NG PRN (05:49)
[2023-03-19 05:58] LABS: BASOPHILS # (AUTO) 0.1 K/uL (0.0-0.2); BASOPHILS % (AUTO) 0.6 % (0.0-2.0); EOSINOPHILS # (AUTO) 0.2 K/uL (0.0-0.7); EOSINOPHILS % (AUTO) 2.3 % (0.0-6.0); HEMATOCRIT 23 % (33-45); HEMOGLOBIN 7.7 g/dL (11.5-14.8); LYMPHOCYTES # (AUTO) 1.2 K/uL (0.8-4.8); MEAN CORPUSCULAR HEMOGLOBIN 29 PG (26.0-33.0); MEAN CORPUSCULAR HGB CONC 34 g/dl (31.0-36.0); MEAN CORPUSCULAR VOLUME 86 fL (82-100); MONOCYTES # (AUTO) 0.4 K/uL (0.1-1.30); MONOCYTES % (AUTO) 4.1 % (2.0-12.0); NEUTROPHILS # (AUTO) 7.6 K/uL (1.8-8.9); PLATELET COUNT (AUTO) 306 K/uL (150-450); RED BLOOD CELL COUNT(AUTO) 2.64 MIL/uL (4.0-5.2); RED CELL DISTRIBUTION WIDTH 16.2 % (11.5-15.0); WHITE BLOOD COUNT (AUTO) 9.5 K/uL (4.3-11.0)
[2023-03-19] MEDS: PIPERACILLIN /TAZOBACTAM 3.375 G in IV D5W 100 ML IV SCH ×3 (06:21→22:23)
[2023-03-19 06:45] LABS: CALCIUM, SERUM 9.4 mg/dL (8.5-10.1); CREATININE 0.5 mg/dL (0.6-1.3); MAGNESIUM 1.8 mg/dL (1.8-2.4); PHOSPHORUS 4.7 mg/dL (2.5-4.9); POTASSIUM 3.8 mmol/L (3.5-5.1)
[2023-03-19] MEDS: ACETYLCYSTEINE 10% SOLN 400 MG/4 ML VIAL NEB SCH ×3 (07:36→22:38)
[2023-03-19 08:00] VITALS: BP 127/79; TEMP 99; O2SAT 100
[2023-03-19 08:40] LABS: EOSINOPHILS % (MANUAL) 5 % (0-4); LYMPHOCYTES % (MANUAL) 16 % (16-48); MONOCYTES % (MANUAL) 7 % (0-11.0); NEUTROPHILS % (MANUAL) 72 (42-76); PLATELET ESTIMATE ADEQUATE
[2023-03-19] MEDS: MIDODRINE HCL (5MG) 5 MG TABLET GT SCH ×4 (09:00→18:29)
[2023-03-19] MEDS: DOCUSATE SODIUM LIQ 100 MG/10 ML UDC GT SCH (09:00)
[2023-03-19] MEDS: CHLORHEXIDINE GLUCONATE 15 ML UDC MM SCH ×2 (09:26→16:36)
[2023-03-19] MEDS: FERROUS SULFATE UDC 300 MG/5 ML UDC GT SCH (09:27)
[2023-03-19] MEDS: CHOLECALCIFEROL 1,000 UNIT TABLET (VIT D3) GT SCH (09:27)
[2023-03-19] MEDS: LEVETIRACETAM SOL (5 ML) 100 MG/ML UDC GT SCH ×2 (09:27→21:56)
[2023-03-19] MEDS: FAMOTIDINE (20 MG) 20 MG TABLET GT SCH (09:27)
[2023-03-19] MEDS: FLUDROCORTISONE 0.1 MG TABLET GT SCH (09:28)
[2023-03-19] MEDS: MULTIVIT W/MINERALS 1 TAB TABLET GT SCH (09:28)
[2023-03-19] MEDS: BACITRACIN ZINC OINT (15 GM) 15 GM TUBE TP SCH ×2 (09:30→17:23)
[2023-03-19] MEDS: ENOXAPARIN SODIUM 40 MG/0.4 ML DISP.SYRIN SQ SCH (09:38)
[2023-03-19 12:00] VITALS: BP 117/71; TEMP 99.5; O2SAT 100
[2023-03-19 16:00] VITALS: BP 128/74; TEMP 100.2; O2SAT 100
[2023-03-19 20:00] VITALS: BP 127/71; TEMP 99.3; O2SAT 94
[2023-03-19] MEDS: POLYETHYLENE GLYCOL 3350 17 GM POWD.PACK GT SCH (21:57)
[2023-03-20] VITALS: BP 120/78; TEMP 100.6; O2SAT 95
[2023-03-20] MEDS: BLOOD SUGAR DIAGNOSTIC 1 EACH STRIP IN SCH ×4 (00:33→17:27)
[2023-03-20] MEDS: INSULIN REGULAR, HUMAN 100 UNIT/ML 3 ML VIAL SQ PRN ×2 (00:37→11:34)
[2023-03-20] MEDS: ALBUTEROL FS 2.5 MG/0.5 ML VIAL.NEB NEB SCH ×4 (01:29→20:28)
[2023-03-20] MEDS: IPRATROPIUM NEB FS 0.5 MG/2.5 ML AMPUL.NEB NEB SCH ×4 (01:29→20:28)
[2023-03-20] MEDS ORDERED: ACETAMINOPHEN 325 MG TABLET MC PRN (02:00)
[2023-03-20 04:00] VITALS: BP 105/68; TEMP 98.6; O2SAT 98
[2023-03-20 05:45] LABS: BASOPHILS # (AUTO) 0.1 K/uL (0.0-0.2); BASOPHILS % (AUTO) 1.2 % (0.0-2.0); EOSINOPHILS # (AUTO) 0.2 K/uL (0.0-0.7); HEMATOCRIT 24 % (33-45); LYMPHOCYTES # (AUTO) 1.6 K/uL (0.8-4.8); LYMPHOCYTES % (AUTO) 16.8 % (20.0-44.0); MEAN CORPUSCULAR HEMOGLOBIN 29 PG (26.0-33.0); MEAN CORPUSCULAR HGB CONC 34 g/dl (31.0-36.0); MEAN CORPUSCULAR VOLUME 85 fL (82-100); MONOCYTES # (AUTO) 0.7 K/uL (0.1-1.30); MONOCYTES % (AUTO) 7.2 % (2.0-12.0); NEUTROPHILS % (AUTO) 72.8 % (43.0-81.0); PLATELET COUNT (AUTO) 431 K/uL (150-450); RED BLOOD CELL COUNT(AUTO) 2.79 MIL/uL (4.0-5.2); RED CELL DISTRIBUTION WIDTH 16.5 % (11.5-15.0); WHITE BLOOD COUNT (AUTO) 9.6 K/uL (4.3-11.0)
[2023-03-20 05:57] LABS: CALCIUM, SERUM 9.3 mg/dL (8.5-10.1); CREATININE 0.4 mg/dL (0.6-1.3); POTASSIUM 3.5 mmol/L (3.5-5.1)
[2023-03-20] MEDS: GLUCERNA 1.2 1,000 ML BOTTLE NG PRN (06:19)
[2023-03-20] MEDS: PIPERACILLIN /TAZOBACTAM 3.375 G in IV D5W 100 ML IV SCH ×3 (07:41→23:04)
[2023-03-20] MEDS: ACETYLCYSTEINE 10% SOLN 400 MG/4 ML VIAL NEB SCH ×3 (07:41→23:46)
[2023-03-20 08:00] VITALS: BP 129/77; TEMP 98.1; O2SAT 100
[2023-03-20] MEDS: DOCUSATE SODIUM LIQ 100 MG/10 ML UDC GT SCH (09:22)
[2023-03-20] MEDS: LEVETIRACETAM SOL (5 ML) 100 MG/ML UDC GT SCH ×2 (09:23→21:49)
[2023-03-20] MEDS: FERROUS SULFATE UDC 300 MG/5 ML UDC GT SCH (09:23)
[2023-03-20] MEDS: CHLORHEXIDINE GLUCONATE 15 ML UDC MM SCH ×2 (09:23→16:39)
[2023-03-20] MEDS: FLUDROCORTISONE 0.1 MG TABLET GT SCH (09:24)
[2023-03-20] MEDS: FAMOTIDINE (20 MG) 20 MG TABLET GT SCH (09:24)
[2023-03-20] MEDS: CHOLECALCIFEROL 1,000 UNIT TABLET (VIT D3) GT SCH (09:24)
[2023-03-20] MEDS: MIDODRINE HCL (5MG) 5 MG TABLET GT SCH ×3 (09:24→16:25)
[2023-03-20] MEDS: BACITRACIN ZINC OINT (15 GM) 15 GM TUBE TP SCH ×2 (09:25→16:39)
[2023-03-20] MEDS: MULTIVIT W/MINERALS 1 TAB TABLET GT SCH (09:25)
[2023-03-20] MEDS: ENOXAPARIN SODIUM 40 MG/0.4 ML DISP.SYRIN SQ SCH (09:33)
[2023-03-20] MEDS: VANCOMYCIN 1 GM in IV D5W 250ml IV SCH ×2 (11:29→21:49)
[2023-03-20 12:00] VITALS: BP 136/88; TEMP 97.7; O2SAT 100
[2023-03-20 13:43] LABS: PREGNANCY TEST URINE QUAL NEGATIVE (NEGATIVE)
[2023-03-20 16:00] VITALS: BP 139/90; TEMP 97.6; O2SAT 100
[2023-03-20 21:01] VITALS: BP 141/73; TEMP 98.9; O2SAT 97
[2023-03-20] MEDS: POLYETHYLENE GLYCOL 3350 17 GM POWD.PACK GT SCH (21:51)
[2023-03-21] MEDS: BLOOD SUGAR DIAGNOSTIC 1 EACH STRIP IN SCH ×3 (00:06→11:32)
[2023-03-21] MEDS: INSULIN REGULAR, HUMAN 100 UNIT/ML 3 ML VIAL SQ PRN ×3 (00:09→11:33)
[2023-03-21 01:04] VITALS: BP 125/60; TEMP 99; O2SAT 98
[2023-03-21] MEDS: IPRATROPIUM NEB FS 0.5 MG/2.5 ML AMPUL.NEB NEB SCH ×3 (01:57→14:00)
[2023-03-21] MEDS: ALBUTEROL FS 2.5 MG/0.5 ML VIAL.NEB NEB SCH ×3 (01:57→14:00)
[2023-03-21 05:24] VITALS: BP 108/61; TEMP 98.2; O2SAT 99
[2023-03-21] MEDS: GLUCERNA 1.2 1,000 ML BOTTLE NG PRN (05:26)
[2023-03-21 06:12] LABS: CALCIUM, SERUM 9.4 mg/dL (8.5-10.1); CREATININE 0.5 mg/dL (0.6-1.3); POTASSIUM 3.3 mmol/L (3.5-5.1)
[2023-03-21] MEDS: PIPERACILLIN /TAZOBACTAM 3.375 G in IV D5W 100 ML IV SCH (07:03)
[2023-03-21] MEDS: ACETYLCYSTEINE 10% SOLN 400 MG/4 ML VIAL NEB SCH (07:37)
[2023-03-21 08:00] VITALS: BP 106/66; TEMP 97.7; O2SAT 99
[2023-03-21] MEDS: ENOXAPARIN SODIUM 40 MG/0.4 ML DISP.SYRIN SQ SCH (08:27)
[2023-03-21] MEDS: FERROUS SULFATE UDC 300 MG/5 ML UDC GT SCH (08:27)
[2023-03-21] MEDS: CHOLECALCIFEROL 1,000 UNIT TABLET (VIT D3) GT SCH (08:27)
[2023-03-21] MEDS: LEVETIRACETAM SOL (5 ML) 100 MG/ML UDC GT SCH (08:28)
[2023-03-21] MEDS: CHLORHEXIDINE GLUCONATE 15 ML UDC MM SCH (08:29)
[2023-03-21] MEDS: DOCUSATE SODIUM LIQ 100 MG/10 ML UDC GT SCH (08:30)
[2023-03-21] MEDS: FLUDROCORTISONE 0.1 MG TABLET GT SCH (08:30)
[2023-03-21] MEDS: MULTIVIT W/MINERALS 1 TAB TABLET GT SCH (08:30)
[2023-03-21] MEDS: FAMOTIDINE (20 MG) 20 MG TABLET GT SCH (08:30)
[2023-03-21] MEDS: MIDODRINE HCL (5MG) 5 MG TABLET GT SCH ×2 (08:33→12:35)
[2023-03-21] MEDS: BACITRACIN ZINC OINT (15 GM) 15 GM TUBE TP SCH (08:34)
[2023-03-21] MEDS: VANCOMYCIN 1 GM in IV D5W 250ml IV SCH (09:01)
[2023-03-21] MEDS ORDERED: POTASSIUM CHLORIDE 20 MEQ POWDER PACKET NG SCH (10:30)
[2023-03-21] MEDS ORDERED: PIPE3.379 IV (11:24)
[2023-03-21] MEDS ORDERED: VANC1PLA9 IV (11:24)
[2023-03-21 12:35] VITALS: BP 124/81
== END 2023-03-21 15:30 | DRG 720 ==
LOC: ER 00:23 → TELE 06:06
PROVIDERS: ADMIT Internal Medicine; ATTEND Nurse Practitioner Acute Care
PROC: 5A1955Z Respiratory Ventilation, Greater than 96 Consecutive Hours (ICD-10-PCS; principal; 2023-03-12)
PROC: 05HF33Z Insertion of Infusion Device into Left Cephalic Vein, Percutaneous Approach (ICD-10-PCS; 2023-03-15)
DX: A40.1 Sepsis due to streptococcus, group B (principal); J96.20 Acute and chronic respiratory failure, unspecified whether with hypoxia or hypercapnia; J69.0 Pneumonitis due to inhalation of food and vomit; G93.41 Metabolic encephalopathy; J95.851 Ventilator associated pneumonia; R40.3 Persistent vegetative state; E87.1 Hypo-osmolality and hyponatremia; D63.8 Anemia in other chronic diseases classified elsewhere; L03.116 Cellulitis of left lower limb; S91.312A Laceration without foreign body, left foot, initial encounter; Z93.0 Tracheostomy status; G40.909 Epilepsy, unspecified, not intractable, without status epilepticus; Y84.8 Other medical procedures as the cause of abnormal reaction of the patient, or of later complication, without mention of misadventure at the time of the procedure; Y92.129 Unspecified place in nursing home as the place of occurrence of the external cause; Z87.820 Personal history of traumatic brain injury; Z98.2 Presence of cerebrospinal fluid drainage device; Z99.11 Dependence on respirator [ventilator] status; R13.10 Dysphagia, unspecified; M62.462 Contracture of muscle, left lower leg; M62.461 Contracture of muscle, right lower leg; X58.XXXA Exposure to other specified factors, initial encounter; Y92.9 Unspecified place or not applicable; R60.9 Edema, unspecified; I10 Essential (primary) hypertension; Z79.51 Long term (current) use of inhaled steroids; Z79.01 Long term (current) use of anticoagulants; Z79.899 Other long term (current) drug therapy; R74.01 Elevation of levels of liver transaminase levels; D68.59 Other primary thrombophilia; E83.52 Hypercalcemia; E86.1 Hypovolemia; E87.6 Hypokalemia; J98.11 Atelectasis; Z79.52 Long term (current) use of systemic steroids; J01.90 Acute sinusitis, unspecified; J90 Pleural effusion, not elsewhere classified; T17.990A Other foreign object in respiratory tract, part unspecified in causing asphyxiation, initial encounter; W44.F9XA Other object of natural or organic material, entering into or through a natural orifice, initial encounter; Y93.9 Activity, unspecified; B95.62 Methicillin resistant Staphylococcus aureus infection as the cause of diseases classified elsewhere
CPT/HCPCS: 31720; 36415; 70450-TC; 71045-TC; 71250-TC; 76700-TC; 80048-TC; 80053-TC; 80076-TC; 80202-TC; 81001; 82607-TC; 82728-TC; 82962-TC; 83540-TC; 83605-TC; 83735-TC; 83921; 84100-TC; 84439-TC; 84443-TC; 84484-TC; 84703-TC; 85025-TC; 85730-TC; 87040-TC; 87081-TC; 87086-TC; 87186-TC; 93307-TC; 93971-TC; 94002-TC; 94003-TC; 94760-TC; 94799-TC; 99082-TC; A4223; A4623; A7526; G0378; J0456; J0696; J1650; J1815; J1953; J2543; J3370; J3475; J7030; J7060

== ENCOUNTER 2023-05-17 14:01 | Inpatient (IN) | payer BC ==
[~2023-05-17] VITALS: Ht 167.6 cm; Wt 85.3 kg
[~2023-05-17 14:01] MED LIST changes: +ACET-2605 GT; -AMLO-212 GT; -AMOX-430 PO; -CLON0.1T GT; -ENOX40DI SQ; -FLUD0.1T3 GT; -IPRA0.2S9 NEB; +MAGN400O6 GT; -METO-295 GT; +MIDO5TAB4 GT; -MIDO5TAB4 PO; +PIPE3.379 IV; +VANC1PLA9 IV
[2023-05-17] MEDS ORDERED: LORAZEPAM INJ 2 MG/ML VIAL ONE ×2 (14:28→22:43)
[2023-05-17] MEDS ORDERED: LORAZEPAM INJ 2 MG/ML VIAL IVP ONE (14:30)
[2023-05-17] MEDS ORDERED: LEVETIRACETAM (500MG) 1,000 MG in IV NS 0.9% 90 ML IV SCH (14:30)
[2023-05-17 15:02] LABS: BASOPHILS # (AUTO) 0.1 K/uL (0.0-0.2); BASOPHILS % (AUTO) 0.6 % (0.0-2.0); EOSINOPHILS # (AUTO) 0.4 K/uL (0.0-0.7); HEMATOCRIT 35 % (33-45); HEMOGLOBIN 11.1 g/dL (11.5-14.8); LYMPHOCYTES # (AUTO) 2.9 K/uL (0.8-4.8); MEAN CORPUSCULAR HEMOGLOBIN 28 PG (26.0-33.0); MEAN CORPUSCULAR HGB CONC 32 g/dl (31.0-36.0); MEAN CORPUSCULAR VOLUME 87 fL (82-100); MONOCYTES # (AUTO) 0.7 K/uL (0.1-1.30); MONOCYTES % (AUTO) 5.6 % (2.0-12.0); NEUTROPHILS # (AUTO) 8.4 K/uL (1.8-8.9); NEUTROPHILS % (AUTO) 67.8 % (43.0-81.0); PLATELET COUNT (AUTO) 245 K/uL (150-450); RED BLOOD CELL COUNT(AUTO) 4.04 MIL/uL (4.0-5.2); RED CELL DISTRIBUTION WIDTH 15.5 % (11.5-15.0); WHITE BLOOD COUNT (AUTO) 12.4 K/uL (4.3-11.0)
[2023-05-17] MEDS ORDERED: ASCO-352 GT (15:02)
[2023-05-17] MEDS ORDERED: PETR113O TP (15:02)
[2023-05-17] MEDS ORDERED: NUT.237L30 GT (15:02)
[2023-05-17] MEDS ORDERED: DEXT50DI8 IV (15:02)
[2023-05-17] MEDS ORDERED: CRAN425C6 GT (15:02)
[2023-05-17] MEDS ORDERED: POLY17PO4 GT (15:02)
[2023-05-17] MEDS ORDERED: PANT40SU2 GT (15:02)
[2023-05-17 15:24] LABS: CALCIUM, SERUM 10.3 mg/dL (8.5-10.1); CREATININE 0.5 mg/dL (0.6-1.3); POTASSIUM 3.8 mmol/L (3.5-5.1)
[2023-05-17 15:34] LABS: ALBUMIN 3.3 g/dL (3.4-5.0); BILIRUBIN,DIRECT 0.1 mg/dL (0.0-0.2); BILIRUBIN,TOTAL 0.3 mg/dL (0.2-1.0); TOTAL PROTEIN, SERUM 9.2 g/dL (6.4-8.2)
[2023-05-17] MEDS ORDERED: MAG HYDROX/AL HYDROX/SIMETH 30 ML UDC PO PRN (18:30)
[2023-05-17] MEDS ORDERED: Z GUARD REMEDY 4 OZ OINT TP PRN (18:30)
[2023-05-17] MEDS ORDERED: ONDANSETRON HCL/PF 4 MG/2 ML VIAL IVP PRN (18:30)
[2023-05-17] MEDS ORDERED: MIDODRINE HCL (5MG) 5 MG TABLET GT PRN (18:30)
[2023-05-17] MEDS ORDERED: MAGNESIUM HYDROXIDE 30 ML UDC GT PRN ×2 (18:30→18:42)
[2023-05-17] MEDS ORDERED: NA PHOS,M-B/NA PHOS,DI-BA 1 EA ENEMA RC PRN (18:30)
[2023-05-17] MEDS ORDERED: BISACODYL SUPP (10 MG) 10 MG/SUPP.RECT SUPP.RECT RC PRN (18:30)
[2023-05-17] MEDS ORDERED: ACETAMINOPHEN 650 MG/20.3 ML UDC GT PRN ×2 (18:30→19:00)
[2023-05-17] MEDS ORDERED: ACETAMINOPHEN 325 MG TABLET PO PRN ×2 (18:30)
[2023-05-17] MEDS ORDERED: MAGNESIUM HYDROXIDE 30 ML UDC PO PRN (18:30)
[2023-05-17] MEDS ORDERED: MAG HYDROX/AL HYDROX/SIMETH 30 ML UDC GT PRN (18:42)
[2023-05-17 20:39] LABS: APPEARANCE,URINE CLEAR (CLEAR); BILIRUBIN,URINE NEGATIVE (NEGATIVE); BLOOD, URINE NEGATIVE Ery/uL (NEGATIVE); COLOR,URINE YELLOW (YELLOW); KETONES,URINE NEGATIVE (NEGATIVE); LEUKOCYTE ESTERASE ,URINE NEGATIVE (NEGATIVE); NITRITE, URINE NEGATIVE (NEGATIVE); PROTEIN,URINE NEGATIVE (NEGATIVE); UGLUCOSE NEGATIVE (NEGATIVE); UROBILINOGEN,URINE 0.2 EU/dL (0.2)
[2023-05-17] MEDS: POLYETHYLENE GLYCOL 3350 17 GM POWD.PACK GT SCH (22:48)
[2023-05-17] MEDS: LORAZEPAM INJ 2 MG/ML VIAL IV PRN (22:48)
[2023-05-18] MEDS ORDERED: LEVETIRACETAM SOL (5 ML) 100 MG/ML UDC ONE (03:17)
[2023-05-18] MEDS ORDERED: LEVETIRACETAM (250 MG) 250 MG TABLET PO ONE (03:20)
[2023-05-18] MEDS: LEVETIRACETAM SOL (5 ML) 100 MG/ML UDC GT SCH ×2 (03:31→15:03)
[2023-05-18 09:00] VITALS: BP 124/75; TEMP 97.8; O2SAT 99
[2023-05-18 09:09] LABS: BASOPHILS # (AUTO) 0.1 K/uL (0.0-0.2); EOSINOPHILS # (AUTO) 0.3 K/uL (0.0-0.7); EOSINOPHILS % (AUTO) 3.3 % (0.0-6.0); HEMATOCRIT 36 % (33-45); HEMOGLOBIN 11.5 g/dL (11.5-14.8); LYMPHOCYTES # (AUTO) 2.6 K/uL (0.8-4.8); LYMPHOCYTES % (AUTO) 24.8 % (20.0-44.0); MEAN CORPUSCULAR HEMOGLOBIN 27 PG (26.0-33.0); MEAN CORPUSCULAR HGB CONC 32 g/dl (31.0-36.0); MEAN CORPUSCULAR VOLUME 85 fL (82-100); MONOCYTES # (AUTO) 0.8 K/uL (0.1-1.30); MONOCYTES % (AUTO) 7.4 % (2.0-12.0); NEUTROPHILS # (AUTO) 6.7 K/uL (1.8-8.9); NEUTROPHILS % (AUTO) 63.5 % (43.0-81.0); PLATELET COUNT (AUTO) 265 K/uL (150-450); RED BLOOD CELL COUNT(AUTO) 4.19 MIL/uL (4.0-5.2); RED CELL DISTRIBUTION WIDTH 15.8 % (11.5-15.0); WHITE BLOOD COUNT (AUTO) 10.6 K/uL (4.3-11.0)
[2023-05-18] MEDS: DOCUSATE SODIUM LIQ 100 MG/10 ML UDC GT SCH (09:10)
[2023-05-18] MEDS: CHLORHEXIDINE GLUCONATE 15 ML UDC MM SCH ×2 (09:10→17:09)
[2023-05-18] MEDS: PANTOPRAZOLE 40 MG/PACK PACK GT SCH (09:10)
[2023-05-18] MEDS: FERROUS SULFATE UDC 300 MG/5 ML UDC GT SCH (09:10)
[2023-05-18] MEDS: LORAZEPAM INJ 2 MG/ML VIAL IV PRN ×2 (09:11→23:49)
[2023-05-18 09:27] LABS: CALCIUM, SERUM 10.5 mg/dL (8.5-10.1); CREATININE 0.4 mg/dL (0.6-1.3); MAGNESIUM 2.1 mg/dL (1.8-2.4); PHOSPHORUS 4.4 mg/dL (2.5-4.9); POTASSIUM 3.6 mmol/L (3.5-5.1)
[2023-05-18 12:00] VITALS: BP 131/75; TEMP 97.9; O2SAT 99
[2023-05-18] MEDS ORDERED: ZOSYN IVPB 4.5 G in IV D5W 50ml IV SCH (14:00)
[2023-05-18] MEDS: PIPERACILLIN /TAZOBACTAM 3.375 G in IV D5W 100 ML IV SCH ×2 (14:11→22:43)
[2023-05-18 16:00] VITALS: BP 150/75; TEMP 97.9; O2SAT 99
[2023-05-18] MEDS ORDERED: GLUCERNA 1.2 1,000 ML BOTTLE NG SCH (16:00)
[2023-05-18 20:00] VITALS: BP 102/79; TEMP 97.5; O2SAT 99
[2023-05-18] MEDS: POLYETHYLENE GLYCOL 3350 17 GM POWD.PACK GT SCH (22:43)
[2023-05-19] VITALS: BP 96/72; TEMP 97.7; O2SAT 100
[2023-05-19] MEDS: LEVETIRACETAM SOL (5 ML) 100 MG/ML UDC GT SCH ×2 (02:08→15:03)
[2023-05-19 04:00] VITALS: BP 103/81; TEMP 97.7; O2SAT 100
[2023-05-19] MEDS: PIPERACILLIN /TAZOBACTAM 3.375 G in IV D5W 100 ML IV SCH ×3 (06:21→22:31)
[2023-05-19 07:36] LABS: BASOPHILS % (AUTO) 0.4 % (0.0-2.0); EOSINOPHILS # (AUTO) 0.4 K/uL (0.0-0.7); EOSINOPHILS % (AUTO) 4.8 % (0.0-6.0); HEMATOCRIT 35 % (33-45); HEMOGLOBIN 11.3 g/dL (11.5-14.8); LYMPHOCYTES # (AUTO) 1.3 K/uL (0.8-4.8); MEAN CORPUSCULAR HEMOGLOBIN 28 PG (26.0-33.0); MEAN CORPUSCULAR HGB CONC 32 g/dl (31.0-36.0); MEAN CORPUSCULAR VOLUME 86 fL (82-100); MONOCYTES # (AUTO) 0.7 K/uL (0.1-1.30); MONOCYTES % (AUTO) 7.7 % (2.0-12.0); NEUTROPHILS # (AUTO) 6.6 K/uL (1.8-8.9); NEUTROPHILS % (AUTO) 73.1 % (43.0-81.0); PLATELET COUNT (AUTO) 239 K/uL (150-450); RED BLOOD CELL COUNT(AUTO) 4.11 MIL/uL (4.0-5.2); RED CELL DISTRIBUTION WIDTH 15.6 % (11.5-15.0)
[2023-05-19 08:00] VITALS: BP 110/62; TEMP 97.8; O2SAT 100
[2023-05-19] MEDS: CHLORHEXIDINE GLUCONATE 15 ML UDC MM SCH ×2 (08:07→16:36)
[2023-05-19] MEDS: LORAZEPAM INJ 2 MG/ML VIAL IV PRN (08:07)
[2023-05-19] MEDS: FERROUS SULFATE UDC 300 MG/5 ML UDC GT SCH (08:07)
[2023-05-19] MEDS: DOCUSATE SODIUM LIQ 100 MG/10 ML UDC GT SCH (08:07)
[2023-05-19] MEDS: PANTOPRAZOLE 40 MG/PACK PACK GT SCH (08:08)
[2023-05-19 08:14] LABS: CREATININE 0.4 mg/dL (0.6-1.3); POTASSIUM 3.3 mmol/L (3.5-5.1)
[2023-05-19] MEDS: PROSOURCE / PROSTAT (PYXIS) 30 ML UDC GT SCH (09:02)
[2023-05-19] MEDS ORDERED: POTASSIUM CHLORIDE 20 MEQ POWDER PACKET NG SCH (11:30)
[2023-05-19 12:00] VITALS: BP 112/82; TEMP 98.9; O2SAT 100
[2023-05-19 16:00] VITALS: BP 110/69; TEMP 98.4; O2SAT 100
[2023-05-19] MEDS: GLUCERNA 1.2 1,000 ML BOTTLE NG SCH (17:01)
[2023-05-19 20:00] VITALS: BP 110/83; TEMP 98.8; O2SAT 100
[2023-05-19] MEDS: POLYETHYLENE GLYCOL 3350 17 GM POWD.PACK GT SCH (22:32)
[2023-05-20] VITALS: BP 105/79; TEMP 97.3; O2SAT 100
[2023-05-20] MEDS: LORAZEPAM INJ 2 MG/ML VIAL IV PRN ×2 (01:59→09:08)
[2023-05-20] MEDS: LEVETIRACETAM SOL (5 ML) 100 MG/ML UDC GT SCH ×2 (03:05→15:34)
[2023-05-20 04:00] VITALS: BP 103/76; TEMP 98; O2SAT 100
[2023-05-20] MEDS: PIPERACILLIN /TAZOBACTAM 3.375 G in IV D5W 100 ML IV SCH ×3 (05:22→22:45)
[2023-05-20 08:00] VITALS: BP 105/72; TEMP 97.9; O2SAT 100
[2023-05-20 08:03] LABS: BASOPHILS # (AUTO) 0.1 K/uL (0.0-0.2); BASOPHILS % (AUTO) 0.8 % (0.0-2.0); EOSINOPHILS # (AUTO) 0.5 K/uL (0.0-0.7); EOSINOPHILS % (AUTO) 6.2 % (0.0-6.0); HEMATOCRIT 33 % (33-45); HEMOGLOBIN 10.8 g/dL (11.5-14.8); LYMPHOCYTES # (AUTO) 1.2 K/uL (0.8-4.8); LYMPHOCYTES % (AUTO) 15.4 % (20.0-44.0); MEAN CORPUSCULAR HEMOGLOBIN 28 PG (26.0-33.0); MEAN CORPUSCULAR HGB CONC 33 g/dl (31.0-36.0); MEAN CORPUSCULAR VOLUME 85 fL (82-100); MONOCYTES # (AUTO) 0.5 K/uL (0.1-1.30); MONOCYTES % (AUTO) 5.9 % (2.0-12.0); NEUTROPHILS # (AUTO) 5.6 K/uL (1.8-8.9); NEUTROPHILS % (AUTO) 71.7 % (43.0-81.0); PLATELET COUNT (AUTO) 236 K/uL (150-450); RED BLOOD CELL COUNT(AUTO) 3.89 MIL/uL (4.0-5.2); RED CELL DISTRIBUTION WIDTH 15.5 % (11.5-15.0); WHITE BLOOD COUNT (AUTO) 7.8 K/uL (4.3-11.0)
[2023-05-20 08:29] LABS: CALCIUM, SERUM 9.8 mg/dL (8.5-10.1); CREATININE 0.4 mg/dL (0.6-1.3); POTASSIUM 3.3 mmol/L (3.5-5.1)
[2023-05-20] MEDS: PANTOPRAZOLE 40 MG/PACK PACK GT SCH (08:52)
[2023-05-20] MEDS: PROSOURCE / PROSTAT (PYXIS) 30 ML UDC GT SCH (08:52)
[2023-05-20] MEDS: FERROUS SULFATE UDC 300 MG/5 ML UDC GT SCH (08:52)
[2023-05-20] MEDS: CHLORHEXIDINE GLUCONATE 15 ML UDC MM SCH ×2 (08:52→16:49)
[2023-05-20] MEDS: DOCUSATE SODIUM LIQ 100 MG/10 ML UDC GT SCH (08:52)
[2023-05-20] MEDS ORDERED: POTASSIUM CHLORIDE 20 MEQ POWDER PACKET GT ONE (11:00)
[2023-05-20 12:00] VITALS: BP 102/70; TEMP 97.9; O2SAT 100
[2023-05-20] MEDS: GLUCERNA 1.2 1,000 ML BOTTLE NG SCH (15:40)
[2023-05-20 16:00] VITALS: BP 108/74; TEMP 98.1; O2SAT 100
[2023-05-20 20:00] VITALS: BP 118/83; TEMP 97.2; O2SAT 100
[2023-05-20] MEDS: POLYETHYLENE GLYCOL 3350 17 GM POWD.PACK GT SCH (22:44)
[2023-05-21] VITALS: BP 110/81; TEMP 97.4; O2SAT 100
[2023-05-21] MEDS: LEVETIRACETAM SOL (5 ML) 100 MG/ML UDC GT SCH ×2 (02:41→15:06)
[2023-05-21 04:00] VITALS: BP 120/73; TEMP 97.4; O2SAT 100
[2023-05-21] MEDS: PIPERACILLIN /TAZOBACTAM 3.375 G in IV D5W 100 ML IV SCH ×2 (05:26→14:15)
[2023-05-21 07:50] LABS: BASOPHILS % (AUTO) 0.4 % (0.0-2.0); EOSINOPHILS # (AUTO) 0.5 K/uL (0.0-0.7); EOSINOPHILS % (AUTO) 6.3 % (0.0-6.0); HEMATOCRIT 33 % (33-45); HEMOGLOBIN 10.6 g/dL (11.5-14.8); LYMPHOCYTES # (AUTO) 1.2 K/uL (0.8-4.8); LYMPHOCYTES % (AUTO) 16.7 % (20.0-44.0); MEAN CORPUSCULAR HEMOGLOBIN 28 PG (26.0-33.0); MEAN CORPUSCULAR HGB CONC 33 g/dl (31.0-36.0); MEAN CORPUSCULAR VOLUME 85 fL (82-100); MONOCYTES # (AUTO) 0.4 K/uL (0.1-1.30); MONOCYTES % (AUTO) 5.9 % (2.0-12.0); NEUTROPHILS # (AUTO) 5.1 K/uL (1.8-8.9); NEUTROPHILS % (AUTO) 70.7 % (43.0-81.0); PLATELET COUNT (AUTO) 240 K/uL (150-450); RED BLOOD CELL COUNT(AUTO) 3.82 MIL/uL (4.0-5.2); RED CELL DISTRIBUTION WIDTH 15.6 % (11.5-15.0); WHITE BLOOD COUNT (AUTO) 7.2 K/uL (4.3-11.0)
[2023-05-21 08:00] VITALS: BP 116/85; TEMP 98.5; O2SAT 100
[2023-05-21 08:19] LABS: CALCIUM, SERUM 9.9 mg/dL (8.5-10.1); CREATININE 0.4 mg/dL (0.6-1.3); POTASSIUM 3.7 mmol/L (3.5-5.1)
[2023-05-21] MEDS: CHLORHEXIDINE GLUCONATE 15 ML UDC MM SCH ×2 (09:00→16:38)
[2023-05-21] MEDS: FERROUS SULFATE UDC 300 MG/5 ML UDC GT SCH (09:00)
[2023-05-21] MEDS: PANTOPRAZOLE 40 MG/PACK PACK GT SCH (09:00)
[2023-05-21] MEDS: DOCUSATE SODIUM LIQ 100 MG/10 ML UDC GT SCH (09:00)
[2023-05-21] MEDS: PROSOURCE / PROSTAT (PYXIS) 30 ML UDC GT SCH (09:02)
[2023-05-21] MEDS ORDERED: LEVE100S GT (10:33)
[2023-05-21] MEDS: LORAZEPAM INJ 2 MG/ML VIAL IV PRN (11:57)
[2023-05-21 12:00] VITALS: BP 116/81; TEMP 98.7; O2SAT 100
[2023-05-21 16:00] VITALS: BP 101/69; TEMP 97.8; O2SAT 100
== END 2023-05-21 17:14 | DRG 53 ==
LOC: ER 14:03 → TRANSITION 18:55 → TELE1 05-18 08:16 → TELE-TD 05-18 08:35 → TELE1 05-19 10:18
PROVIDERS: ADMIT Internal Medicine; ATTEND Internal Medicine
PROC: 5A1955Z Respiratory Ventilation, Greater than 96 Consecutive Hours (ICD-10-PCS; principal; 2023-05-17)
PROC: 05HY33Z Insertion of Infusion Device into Upper Vein, Percutaneous Approach (ICD-10-PCS; 2023-05-19)
DX: G40.911 Epilepsy, unspecified, intractable, with status epilepticus (principal); G93.41 Metabolic encephalopathy; E43 Unspecified severe protein-calorie malnutrition; J90 Pleural effusion, not elsewhere classified; D68.59 Other primary thrombophilia; R53.2 Functional quadriplegia; E87.1 Hypo-osmolality and hyponatremia; E88.09 Other disorders of plasma-protein metabolism, not elsewhere classified; J81.1 Chronic pulmonary edema; J96.10 Chronic respiratory failure, unspecified whether with hypoxia or hypercapnia; G90.8 Other disorders of autonomic nervous system; S06.9XAA Unspecified intracranial injury with loss of consciousness status unknown, initial encounter; Z99.11 Dependence on respirator [ventilator] status; Z93.0 Tracheostomy status; I10 Essential (primary) hypertension; X58.XXXA Exposure to other specified factors, initial encounter; R13.10 Dysphagia, unspecified; Z93.1 Gastrostomy status; Z20.822 Contact with and (suspected) exposure to COVID-19; K29.70 Gastritis, unspecified, without bleeding; Z79.51 Long term (current) use of inhaled steroids; Z79.899 Other long term (current) drug therapy; Z74.09 Other reduced mobility; E87.70 Fluid overload, unspecified; J98.11 Atelectasis; Z86.73 Personal history of transient ischemic attack (TIA), and cerebral infarction without residual deficits
CPT/HCPCS: 31720; 36410; 36415; 71045-TC; 80048-TC; 80076-TC; 82962-TC; 83735-TC; 84100-TC; 85025-TC; 87081-TC; 94003-TC; 94760-TC; 94799-TC; A4217; A4223; A4623; A6253; G0378; J1953; J2060; J2543; J7030; J7040; J7050; J7060

== ENCOUNTER 2025-01-24 10:54 | Inpatient (IN) | payer BC ==
[~2025-01-24] VITALS: Ht 167.6 cm; Wt 94.6 kg
[~2025-01-24 10:54] MED LIST changes: +ASCO-352 GT; +CRAN425C6 GT; +DEXT50DI8 IV; -LACT-209 GT; +NUT.237L30 GT; +PETR113O TP; -PIPE3.379 IV; +POLY17PO4 GT; -VANC1PLA9 IV
[2025-01-24] MEDS ORDERED: ACETAMINOPHEN 650 MG/SUPP.RECT RC ONE (11:11)
[2025-01-24] MEDS ORDERED: CEFTRIAXONE 1GM BAG (ER ONLY) 50 ML IV ONE (11:11)
[2025-01-24 11:23] LABS: PLATELET COUNT (AUTO) 457 K/uL (150-450); RED BLOOD CELL COUNT(AUTO) 2.84 MIL/uL (4.0-5.2); RED CELL DISTRIBUTION WIDTH 13.9 % (11.5-15.0); WHITE BLOOD COUNT (AUTO) 16.4 K/uL (4.3-11.0)
[2025-01-24] MEDS: CEFTRIAXONE 1GM BAG (ER ONLY) 50 ML IV ONE (11:24)
[2025-01-24] MEDS: ACETAMINOPHEN 650 MG/SUPP.RECT RC ONE (11:25)
[2025-01-24 11:34] LABS: CALCIUM, SERUM 10.2 mg/dL (8.5-10.1); CREATININE 1.1 mg/dL (0.6-1.3); SODIUM SERUM 139 mmol/L (136-145); UREA NITROGEN, BLOOD 14 mg/dL (7-18)
[2025-01-24 11:35] LABS: INR 1.13 (0.91-1.10)
[2025-01-24 11:41] LABS: LACTIC ACID 2.2 mmol/L (0.4-2.0)
[2025-01-24 11:46] LABS: ASPARTATE AMINOTRANSFERASE 25 U/L (15-37); TOTAL PROTEIN, SERUM 9.0 g/dL (6.4-8.2)
[2025-01-24 12:09] LABS: APPEARANCE,URINE CLEAR (CLEAR); BLOOD, URINE NEGATIVE Ery/uL (NEGATIVE); LEUKOCYTE ESTERASE ,URINE 1+ (NEGATIVE); NITRITE, URINE NEGATIVE (NEGATIVE); UGLUCOSE NEGATIVE (NEGATIVE)
[2025-01-24 12:25] LABS: ADD URINE CULTURE YES; SQUAMOUS EPITHELIAL CELL,UR Rare /HPF (None Seen)
[2025-01-24] MEDS ORDERED: INSU100V7 SQ (12:37)
[2025-01-24] MEDS ORDERED: IPRA3AMP22 IH ×2 (12:37)
[2025-01-24] MEDS ORDERED: LACO200T2 GT (12:37)
[2025-01-24] MEDS ORDERED: LEVE100S GT (12:37)
[2025-01-24] MEDS ORDERED: BUME1TAB8 GT (12:37)
[2025-01-24] MEDS ORDERED: INSU100V9 SQ (12:37)
[2025-01-24] MEDS ORDERED: CRANBERRY-VITAMIN C GT (12:37)
[2025-01-24] MEDS ORDERED: ACET-868 GT (12:37)
[2025-01-24] MEDS ORDERED: INDO50CA92 GT (12:37)
[2025-01-24] MEDS ORDERED: NORM10004 IV (12:37)
[2025-01-24] MEDS ORDERED: GLUC1KIT SQ (12:37)
[2025-01-24] MEDS ORDERED: CEFE1PIG3 IV (12:37)
[2025-01-24] MEDS: IV NS 0.9% 1,000 ML BAG IV ONE (12:50)
[2025-01-24] MEDS: AZITHROMYCIN 500 MG in IV D5W 250 ML IV ONE (13:03)
[2025-01-24] MEDS ORDERED: DOSING PER PHARMACY-VANCOMYCIN IV XX PRN (14:30)
[2025-01-24] MEDS ORDERED: ACETAMINOPHEN 325 MG TABLET PO PRN (14:30)
[2025-01-24] MEDS ORDERED: ONDANSETRON HCL/PF 4 MG/2 ML VIAL IVP PRN (14:30)
[2025-01-24] MEDS ORDERED: MAGNESIUM HYDROXIDE 30 ML UDC PO PRN (14:30)
[2025-01-24] MEDS ORDERED: ZOLPIDEM TARTRATE 5 MG TABLET PO PRN (14:30)
[2025-01-24] MEDS ORDERED: Z GUARD REMEDY 4 OZ OINT TP PRN (14:30)
[2025-01-24] MEDS ORDERED: MAG HYDROX/AL HYDROX/SIMETH 30 ML UDC PO PRN (14:30)
[2025-01-24] MEDS ORDERED: DOSING PER PHARMACY-CEFEPIME IVPB XX PRN (14:30)
[2025-01-24 15:07] VITALS: BP 103/77; TEMP 97.9; O2SAT 100
[2025-01-24] MEDS: VANCOMYCIN 500 MG in IV D5W 100ml IV ONE (15:31)
[2025-01-24] MEDS: ENOXAPARIN SODIUM 40 MG/0.4 ML DISP.SYRIN SQ SCH (15:34)
[2025-01-24] MEDS: VANCOMYCIN 1 GM in IV D5W 250ml IV ONE (15:34)
[2025-01-24] MEDS: HYDROCORTISONE SOD SUCCINATE 100 MG/2 ML VIAL IV SCH (15:35)
[2025-01-24] MEDS: IV NS 0.9% 1,000 ML IV PRN (16:15)
[2025-01-24 16:16] VITALS: BP 101/79; TEMP 98.3; O2SAT 100
[2025-01-24] MEDS: CEFEPIME 2 GM in IV D5W 100 ML IV SCH (16:50)
[2025-01-24 20:00] VITALS: BP 115/84; TEMP 98.2; O2SAT 99
[2025-01-25] VITALS: BP 119/78; TEMP 98.2; O2SAT 99
[2025-01-25 04:00] VITALS: BP 138/83; TEMP 98.1; O2SAT 99
[2025-01-25] MEDS: VANCOMYCIN 1 GM in IV D5W 250ml IV SCH (04:01)
[2025-01-25] MEDS ORDERED: PANTOPRAZOLE 40 MG TABLET.DR PO SCH (07:30)
[2025-01-25 08:00] VITALS: BP 148/84; TEMP 97.7; O2SAT 96
[2025-01-25] MEDS: PANTOPRAZOLE 40 MG/PACK PACK GT SCH (08:43)
[2025-01-25] MEDS ORDERED: GLUCERNA 1.2 1,000 ML BOTTLE GT PRN (11:00)
[2025-01-25 11:40] LABS: PLATELET COUNT (AUTO) 518 K/uL (150-450); RED BLOOD CELL COUNT(AUTO) 3.00 MIL/uL (4.0-5.2); RED CELL DISTRIBUTION WIDTH 13.8 % (11.5-15.0); WHITE BLOOD COUNT (AUTO) 14.7 K/uL (4.3-11.0)
[2025-01-25 11:56] LABS: CALCIUM, SERUM 9.6 mg/dL (8.5-10.1); CREATININE 0.6 mg/dL (0.6-1.3); PHOSPHORUS 2.7 mg/dL (2.5-4.9); SODIUM SERUM 139.0 mmol/L (136-145); UREA NITROGEN, BLOOD 9.0 mg/dL (7-18)
[2025-01-25 12:09] VITALS: BP 132/73; TEMP 97.9; O2SAT 96
[2025-01-25] MEDS: LEVETIRACETAM SOL (5 ML) 100 MG/ML UDC GT SCH (12:13)
[2025-01-25] MEDS: LACOSAMIDE ORAL SOLN 50 MG/5 ML UDC GT SCH (12:44)
[2025-01-25] MEDS ORDERED: NA PHOS,M-B/NA PHOS,DI-BA 1 EA ENEMA RC PRN (13:30)
[2025-01-25] MEDS ORDERED: DEXTROSE 50%-WATER 50 ML DISP.SYRIN IV PRN (13:30)
[2025-01-25] MEDS: GLUCERNA 1.2 1,000 ML BOTTLE NG PRN (14:57)
[2025-01-25] MEDS: IV 1/2NS 1000 ML 1,000 ML IV PRN (15:22)
[2025-01-25 16:00] VITALS: BP 127/76; TEMP 98.2; O2SAT 98
[2025-01-25] MEDS: CHLORHEXIDINE GLUCONATE 15 ML UDC MM SCH (16:06)
[2025-01-25] MEDS: INSULIN REGULAR, HUMAN 100 UNIT/ML 3 ML VIAL SQ PRN (17:30)
[2025-01-25] MEDS: BLOOD SUGAR DIAGNOSTIC 1 EACH STRIP IN SCH (17:36)
[2025-01-25 18:34] LABS: PREGNANCY TEST URINE QUAL NEGATIVE (NEGATIVE)
[2025-01-25 20:00] VITALS: BP 112/70; TEMP 98.6; O2SAT 96
[2025-01-25] MEDS ORDERED: LEVETIRACETAM SOL (5 ML) 100 MG/ML UDC GT SCH (21:00)
[2025-01-25] MEDS: INSULIN GLARGINE, 100 UNIT/ML CARTRIDGE SQ SCH (23:08)
[2025-01-26] VITALS: BP 117/76; TEMP 98.4; O2SAT 96
[2025-01-26 04:00] VITALS: BP 120/77; TEMP 98.4; O2SAT 99
[2025-01-26 08:00] VITALS: BP 111/70; TEMP 97.9; O2SAT 96
[2025-01-26] MEDS: DOCUSATE SODIUM 100 MG CAPSULE PO SCH (08:32)
[2025-01-26 12:00] VITALS: BP 118/65; TEMP 98.1; O2SAT 96
[2025-01-26 16:00] VITALS: BP 119/71; TEMP 98.2; O2SAT 96
[2025-01-26] MEDS: VANCOMYCIN HCL 1.25 GM in IV D5W 250 ML IV SCH (16:16)
[2025-01-26 20:00] VITALS: BP 111/72; TEMP 98.8; O2SAT 98
[2025-01-26] MEDS: GLUCERNA 1.2 1,000 ML BOTTLE GT SCH (22:16)
[2025-01-27] VITALS: BP 108/71; TEMP 98.6; O2SAT 100
[2025-01-27 04:00] VITALS: BP 111/74; TEMP 98.2; O2SAT 99
[2025-01-27 06:25] LABS: PLATELET COUNT (AUTO) 591 K/uL (150-450); RED BLOOD CELL COUNT(AUTO) 2.95 MIL/uL (4.0-5.2); RED CELL DISTRIBUTION WIDTH 13.8 % (11.5-15.0); WHITE BLOOD COUNT (AUTO) 13.3 K/uL (4.3-11.0)
[2025-01-27 06:28] LABS: ASPARTATE AMINOTRANSFERASE 19.0 U/L (15-37); CALCIUM, SERUM 9.5 mg/dL (8.5-10.1); CREATININE 0.7 mg/dL (0.6-1.3); PHOSPHORUS 2.9 mg/dL (2.5-4.9); SODIUM SERUM 140.0 mmol/L (136-145); TOTAL PROTEIN, SERUM 7.2 g/dL (6.4-8.2); UREA NITROGEN, BLOOD 13.0 mg/dL (7-18)
[2025-01-27 07:30] VITALS: BP 117/76; TEMP 97.7; O2SAT 100
[2025-01-27] MEDS: POTASSIUM CHLORIDE 20 MEQ POWDER PACKET GT ONE (08:36)
[2025-01-27 14:22] VITALS: BP 107/70; TEMP 98.2; O2SAT 99
[2025-01-27] MEDS: MEROPENEM 1 G in IV NS 0.9% 100 ML IV SCH (15:22)
[2025-01-27 16:00] VITALS: BP_SYST 115; BP_SYST 144; BP_DIAS 74; BP_DIAS 75; TEMP 98.4; TEMP 98.7; O2SAT 99
[2025-01-27 20:00] VITALS: BP 109/69; TEMP 98.4; O2SAT 99
[2025-01-28] VITALS: BP 135/79; TEMP 98.4; O2SAT 99
[2025-01-28 04:00] VITALS: BP 116/74; TEMP 98.3; O2SAT 100
[2025-01-28 07:07] LABS: PLATELET COUNT (AUTO) 248 K/uL (150-450); RED BLOOD CELL COUNT(AUTO) 3.06 MIL/uL (4.0-5.2); RED CELL DISTRIBUTION WIDTH 13.9 % (11.5-15.0); WHITE BLOOD COUNT (AUTO) 13.3 K/uL (4.3-11.0)
[2025-01-28 07:24] LABS: CALCIUM, SERUM 9.0 mg/dL (8.5-10.1); CREATININE 0.6 mg/dL (0.6-1.3); PHOSPHORUS 3.3 mg/dL (2.5-4.9); SODIUM SERUM 140.0 mmol/L (136-145); UREA NITROGEN, BLOOD 15.0 mg/dL (7-18)
[2025-01-28 08:00] VITALS: BP 134/69; TEMP 97.3; O2SAT 100
[2025-01-28] MEDS: DOCUSATE SODIUM LIQ 100 MG/10 ML UDC PO SCH (08:13)
[2025-01-28 12:00] VITALS: BP 116/70; TEMP 97.5; O2SAT 100
[2025-01-28] MEDS ORDERED: MERO1PIG IV (13:17)
== END 2025-01-28 19:03 | DRG 720 ==
LOC: ER 11:00 → TELE1 12:55 → TELE-TD 14:40 → TELE1 01-25 11:54
PROVIDERS: ATTEND Nurse Practitioner Acute Care
PROC: 5A1955Z Respiratory Ventilation, Greater than 96 Consecutive Hours (ICD-10-PCS; principal; 2025-01-24)
DX: A41.9 Sepsis, unspecified organism (principal); Z99.11 Dependence on respirator [ventilator] status; G93.41 Metabolic encephalopathy; R53.2 Functional quadriplegia; J15.69 Pneumonia due to other Gram-negative bacteria; Z93.0 Tracheostomy status; J96.10 Chronic respiratory failure, unspecified whether with hypoxia or hypercapnia; E11.9 Type 2 diabetes mellitus without complications; N39.0 Urinary tract infection, site not specified; Z93.1 Gastrostomy status; Z86.73 Personal history of transient ischemic attack (TIA), and cerebral infarction without residual deficits; R13.10 Dysphagia, unspecified; Z79.51 Long term (current) use of inhaled steroids; Z79.4 Long term (current) use of insulin; Z79.899 Other long term (current) drug therapy; B96.20 Unspecified Escherichia coli [E. coli] as the cause of diseases classified elsewhere; B96.4 Proteus (mirabilis) (morganii) as the cause of diseases classified elsewhere; D64.9 Anemia, unspecified; D68.59 Other primary thrombophilia; Z74.09 Other reduced mobility; I10 Essential (primary) hypertension; G40.909 Epilepsy, unspecified, not intractable, without status epilepticus; L60.3 Nail dystrophy; E66.9 Obesity, unspecified; Z68.33 Body mass index [BMI] 33.0-33.9, adult; Z16.12 Extended spectrum beta lactamase (ESBL) resistance; Z86.14 Personal history of Methicillin resistant Staphylococcus aureus infection
CPT/HCPCS: 31720; 36415; 71045-TC; 80048-TC; 80053-TC; 80076-TC; 80202-TC; 81001; 82962-TC; 83605-TC; 83735-TC; 84100-TC; 84703-TC; 85025-TC; 85730-TC; 87040-TC; 87070-TC; 87075-TC; 87081-TC; 87086-TC; 87186-TC; 94002-TC; 94003-TC; 94760-TC; 94761-TC; 94762-TC; 94799-TC; 99082-TC; A4223; G0378; J0456; J0692; J0696; J1650; J1720; J1815; J1953; J2185; J3373; J3490; J7030; J7060